=== PATIENT | male | born 1960 | race Caucasian/White ===

== ENCOUNTER 2025-02-25 11:10 | Observation (INO) | payer OTHER, SELFPAY ==
[2025-02-16 15:21] LABS: Hematocrit 42.1 % (40-54); Hemoglobin 13.8 g/dL (13.0-16.5); Immature Granulocytes Count 0.020 X10^3/uL (0.0-0.0); Mean Corp Hgb Conc 32.8 g/dL (32-36); Mean Corpuscular Volume 94.4 fL (80-94); Mean Platelet Vol. 11.4 fl (6.2-12.0); NRBC Flagged by Analyzer 0 % (0-5); Platelet Count 209 K/mm3 (150-450); RBC Distribution Width CV 13.5 % (11.6-14.6); RBC Distribution Width SD 47.3 fl (35.1-43.9); Red Blood Count 4.46 M/mm3 (4.6-6.2); White Blood Count 4.6 K/mm3 (4.4-11.0)
[2025-02-16 16:24] LABS: Anion Gap 11 (5-15); BUN 22 mg/dL (4-19); BUN/Creat Ratio 16.1 RATIO (10-20); Calcium,Total 9.4 mg/dL (7.6-11.0); Carbon Dioxide 25.3 mmol/L (21.0-32.0); Chloride 102 mmol/L (98-108); Glucose 136 mg/dL (70-99); Potassium 4.6 mmol/L (3.3-5.1)
[2025-02-24 10:53] VITALS: BMI 41.1
[2025-02-25] VITALS (13 sets, daily range): BP systolic 106–129; BP diastolic 64–80; PULSE 59–68; RESP 15–18; TEMP 36.1–36.6; O2SAT 96–99
--- NOTE | 2025-02-25 11:00 | EKG12_ITS ---
Test Reason : POST PCI
--- NOTE | 2025-02-25 11:03 | DCINST_ITS ---
Discharge Instructions
--- NOTE | 2025-02-25 11:03 | PCM.DC ---
Discharge Instructions DC O2, CPAP, BIPAP needs Home O2 Discharge instructions: No Dressing / Incision May resume sexual activity in: 1-2 weeks Dressing / Incision Call your doctor if your incision/area has: Continuous Slow Oozing, Sudden Increased Bleeding, Increased Pain/ Swelling, Increased Redness and Foul Smelling Discharge Follow Up Care Please Follow Up With: Gaston Cantu MD When: 2-4 weeks Test Results: Test results from this visit will be discussed in further detail at your follow-up appointment, if applicable. Discharge Plan Admission Attending Provider: Gaston Cantu Primary Care Provider: Christopher Acosta Instructions Print Language: Nigerien Discharge Orders/Prescriptions Prescriptions: New clopidogrel 75 mg Tablet 75 mg PO DAILY Qty: 30 11RF nitroglycerin 0.4 mg Tablet, Sublingual 0.4 mg sublingual Q5M PRN (Reason: Cardiac/Chest Pain) Qty: 15 3RF metoprolol tartrate 25 mg Tablet 12.5 mg PO BID Qty: 60 6RF Continued pioglitazone 45 mg tablet 45 mg PO QDAY levothyroxine [Synthroid] 125 mcg tablet 125 mcg PO QDAY rosuvastatin 10 mg tablet 10 mg PO QDAY bupropion HCl [Wellbutrin XL] 150 mg tablet extended release 24 hr 150 mg PO QAM dapagliflozin propanediol [Farxiga] 10 mg tablet 10 mg PO QDAY prasterone (DHEA) 50 mg capsule 50 mg PO QDAY coenzyme Q10 [Co Q-10] 50 mg capsule 50 mg PO QDAY cholecalciferol (vitamin D3) 125 mcg (5,000 unit) capsule 125 mcg PO QDAY fenofibrate 160 mg tablet 160 mg PO QDAY mecobalamin (vitamin B12) 1,000 mcg tablet,chewable 1,000 mcg PO QDAY ferrous sulfate [Feosol] 325 mg (65 mg iron) tablet 325 mg PO BID aspirin [Adult Aspirin Regimen] 81 mg tablet,delayed release (DR/EC) 81 mg PO DAILY Qty: 90 3RF Held metformin 1,000 mg tablet 1,000 mg PO BID Hold Instructions: Resume on 03/01/25. Referrals / Follow Up: Christopher Acosta PA [Primary Care Provider, Family Practice] Disposition Disposition (needs filled in before D/C Order can be placed): Home, Self Care
[2025-02-25 11:09] LABS: ACT Activated Clotting Time 225 sec (74-137)
[2025-02-25 11:09] LABS: ACT Activated Clotting Time 230 sec (74-137)
--- NOTE | 2025-02-25 11:37 | CRPHASE1_ITS ---
Patient Communication
--- NOTE | 2025-02-25 11:37 | CRPHASE1 ---
Patient Communication Patient Information PHII Cardiac Rehab Discussed with Patient:: Yes Guide to Cardiac Rehab Given to Patient:: Yes Cardiac Rehab Facility Choice List Given to Patient:: Yes Communication to Cardiac Rehab Choice Program [facility] CR PHII:: Communication Given to CR Property Management Bookkeeper:: Migel Miguel Phase II Cardiac Rehab:: Yes Sessions:: 36 sessions - 3 days/wk, 12 weeks Cardiac Rehabilitation Info Program Information Cardiac Rehabilitation Program Information: Cardiac Rehab The cardiac rehab team at [facility] consists of highly skilled exercise physiologists, nurses, respiratory therapists and physicians working together with you. Our purpose is to help you have a full recovery and achieve the goals you set for yourself. Over the years many of our patients have returned to activities they assumed they would never do again! We can help restore your confidence and motivation to make lifestyle changes that can have a significant impact on your health and quality of life! We can help answer questions and concerns you may have about exercise, lifestyle, medications, diet, stress and anxiety which are common following a hospitalization. WE monitor ECG and vital signs during exercise and discuss your progress with you and report to your physician(s). Cardiac Rehab is proven to help reduce readmissions, improve functional capacity and lower recurrence of problems with your heart. Our Cardiac Rehab program is Certified by the [place] [employer]monary [employer] (AACVPR) and Accredited by the [place] [employer] through our [facility]. You can contact us at . We invite you to call us with your questions or to get started in our program. If you have other questions or concerns be sure to ask your physician/provider during your follow-up visit. WE look forward to seeing you!
--- NOTE | 2025-02-25 11:38 | CRPH1.INSTRU ---
General Education Discussed with Patient CAD and cardiac anatomy and function:: Patient communicates acknowledgment Explanation of diagnoses and procedures:: Patient communicates acknowledgment Sign/Symptoms of KS:: Patient communicates acknowledgment Antiplatelet therapy: Patient communicates acknowledgment Proper use of NTG-SL: Patient communicates acknowledgment Emergency procedures and activation of EMS: Patient communicates acknowledgment Compliance of all prescribed medications: Patient communicates acknowledgment Smoking Risk Factors Patient Nicotine/Smoking Risk Factors Are:: Never smoked Dyslipidemia Risk Factors Patient Dyslipidemia Risk Factors Are:: Total Cholesterol, Triglycerides, HDL and LDL Recommendations Recommendations Include:: Lipid profile not available, Reviewed NCEP/ATP guidelines and Therapeutic Lifestyle Change dietary guidelines Response Code Dyslipidemia Response Code:: Patient communicates acknowledgment Overweight/Obesity Risk Factors Patient Overweight/Obesity Risk Factors Are:: Overweight = 26-29 Recommendations Recommendations Include:: Weight loss of 5-10%, Reduced calorie diet and Exercise 5-7 times/week Response Code Overweight/Obesity:: Patient communicates acknowledgment Hypertension Risk Factors Patient Hypertension Risk Factors Are:: No documented hx of HTN Heart Disease Risk Factors Patient Heart Disease Risk Factors Are:: Family history of heart disease < 65 years old Response Code Heart Disease Response Code:: Not instructed Diabetes Risk Factors Patient Diabetes Risk Factors Are:: Elevated blood sugars and Post-op hyperglycemia Recommendations Recommendations Include:: Maintain fasting blood sugars 70-110 md/dL, Maintain HgbA1c of 6% or less, Monitor blood sugar as prescribed, Diabetic dietary guidelines and Decrease/maintain body weight Response Code Diabetes:: Patient communicates acknowledgment Metabolic Syndrome Risk Factors Patient Metabolic Syndrome Risk Factors Are [3 of 5]:: Fasting blood sugar > 100 mg/dL, Waist circumference > 35 [female] or 40 [male], High triglyceride >150 and Low HDL <40 [male] or < 50 [female] Recommendations Recommendations Include:: Patient is diabetic and Encouraged follow-up with Primary Care Physician Response Code Metabolic Syndrome Response Code:: Patient communicates acknowledgment Sedentary Risk Factors Patient Sedentary Risk Factors Are:: Lack of regular exercise Recommendations Recommendations Include:: Aerobic exercise 5-7 times/week for 20-30 minutes continuously, Benefits of regular exercise, Discussed home walking program and Monitored Outpatient Cardiac Rehab Response Code Sedentary Response Code:: Patient communicates acknowledgment Stress Recommendations Recommendations Include:: Identification of stressors, and assessment of coping skills and Stress management techniques Response Code Stress Response Code:: Patient communicates acknowledgment
[2025-02-25] MEDS: 0.9% Normal Saline (1000mL) 1,000 ML 150 ML IV (12:48)
[2025-02-25] MEDS: Pioglitazone Hydrochloride 45 MG Tablet PO (13:00)
--- NOTE | 2025-02-25 14:46 | PHA.DC_ITS ---
Pharmacy DC Med Rec Counseling
--- NOTE | 2025-02-25 14:46 | PHA.DC.MC.R ---
Pharmacy [facility] Counseling Pharmacy Service has performed discharge medication reconciliation and counseling for this patient. The patient's discharge medication list was reviewed for discrepancies and discrepancies were resolved. The patient was counseled on the following discharge medications and changes in medications for homegoing were reviewed. The Reason for Use, instructions for use, and potential side effects were reviewed for all new medications. The patient's questions regarding all of their medications were answered. 1. Clopidogrel 75 mg PO daily 2. Metoprolol tartrate 12.5 mg PO BID 3. Nitroglycerin 0.4 mg SL Q5M PRN chest pain The patient was able to verbally demonstrate an understanding of their discharge medications. Medications at Discharge Home Medications bupropion HCl 150 mg 24 hr tablet, extended release (Wellbutrin XL) 150 mg PO QAM 01/31/25 cholecalciferol (vitamin D3) 125 mcg (5,000 unit) capsule 125 mcg PO QDAY 01/31/25 coenzyme Q10 50 mg capsule (Co Q-10) 50 mg PO QDAY 01/31/25 dapagliflozin propanediol 10 mg tablet (Farxiga) 10 mg PO QDAY 01/31/25 fenofibrate 160 mg tablet 160 mg PO QDAY 01/31/25 levothyroxine 125 mcg tablet (Synthroid) 125 mcg PO QDAY 01/31/25 mecobalamin (vitamin B12) 1,000 mcg chewable tablet 1,000 mcg PO QDAY 01/31/25 metformin 1,000 mg tablet 1,000 mg PO BID 01/31/25 Held on 02/25/25. Instructions: Resume on 03/01/25. pioglitazone 45 mg tablet 45 mg PO QDAY 01/31/25 prasterone (DHEA) 50 mg capsule 50 mg PO QDAY 01/31/25 rosuvastatin 10 mg tablet 10 mg PO QDAY 01/31/25 aspirin 81 mg tablet,delayed release (Adult Aspirin Regimen) 81 mg PO DAILY #90 tabs 02/16/25 ferrous sulfate 325 mg (65 mg iron) tablet (Feosol) 325 mg PO BID 02/16/25 clopidogrel 75 mg tablet 75 mg PO DAILY #30 tabs 02/25/25 metoprolol tartrate 25 mg tablet 12.5 mg (1/2 x 25 mg) PO BID #60 tabs 02/25/25 nitroglycerin 0.4 mg sublingual tablet 0.4 mg sublingual Q5M PRN Cardiac/Chest Pain #15 tabs 02/25/25
[2025-02-25] MEDS: Cholecalciferol (Vit D3) 125 MCG CAPSULE (5,000 UNITS) PO (16:29)
[2025-02-26 00:42] VITALS: BP 107/68; PULSE 56; RESP 16; TEMP 36.1; O2SAT 96
[2025-02-26 04:42] VITALS: BP 97/55; PULSE 55; RESP 16; TEMP 36; O2SAT 96
[2025-02-26 06:42] VITALS: O2SAT 94
[2025-02-26 07:21] LABS: Hematocrit 38.3 % (40-54); Hemoglobin 12.7 g/dL (13.0-16.5); Mean Corp Hgb Conc 33.2 g/dL (32-36); Mean Corpuscular Volume 93.0 fL (80-94); Mean Platelet Vol. 10.7 fl (6.2-12.0); Platelet Count 193 K/mm3 (150-450); RBC Distribution Width CV 13.6 % (11.6-14.6); RBC Distribution Width SD 46.5 fl (35.1-43.9); Red Blood Count 4.12 M/mm3 (4.6-6.2); White Blood Count 4.3 K/mm3 (4.4-11.0)
[2025-02-26 07:51] LABS: AST(SGOT) 17 U/L (<=37); Alanine Aminotransfer ALT/SGPT 7 U/L (<=46); Albumin, Serum 3.6 g/dL (3.4-4.8); Alkaline Phosphatase 44 U/L (40-129); Anion Gap 9 (5-15); BUN 18 mg/dL (4-19); BUN/Creat Ratio 14.7 RATIO (10-20); Calcium,Total 8.5 mg/dL (7.6-11.0); Carbon Dioxide 20.9 mmol/L (21.0-32.0); Chloride 107 mmol/L (98-108); Estimated Creatinine Clearance 73.75 ml/min (50-250); Globulin 2.7 g/dL (2.2-4.2); Glucose 178 mg/dL (70-99); Potassium 3.9 mmol/L (3.3-5.1)
--- NOTE | 2025-02-26 08:10 | PCM.PN.CARD ---
Subjective Subjective Patient seen and evaluated. Objective Data Vital Signs: Vital Signs Temp Pulse Resp BP Pulse Ox O2 Del Method 96.8 F L 55 L 16 97/55 L 96 Room Air 02/26/25 04:42 02/26/25 04:42 02/26/25 04:42 02/26/25 04:42 02/26/25 04:42 02/26/25 04:42 Oxygen Delivery Method Room Air Weight: 255 lb Body Mass Index (BMI) 41.1 Intake & Output: Intake and Output for Last 24 Hours 02/24/25 02/25/25 02/26/25 23:59 23:59 23:59 Intake Total 1560 / 2060 800 / 800 Output Total 425 / 1075 1250 / 1250 Balance 1135 / 985 -450 / -450 Lab / Micro Data 02/26/25 06:24 02/26/25 06:24 Labs: Laboratory Results - last 24 hr 02/25/25 09:01: Activated Clotting Time 225 H 02/25/25 09:52: Activated Clotting Time 230 H 02/26/25 06:24: WBC 4.3 L, RBC 4.12 L, Hgb 12.7 L, Hct 38.3 L, MCV 93.0, MCH 30.8, MCHC 33.2, RDW Std Deviation 46.5 H, RDW Coeff of Mindy 13.6, Plt Count 193, MPV 10.7, Sodium 137, Potassium 3.9, Chloride 107, Carbon Dioxide 20.9 L, Anion Gap 9, BUN 18, Creatinine 1.21 H, Estim Creat Clear Calc 73.75, Est GFR (MDRD) Non-Af 67, BUN/Creatinine Ratio 14.7, Glucose 178 H, Calcium 8.5, Total Bilirubin 0.34, AST 17, ALT 7, Alkaline Phosphatase 44, Total Protein 6.3, Albumin 3.6, Globulin 2.7, Albumin/Globulin Ratio 1.3 Cardiology Labs/Tests 02/26/25 06:24: WBC 4.3 L, RBC 4.12 L, Hgb 12.7 L, Hct 38.3 L, MCV 93.0, MCH 30.8, MCHC 33.2, Plt Count 193, MPV 10.7, Sodium 137, Potassium 3.9, Chloride 107, Carbon Dioxide 20.9 L, Anion Gap 9, BUN 18, Creatinine 1.21 H, Est GFR (MDRD) Non-Af 67, BUN/Creatinine Ratio 14.7, Glucose 178 H, Calcium 8.5, Total Bilirubin 0.34 Rhythm: EKG: ECHO: Stress Test: Cardiac Cath: PCI: CT Surgery: Holter monitor: EPS: PPM: CXR: Chest CT Scan: Physical Exam Const alert and oriented x3 Orientation / Consciousness: awake HEENT normocephalic Neck full ROM Carotids: normal carotid upstroke Chest inspection of chest normal Cardio regular rate and regular rhythm Rhythm: regular rhythm and abnormal rhythm Extremity normal to inspection Assessment & Plan Assessment/Plan (1) Agatston coronary artery calcium score greater than 400: PLAN: Patient was noted to have elevated calcium score with cardiac catheterization demonstrating an LAD stenosis diagonal stenosis and right coronary artery stenosis. (2) CAD (coronary artery disease): PLAN: Patient underwent PCI of the LAD and diagonal vessel. Interval staged PCI of the right coronary artery will be undertaken (3) Hyperlipidemia: PLAN: Continue aggressive risk factor modification
--- NOTE | 2025-02-26 08:19 | DCINST_ITS ---
Discharge Instructions
--- NOTE | 2025-02-26 08:19 | PCM.DC ---
Discharge Instructions DC O2, CPAP, BIPAP needs Home O2 Discharge instructions: No Dressing / Incision Discharge Activity: Return to Normal Activity May resume sexual activity in: 1-2 weeks Lifting Restrictions: 10 pounds and also avoid any pushing or pulling for 3 days after your test. Additional Activity Instructions:: You must have someone drive you home. Do not drive until instructed by your doctor. You must have someone stay with you all night after your test. Rest in bed or on the couch until the next morning. Limit the number of times you go up and down stairs the day of your test. Apply pressure to the puncture site if you sneeze or cough. Dressing / Incision Call your doctor if your incision/area has: Continuous Slow Oozing, Sudden Increased Bleeding, Increased Pain/ Swelling, Increased Redness and Foul Smelling Discharge Call your doctor if you observe: Fever of 101 or Higher Additional Dressing/Incision Instructions:: Keep the dressing (bandage) on until the next morning. You may then shower, but do not take a tub bath for 5 days after your test. It is normal to have some tenderness and discomfort at the puncture site. Sometimes bruising also occurs. However, if pain, numbness, or coldness occurs below the puncture site (in your leg, toes, arms or fingers) call your doctor at once. You may have a small, marble sized knot at the puncture site. This is normal. Do not rub it. It will go away in 4-6 weeks. Bleeding can occur from the area where the puncture was done. Blood may spurt or drip from the site. If blood spurts, apply pressure right away to stop bleeding and call 911. Although rare, bleeding into the tissue (hematoma) can also occur. If this happens, a large, firm area goose egg under the skin will appear. If any of these occur, lie down as flat as you can and have someone apply firm pressure to the cath site with a gauze pad or a clean washcloth for 10-15 minutes. Call 911 or go to the Emergency Department. Follow Up Care Please Follow Up With: Gaston Cantu MD When: My office will call you for follow-up appointment and set up to fix the other blood vessel Test Results: Test results from this visit will be discussed in further detail at your follow-up appointment, if applicable. Discharge Plan Admission Admit Date/Time: 02/25/25 11:10 Attending Provider: Gaston Cantu Primary Care Provider: Christopher Acosta Discharge Orders/Prescriptions Prescriptions: New clopidogrel 75 mg Tablet 75 mg PO DAILY Qty: 30 11RF nitroglycerin 0.4 mg Tablet, Sublingual 0.4 mg sublingual Q5M PRN (Reason: Cardiac/Chest Pain) Qty: 15 3RF metoprolol tartrate 25 mg Tablet 12.5 mg PO BID Qty: 60 6RF Continued pioglitazone 45 mg tablet 45 mg PO QDAY levothyroxine [Synthroid] 125 mcg tablet 125 mcg PO QDAY rosuvastatin 10 mg tablet 10 mg PO QDAY bupropion HCl [Wellbutrin XL] 150 mg tablet extended release 24 hr 150 mg PO QAM dapagliflozin propanediol [Farxiga] 10 mg tablet 10 mg PO QDAY prasterone (DHEA) 50 mg capsule 50 mg PO QDAY coenzyme Q10 [Co Q-10] 50 mg capsule 50 mg PO QDAY cholecalciferol (vitamin D3) 125 mcg (5,000 unit) capsule 125 mcg PO QDAY fenofibrate 160 mg tablet 160 mg PO QDAY mecobalamin (vitamin B12) 1,000 mcg tablet,chewable 1,000 mcg PO QDAY ferrous sulfate [Feosol] 325 mg (65 mg iron) tablet 325 mg PO BID aspirin [Adult Aspirin Regimen] 81 mg tablet,delayed release (DR/EC) 81 mg PO DAILY Qty: 90 3RF Held metformin 1,000 mg tablet 1,000 mg PO BID Hold Instructions: Resume on 03/01/25. Referrals / Follow Up: Christopher Acosta PA [Primary Care Provider, Family Practice] Disposition Discharge Orders: Discharge Patient (Routine); Ordered 02/26/25 Ordered By: Dr. Migel Miguel
[2025-02-26 08:44] VITALS: BP 121/69; PULSE 57; RESP 18; TEMP 36.5; O2SAT 98
[2025-02-26] MEDS: Aspirin E.C. 81 MG Tablet PO (08:52)
[2025-02-26] MEDS: Pioglitazone Hydrochloride 45 MG Tablet PO (08:52)
[2025-02-26] MEDS: Cholecalciferol (Vit D3) 125 MCG CAPSULE (5,000 UNITS) PO (08:52)
[2025-02-26 08:53] VITALS: PULSE 57
[2025-02-26] MEDS: buPROPion (XL) 150 MG TABLET.XL PO (10:34)
--- NOTE | 2025-02-26 11:00 | EKG12_ITS ---
Test Reason : AM EKG
== END 2025-02-26 12:17 | disposition home or self-care (01) ==
LOC: PCU 11:30
PROVIDERS: Internal Medicine Cardiovascular Disease; Admitting Provider Internal Medicine Cardiovascular Disease; PCP Physician Assistant; Referring Provider Internal Medicine Cardiovascular Disease; Visit Provider Internal Medicine Cardiovascular Disease
DX: R93.1 Abnormal findings on diagnostic imaging of heart and coronary circulation (principal); E11.9 Type 2 diabetes mellitus without complications; E78.00 Pure hypercholesterolemia, unspecified; Z82.49 Family history of ischemic heart disease and other diseases of the circulatory system; Z79.899 Other long term (current) drug therapy; Z79.890 Hormone replacement therapy; Z79.82 Long term (current) use of aspirin; E03.9 Hypothyroidism, unspecified; Z79.84 Long term (current) use of oral hypoglycemic drugs; F32.A Depression, unspecified; I25.10 Atherosclerotic heart disease of native coronary artery without angina pectoris
CPT/HCPCS: 36415; 80048; 80053; 85025; 85027; 85347; 92928; 92929; 92972; 93005; 93458; 96360; 96361; 99152; 99153; 99221; C1725; C1760; C1761; C1894; Q9967; C1769; C1874; C1887; C9600; C9601; G0378

== ENCOUNTER 2025-03-29 10:18 | Observation (INO) | payer OTHER, SELFPAY ==
[2025-03-18 10:21] LABS: Hematocrit 42.8 % (40-54); Hemoglobin 13.7 g/dL (13.0-16.5); Immature Granulocytes Count 0.010 X10^3/uL (0.0-0.0); Mean Corp Hgb Conc 32.0 g/dL (32-36); Mean Corpuscular Volume 93.7 fL (80-94); Mean Platelet Vol. 11.5 fl (6.2-12.0); NRBC Flagged by Analyzer 0 % (0-5); Platelet Count 195 K/mm3 (150-450); RBC Distribution Width CV 14.0 % (11.6-14.6); RBC Distribution Width SD 47.5 fl (35.1-43.9); Red Blood Count 4.57 M/mm3 (4.6-6.2); White Blood Count 3.9 K/mm3 (4.4-11.0)
[2025-03-18 11:05] LABS: Anion Gap 10 (5-15); BUN 22 mg/dL (4-19); BUN/Creat Ratio 14.6 RATIO (10-20); Calcium,Total 9.4 mg/dL (7.6-11.0); Carbon Dioxide 25.3 mmol/L (21.0-32.0); Chloride 103 mmol/L (98-108); Glucose 154 mg/dL (70-99); Potassium 5.0 mmol/L (3.3-5.1)
--- NOTE | 2025-03-25 21:07 | HP.PCM_ITS ---
History and Physical The patient is a 64-year-old male with a history of diabetes mellitus and hypercholesterolemia, presenting for evaluation of elevated coronary artery calcium (CAC) score. The patient reports no current symptoms, including chest pain, dyspnea, or dizziness. He underwent a CT scan, which revealed a total CAC score of 1,411, indicating more calcium than 90% of individuals his age. He has also lost 5 of his friends recently from heart disease. He proceed with [facility] on 02/25/2025 that showed Severe two-vessel disease involving the LAD, diagonal, and proximal right coronary artery. He proceeded with Successful IVL/PTCA/CHRISTIE Mid LAD using Charlie Sampson 3.0x22 mm. Ostial D2 silated with 2.0 mm balloon and Successful CHRISTIE Prox D1 using Butler Sampson 2.5x8 mm. It was recommended to Consider staged PCI to the LAD and then later on to the RCA. He has a significant family history of cardiovascular disease. Among his siblings, one of heart failure, another has undergone double bypass surgery and heart valve replacement, a third has had stents placed, and a fourth recently experienced a mild stroke. He denies chest pain he has had occasional palpitations he does not have any shortness of breath and no pedal edema. He works actively in the [employer]. His physical exam is unremarkable his electrocardiogram demonstrates sinus rhythm with a rate of 64 bpm. He is currently on treatment for diabetes and hypercholesterolemia. Intake Vital Signs: See EMR Intake Visit Reasons: Staged intervention Director Of Design Required: No Accompanied by: Significant Other Is patient in pain?: No Allergies No Known Allergies Allergy (Verified 02/16/25 13:02) Medications: See EMR [facility] Medical History Depression GERD (gastroesophageal reflux disease) Hypothyroidism Hyperlipidemia Type 2 diabetes mellitus with other specified complication SOB (shortness of breath) Family history of heart disease Chest pain Surgical History No history of previous surgery Family History Brother CHF (congestive heart failure) Brother Myocardial infarction HI x2 and many stents Brother S/P CABG x 2 Sister CVA (cerebral vascular accident) Social History Smoking Status: Never smoker alcohol intake: never substance use type: does not use ROS Const Const: Positive for fatigue; Negative for weakness, daytime sleepiness or difficulty sleeping ENT ENT: Negative for dizziness or Nosebleed/epistaxis Cardio Chest Pain: No Palpitations: Yes (fluttering ) Edema: None Resp Respiratory: Negative for SOB with activity, SOB at rest, SOB orthopnea\SOB lying down or Cough GI GI: Positive for heartburn; Negative nausea or vomiting Neuro Neuro: Negative for dizziness, lightheadedness, near syncope or weakness Endo Endo: Positive for fatigue Cardiology Exam Const Appearance: cooperative, healthy appearing, no acute distress, well developed and well groomed Nutritional Appearance: average body habitus and well nourished Orientation: alert, awake and oriented x3 Head Head: normal to inspection, normocephalic and atraumatic Ears: hearing grossly normal bilaterally and external ears normal Nose: external nose normal, nares normal, nasal mucous membranes and turbinates normal, septum normal and no nasal discharge Face and Sinus: face symmetric Mouth: oral mucosae normal, tongue normal, oropharynx normal and moist mucous membranes Teeth and gingiva: dentition normal Throat: posterior oropharynx normal, tonsils normal and uvula midline Eyes General: appearance normal, both eyes and all related structures Eyelids: eyelids normal Conjunctivae: conjunctivae normal Pupils: PERRL, normal by confrontation and accommodation normal EOM: EOM intact bilaterally Neck Neck: normal visual inspection, trachea midline and no JVD JVD: +5 Carotids: normal carotid upstroke and bounding pulses Chest Chest inspection: normal inspection of the chest, symmetric chest movement and normal respiratory effort Auscultation: Bilateral: Clear to Auscultation Cardio Palpation: normal PMI Rate: regular rate Rhythm: regular rhythm Heart sounds: S1 normal, S2 normal and normal, physiologic split S2; Negative rub, gallop or murmur GI GI: normal to inspection, soft, no hepatosplenomegaly and bowel sounds present Neuro General: patient alert, patient awake, patient oriented x3, gait normal, moves all extremities and no focal sensory deficit Skin Skin: no rashes or lesions noted Extremities Pulses: Normal: Right Femoral Pulse, Left Femoral Pulse, Right Dorsalis Pedis Pulse, Left Dorsalis Pedis Pulse, Right Posterior Tibial Pulse, Left Posterior Tibial Pulse, Right Radial Pulse and Left Radial Pulse Lower Extremity Edema: None: Bilateral Musculoskel Musculoskeletal: No joint tenderness Psych Psychological: normal affect Supplemental Info Supplemental Information Coronary Calcium Scoring 01/23/25 Findings Coronary Artery Left Main (LM): 263 Left Anterior Descending (LAD): 550 Left Circumflex (LCX): 0 Right Coronary Artery (RCA): 598 Total Agatston Score: 1,411 Conclusion: Extensive two-vessel atherosclerotic plaquing including the distal left main. Assessment and Plan Assessment and Plan (1) Agatston coronary artery calcium score greater than 400: Status: Acute Plan: He proceeded with [facility] on 02/25/2025 that resulted in stenting and he will now return for staged intervention. (2) Hyperlipidemia: Status: Acute Plan: He does have a history of hyperlipidemia with his lipid profile being excellent at this time with a total cholesterol 131 HDL of 43 LDL of 63 triglycerides 171. In July lipoprotein B level is 80 normal being less than 90. (3) Family history of heart disease: Status: Acute Plan: He does have a significant family history of cardiac disease as noted above and with him being a diabetic he is concerned that with his very high calcium score this needs to be tackled. He will continue with risk factor modification. Thank you for allowing me to participate in the care of your patient. Please don't hesitate to call if any issues arise.
[2025-03-28 10:41] VITALS: BMI 41.1
[2025-03-29] VITALS (11 sets, daily range): BP systolic 97–107; BP diastolic 62–70; PULSE 51–62; RESP 14–18; TEMP 35.9–36.7; O2SAT 93–98
--- NOTE | 2025-03-29 10:22 | PCM.DC ---
Discharge Instructions DC O2, CPAP, BIPAP needs Home O2 Discharge instructions: No Dressing / Incision Discharge Activity: Return to Normal Activity May resume sexual activity in: No Restrictions Dressing / Incision Call your doctor if your incision/area has: Continuous Slow Oozing, Sudden Increased Bleeding, Increased Pain/ Swelling, Increased Redness, Foul Smelling Discharge and Swelling at the incision site Call your doctor if you observe: Fever of 101 or Higher, Coldness, Increased Pain, Numbness or Tingling and Change in Color Follow Up Care Please Follow Up With: Gaston Cantu MD When: 2-4 weeks Test Results: Test results from this visit will be discussed in further detail at your follow-up appointment, if applicable. Discharge Plan Admission Attending Provider: Migel Miguel Primary Care Provider: Christopher Acosta Instructions Print Language: Romanian Discharge Orders/Prescriptions Prescriptions: Continued pioglitazone 45 mg tablet 45 mg PO QDAY levothyroxine [Synthroid] 125 mcg tablet 125 mcg PO QDAY rosuvastatin 10 mg tablet 10 mg PO QDAY bupropion HCl [Wellbutrin XL] 150 mg tablet extended release 24 hr 150 mg PO QAM dapagliflozin propanediol [Farxiga] 10 mg tablet 10 mg PO QDAY prasterone (DHEA) 50 mg capsule 50 mg PO QDAY coenzyme Q10 [Co Q-10] 50 mg capsule 50 mg PO QDAY cholecalciferol (vitamin D3) 125 mcg (5,000 unit) capsule 125 mcg PO QDAY fenofibrate 160 mg tablet 160 mg PO QDAY mecobalamin (vitamin B12) 1,000 mcg tablet,chewable 1,000 mcg PO QDAY ferrous sulfate [Feosol] 325 mg (65 mg iron) tablet 325 mg PO BID aspirin [Adult Aspirin Regimen] 81 mg tablet,delayed release (DR/EC) 81 mg PO DAILY Qty: 90 3RF clopidogrel 75 mg Tablet 75 mg PO DAILY Qty: 30 11RF nitroglycerin 0.4 mg Tablet, Sublingual 0.4 mg sublingual Q5M PRN (Reason: Cardiac/Chest Pain) Qty: 15 3RF metoprolol tartrate 25 mg Tablet 12.5 mg PO BID Qty: 60 6RF Held metformin 1,000 mg tablet 1,000 mg PO BID Hold Instructions: Resume on 04/01/25. Referrals / Follow Up: Christopher Acosta PA [Primary Care Provider, [facility]] Disposition Disposition (needs filled in before D/C Order can be placed): Home, Self Care
--- NOTE | 2025-03-29 10:33 | CL.I_ITS ---
Patient Name: ALEKSANDRA AL Study Date: 03/29/2025 Performing: Migel Miguel MD Ht: 66 inches 167.64 cm : 1960 Wt: 255.3 lbs 115.67 kg Age: 64 Gender: male BSA: 2.22 PROCEDURE(S) PERFORMED IC12-(50034/C9600)CHRISTIE W/WO PTCA, SINGLE CORONARY ARTERY CLINICAL PROFILE AND CO-MORBIDITIES Indications: Other - Staged PCI Heart Failure: None CONCLUSIONS proximally using 3.75 mm balloon RECOMMENDATIONS ASA Indefinitley P2Y12 inhibitors for atleast 6 months DESCRIPTION OF PROCEDURE The patient arrived to the procedure lab. The risks and benefits of the procedure as well as a full description of our services here and current unavailability of surgical backup were fully explained to the patient and/or their significant other prior to the catheterization. The Timeout was completed, verifying the correct patient and procedure. The patient's procedural site was prepped and draped in the usual fashion. Local anesthetic was given subcutaneously to right radial region with Lidocaine 2%. Using a modified Seldinger technique, arterial access was obtained via the right radial artery, a 6Fr sheath was inserted.. Right Coronary Artery selective angiography was then performed in multiple views using a 6 Fr. AL 0.75 catheter AL 0.75 Guide catheter was inserted and engaged into the RCA. Runthrough Guide wire was advanced to the RCA. 3.0 x 34 Edison Drug Eluting stent was inserted. Drug Eluting stent was advanced across the lesion in the right coronary, proximal. 3 x 15 NC Emerge Balloon catheter was inserted post stent. 3.5 x 8 NC Euphora Balloon catheter was inserted post stent. Angiogram performed post balloon dilatation. 3.75 x 8 NC emerge Balloon catheter was inserted post stent. Angiogram performed post balloon dilatation. The arterial sheath was pulled and a TR Band was applied for hemostasis INTERVENTION INFORMATION LESION SITE: RCA (Proximal) Lesion Complexity: High/C, lesion length: 32 mm Pre Stenosis: 90 % Pre intervention KERRIE flow: 3 PROCEDURE: Drug Eluting Stent with post dilatation Post Stenosis: 0 % Post intervention KERRIE flow: 3 Lesion Devices: Terumo .014 180cm Runthrough Extra Floppy straight Cordis 6 Fr AL.75 100cm Guide Catheter Avison Youngtronic 3.0 x 34 MYKEL FRONTIER CHRISTIE [employer] NC EMERGE MR 3.00x15 BALLOON Medtronic NC EUPHORA RX 3.5x08 BALLOON [employer] NC EMERGE MR 3.75x08 BALLOON COMPLICATIONS No Complications PROCEDURE MEDICATIONS Fentanyl 50 mcg IV Versed 1 mg IV Oxygen: 2 L/min via nasal cannula Heparin given IA 03/29/2025 09:45:51 Heparin 6000 unit(s) IV 03/29/2025 09:48:54 Heparin 3000 unit(s) IV 03/29/2025 10:21:49 Nitro 100 mcg IC 03/29/2025 10:12:19 Plavix 300 mg PO 03/29/2025 10:17:47 Verapamil 2.5mg, Ntg 200mcgs, 2000 units of Heparin given IA 03/29/2025 09:45:51 IV Bolus: .9 NaCl 400 ml total 03/29/2025 10:14:46 SUMMARY OF HEMODYNAMIC DATA Time AIR REST ECG 08:32:27 AO 73/43 (53) SA 09:51:25 AO 90/62 (74) 10:00:43 AO 102/70 (84) 10:05:29 Signed By Migel Miguel MD On 03/29/2025 10:32:38 Migel Miguel MD
[2025-03-29] MEDS: 0.9% Normal Saline (1000mL) 1,000 ML 150 ML IV (11:35)
--- OUTSIDE RECORDS SUMMARY | 2025-03-29 12:08 | XMS RPT_ITS | CCD ---
Author Organization [facility] Care Team Providers Care Dramatic Agent Name Role Phone Gaston Cantu Attending Unavailable Pepe, Gaston Consulting Unavailable [place] PAMatthew Primary Care Unavailable Pepe, Gaston Admitting Unavailable Pepe, Gaston Referring Unavailable Lamont, Migel Referring Unavailable Lamont, Migel Attending Unavailable [place] PA, Matthew Primary Care Unavailable [place] PA, Matthew Referring Unavailable [place] PA, Matthew Attending Unavailable [place] PA, Matthew Primary Care Unavailable [place] PA, Matthew Referring Unavailable [place] PA, Matthew Primary Care Unavailable Pepe, Gaston Attending Unavailable Pepe, [place] Attending Unavailable [place] PA, Matthew Primary Care Unavailable Pepe, [place] Attending Unavailable [place] PA, Matthew Primary Care Unavailable Pepe, [place] Admitting Unavailable Pepe, Gaston Referring Unavailable [place] PAMatthew Primary Care Physician Matthew Lou [facility] Referring Provider Dr. Gaston Cantu MD Attending Physician Dr. Gaston Cantu MD Admitting Physician [phone] Dr. Gaston Cantu MD Referring Provider [phone] Dr. Gaston Cantu MD Nurse Practitioner [phone] Medications Current Medications Medication Drug Class(es) Dates Sig (Normalized) Sig (Original) aspirin 81 mg delayed release oral tablet (1 source) Platelet Aggregation Inhibitor, Nonsteroidal Anti-inflammatory Drug Start: 02-16-2025 take 1 tablet by mouth once daily 24 hr buPROPion hydrochloride 150 mg extended release oral tablet (1 source) Aminoketone Start: 01-31-2025 take 1 tablet by mouth once daily in the morning cholecalciferol 0.125 mg oral capsule (2 sources) Vitamin D Start: 01-31-2025 take 1 capsule by mouth once daily Start: 01-31-2025 End: 02-16-2025 take 1 capsule by mouth every week Cholecalciferol (Vitamin D3) 1,250 mcg (50,000 unit) capsule Discontinued 1250 ug PO EVERY WEEK January 30, 2025 11:00pm February 16, 2025 12:02pm clopidogrel 75 mg oral tablet (1 source) P2Y12 Platelet Inhibitor Start: 02-25-2025 take 1 tablet by mouth once daily Start: 02-25-2025 take 1 tablet by mouth once [place] dapagliflozin 10 mg oral tablet (1 source) Sodium-Glucose Cotransporter 2 Inhibitor Start: 01-31-2025 take 1 tablet by mouth once daily fenofibrate 160 mg oral tablet (1 source) Peroxisome Proliferator Receptor alpha Agonist Start: 01-31-2025 take 1 tablet by mouth once daily ferrous sulfate 325 mg oral tablet (2 sources) Start: 02-16-2025 take 1 tablet by mouth twice daily Start: 01-31-2025 End: 02-16-2025 take 1 tablet by mouth once daily Ferrous Sulfate (Feosol) 325 mg (65 mg iron) tablet Discontinued 325 mg PO daily January 30, 2025 11:00pm February 16, 2025 12:03pm levothyroxine sodium 0.125 mg oral tablet (1 source) l-Thyroxine Start: 01-31-2025 take 1 tablet by mouth once daily mecobalamin 1 mg chewable tablet (1 source) Start: 01-31-2025 take 1 tablet by mouth once daily metFORMIN hydrochloride 1000 mg oral tablet (1 source) Biguanide Start: 01-31-2025 take 1 tablet by mouth twice daily metoprolol tartrate 25 mg oral tablet (1 source) beta-Adrenergic Simeon Start: 02-25-2025 Start: 02-25-2025 nitroglycerin 0.4 mg subling ual tablet (1 source) Nitrate Vasodilator Start: 02-25-2025 Start: 02-25-2025 pioglitazone 45 mg oral tablet (1 source) Peroxisome Proliferator Receptor alpha Agonist, Peroxisome Proliferator Receptor gamma Agonist, Thiazolidinedione Start: 01-31-2025 take 1 tablet by mouth once daily prasterone 50 mg oral capsule (1 source) Start: 01-31-2025 take 1 capsule by mouth once daily rosuvastatin calcium 10 mg oral tablet (1 source) HMG-CoA Reductase Inhibitor Start: 01-31-2025 take 1 tablet by mouth once daily ubidecarenone 50 mg oral capsule (1 source) Start: 01-31-2025 Problems Problem Classification Problem Date Documented Date Episodic/Chronic Coronary atherosclerosis and other heart disease (4 sources) Atherosclerotic heart disease of [place] coronary artery without angina pectoris; Translations: [Coronary arteriosclerosis] Onset: 02-25-2025 03-01-2025 Chronic Comment on above: IVL/PTCA/CHRISTIE to mid LAD using [place] 3.0 X22 mm; CHRISTIE to proximal D1 using [place] 2.5 X8mm. Consider staged PCI of prox RCA 02/25/25 Coronary atherosclerosis and other heart disease (1 source) Stented coronary artery; Translations: [Presence of coronary angioplasty implant and graft] Onset: 02-25-2025 03-01-2025 Episodic Comment on above: IVL/PTCA/CHRISTIE to mid LAD using [place] 3.0 X22 mm; CHRISTIE to proximal D1 using [place] 2.5 X8mm. Consider staged PCI of prox RCA 02/25/25 Diabetes mellitus with complications (2 sources) Type 2 diabetes mellitus with other specified complication; Translations: [Type 2 diabetes mellitus] Onset: 01-24-2025 01-31-2025 Chronic Disorders of lipid metabolism (5 sources) Hyperlipidemia, unspecified; Translations: [Hyperlipidemia] Onset: 02-28-2025 01-31-2025 Chronic Esophageal disorders (1 source) Gastroesophageal reflux disease; Translations: [Gastro-esophageal reflux disease without esophagitis] 01-31-2025 Chronic Mood disorders (1 source) Depressive disorder; Translations: [Depression] 01-31-2025 Chronic Nonspecific chest pain (2 sources) Chest pain, unspecified; Translations: [Chest pain] Onset: 02-16-2025 01-31-2025 Episodic Other lower respiratory disease (1 source) Shortness of breath; Translations: [Shortness of breath] Onset: 02-16-2025 Episodic Other lower respiratory disease (1 source) Dyspnea; Translations: [Shortness of breath] 01-31-2025 Episodic Other screening for suspected conditions (not mental disorders or infectious disease) (5 sources) Abnormal findings on diagnostic imaging of heart and coronary circulation; Translations: [Calcification of coronary artery] Onset: 02-28-2025 02-16-2025 Episodic Residual codes; unclassified (2 sources) Family history of cardiac disorder; Translations: [Family history of ischemic heart disease and other diseases of the circulatory system] 01-31-2025 Episodic Thyroid disorders (2 sources) Hypothyroidism, unspecified; Translations: [Hypothyroidism] Onset: 01-24-2025 01-31-2025 Chronic Results Test Name Value Interpretation Reference Range Facility 12 Lead EKGon 02-26-2025 12 Lead EKG [facility] Cardiovascular Services [address] [place] [address] 12 Lead EKG 02/26/25 0512 MR#: [id number] Acct: [id number] Name: ALEKSANDRA FINNEY Rep #: [id number] : 1960 64 From: Gaston Cantu MD Attending Dr: Dr. Gaston Cantu MD Status: DIS I NO Ordering Dr: Migel Miguel MD Date: 02/26/25 Location: [facility] Sex: M C Admitted: 02/25/25 Test Reason : AM EKG Blood Pressure : */* mmHG Vent. Rate : 57 BPM Atrial Rate : 57 BPM P-R Int : 162 ms QRS Dur : 80 ms QT Int : 426 ms P-R-T Axes : 38 30 25 degrees QTcB Int : 414 ms Sinus bradycardia Otherwise normal ECG When compared with ECG of 25-Feb-2025 11:49, MANUAL COMPARISON REQUIRED DATA IS UNCONFIRMED Confirmed by GASTON CANTU MD ([id number]), publishing editor NATE HEARD ([id number]) on 02/28/2025 6:32:38 AM Referred By: Gaston Cantu Confirmed By: GASTON CANTU MD 02/28/25 0632 Date Gaston Cantu MD CC: EUGENIO Lorenzana; Dr. Migel Miguel MD; Dr. Gaston Cantu MD Signed Normal [facility] Anion gap in Serum or Plasma Ordered By: Migel Miguel on 02-26-2025 Anion gap [Moles/Vol] 9 mmol/L 5-15 [facility] BUN/creatinine ratioOrdered By: Migel Miguel on 02-26-2025 Urea nitrogen/Creatinine [Mass ratio] 14.7 mg/mg 10-20 [facility] Bilirubin, totalOrdered By: Migel Miguel on 02-26-2025 Bilirubin [Mass/Vol] 0.34 mg/dL 0.00-1.30 [facility] CBC-Complete Blood Cnt No Di ffon 02-26-2025 Erythrocyte distribution width (RBC) [Ratio] 13.6 % Normal 11.6-14.6 [facility] Comment on above: Performed By: #### L 100.0500, L500.4050 #### [facility] Laboratory [address] [place], [address] Hematocrit (Bld) [Volume fraction] 38.3 % Low 40-54 [facility] Comment on above: Performed By: #### L 100.0500, L500.4050 #### [facility] [address] [place], [address] Hemoglobin (Bld) [Mass/Vol] 12.7 g/dL Low 13.0-16.5 [facility] Comment on above: Performed By: #### L 100.0500, L500.4050 #### [facility] [address] [place], [address] MCH (RBC) [Entitic mass] 30.8 pg Normal 27.0-32.0 [facility] Comment on above: Performed By: #### L 100.0500, L500.4050 #### [facility] [address] [place], [address] MCHC (RBC) [Mass/Vol] 33.2 g/dL Normal 32-36 [facility] Comment on above: Performed By: #### L 100.0500, L500.4050 #### [facility] [address] [place], [address] MCV (RBC) [Entitic vol] 93.0 fL Normal 80-94 [facility] Comment on above: Performed By: #### L 100.0500, L500.4050 #### [facility] [address] [place], [address] Platelet mean volume (Bld) [Entitic vol] 10.7 fL Normal 6.2-12.0 [facility] Comment on above: Performed By: #### L 100.0500, L500.4050 #### [facility] [address] [place], [address] Platelets (Bld) [#/Vol] 193 10*3/uL Normal 150-450 [facility] Comment on above: Performed By: #### L 100.0500, L500.4050 #### [facility] [address] [place], [address] RBC (Bld) [#/Vol] 4.12 10*6/uL Low 4.6-6.2 [facility] Comment on above: Performed By: #### L 100.0500, L500.4050 #### [facility] [address] [place], [address] RDW SD 46.5 fl High 35.1-43.9 [facility] Comment on above: Performed By: #### L 100.0500, L500.4050 #### [facility] [address] [place], [address] WBC (Bld) [#/Vol] 4.3 10*3/uL Low 4.4-11.0 [facility] Comment on above: Performed By: #### L 100.0500, L500.4050 #### [facility] [address] [place], [address] Carbon dioxide, total [Moles /volume] in Central venous bloodOrdered By: Migel Miguel on 02-26-2025 CO2 [Moles/Vol] 20.9 mmol/L Low 21.0-32.0 [facility] Chloride assayOrdered By: Eduard Miguel on 02-26-2025 Chloride [Moles/Vol] 107 mmol/L 98-108 [facility] Comprehensive Metabolic Prof ilon 02-26-2025 Albumin [Mass/Vol] 3.6 g/dL Normal 3.4-4.8 [facility] Comment on above: Performed By: #### L 100.0500, L500.4050 ####[facility] [address], [address] Albumin/Globulin [Mass ratio] 1.3 {ratio} Normal 0.9-2.4 [facility] Comment on above: Performed By: #### L 100.0500, L500.4050 ####[facility] [address] [place], [address] ALK PHOS 44 U/L Normal 40-129 [facility] Comment on above: Performed By: #### L 100.0500, L500.4050 ####[facility] [address] [place], [address] ALT [Catalytic activity/Vol] 7 U/L Normal <=46 [facility] Comment on above: Performed By: #### L 100.0500, L500.4050 ####[facility] [address] [place], [address] AST [Catalytic activity/Vol] 17 U/L Normal <=37 [facility] Comment on above: Performed By: #### L 100.0500, L500.4050 ####[facility] [address] [place], [address] Bilirubin [Mass/Vol] 0.34 mg/dL Normal 0.00-1.30 [facility] Comment on above: Performed By: #### L 100.0500, L500.4050 ####[facility] [address] [place], [address] BUN/CRE 14.7 RATIO Normal 10-20 [facility] Comment on above: Performed By: #### L 100.0500, L500.4050 ####[facility] [address] [place], [address] Calcium [Mass/Vol] 8.5 mg/dL Normal 7.6-11.0 [facility] Comment on above: Performed By: #### L 100.0500, L500.4050 ####[facility] [address] [place], [address] Chloride [Moles/Vol] 107 mmol/L Normal 98-108 [facility] Comment on above: Performed By: #### L 100.0500, L500.4050 ####[facility] [address] [place], [address] CO2 [Moles/Vol] 20.9 mmol/L Low 21.0-32.0 [facility] Comment on above: Performed By: #### L 100.0500, L500.4050 ####[facility] [address] [place], [address] Creatinine [Mass/Vol] 1.21 mg/dL High 0.70-1.20 [facility] Comment on above: Performed By: #### L 100.0500, L500.4050 ####[facility] [address] [place], [address] ECRCL 73.75 ml/min Normal 50-250 [facility] Comment on above: Performed By: #### L 100.0500, L500.4050 ####[facility] [address] [place], [address] GAP 9 Normal 5-15 [facility] Comment on above: Performed By: #### L 100.0500, L500.4050 ####[facility] [address], [address] GFR/1.73 sq M.predicted among non-blacks MDRD (S/P/Bld) [Vol rate/Area] 67 mL/min/{1.73_m2} Normal >60 [facility] Comment on above: Result Comment: mL/m in/1.73m2 CKD-EPI Creatinine Equation (2020) Performed By: #### L 100.0500, L500.4050 ####[facility] [address] [place], [address] Globulin (S) [Mass/Vol] 2.7 g/dL Normal 2.2-4.2 [facility] Comment on above: Performed By: #### L 100.0500, L500.4050 ####[facility] [address], [address] Glucose [Mass/Vol] 178 mg/dL High 70-99 [facility] Comment on above: Performed By: #### L 100.0500, L500.4050 ####[facility] [address], [address] Potassium [Moles/Vol] 3.9 mmol/L Normal 3.3-5.1 [facility] Comment on above: Performed By: #### L 100.0500, L500.4050 ####[facility] [address] [place], [address] Sodium [Moles/Vol] 137 mmol/L Normal 133-145 [facility] Comment on above: Performed By: #### L 100.0500, L500.4050 ####[facility] [address] [place], [address] T PROT 6.3 g/dL Normal 5.9-8.4 [facility] Comment on above: Performed By: #### L 100.0500, L500.4050 ####[facility] [address] [place], [address] Urea nitrogen [Mass/Vol] 18 mg/dL Normal 4-19 [facility] Comment on above: Performed By: #### L 100.0500, L500.4050 ####[facility] [address] [place], [address] Discharge Instructionon Discharge Instruction [facility] Medical Records Department [address] [place] [address] Instructions for Home/Discharge Instructions 02/26/25 0819 MR#: [id number] Acct: [id number] Name: ALEKSANDRA FINNEY Rep #: [id number] : 1960 64 From: Gaston Cantu MD PCP: EUGENIO Lorenzana Status:ADM SHANNAN Discharge Instructions DC O2, CPAP, BIPAP needs Home O2 Discharge instructions: No Dressing / Incision Discharge Activity: Return to Normal Activity May resume sexual activity in: 1-2 weeks Lifting Restrictions: 10 pounds and also avoid any pushing or pulling for 3 days after your test. Additional Activity Instructions:: You must have someone drive you home. Do not drive until instructed by your doctor. You must have someone stay with you all night after your test. Rest in bed or on the couch until the next morning. Limit the number of times you go up and down stairs the day of your test. Apply pressure to the puncture site if you sneeze or cough. Dressing / Incision Call your doctor if your incision/area has: Continuous Slow Oozing, Sudden Increased Bleeding, Increased Pain/ Swelling, Increased Redness and Foul Smelling Discharge Call your doctor if you observe: Fever of 101 or Higher Additional Dressing/Incision Instructions:: Keep the dressing (bandage) on until the next morning. You may then shower, but do not take a tub bath for 5 days after your test. It is normal to have some tenderness and discomfort at the puncture site. Sometimes bruising also occurs. However, if pain, numbness, or coldness occurs below the puncture site (in your leg, toes, arms or fingers) call your doctor at once. You may have a small, marble sized knot at the puncture site. This is normal. Do not rub it. It will go away in 4-6 weeks. Bleeding can occur from the area where the puncture was done. Blood may spurt or drip from the site. If blood spurts, apply pressure right away to stop bleeding and call 911. Although rare, bleeding into the tissue (hematoma) can also occur. If this happens, a large, firm area goose egg under the skin will appear. If any of these occur, lie down as flat as you can and have someone apply firm pressure to the cath site with a gauze pad or a clean washcloth for 10-15 minutes. Call 911 or go to the Emergency Department. Follow Up Care Please Follow Up With: Gaston Cantu MD When: My office will call you for follow-up appointment and set up to fix the other blood vessel Test Results: Test results from this visit will be discussed in further detail at your follow-up appointment, if applicable. Discharge Plan Admission Admit Date/Time: 02/25/25 11:10 Attending Provider: Gaston Cantu Primary Care Provider: Matthew Acosta Discharge Orders/Prescriptions Prescriptions: New clopidogrel 75 mg Tablet 75 mg PO DAILY Qty: 30 11RF nitroglycerin 0.4 mg Tablet, Sublingual 0.4 mg sublingual Q5M PRN (Reason: Cardiac/Chest Pain) Qty: 15 3RF metoprolol tartrate 25 mg Tablet 12.5 mg PO BID Qty: 60 6RF Continued pioglitazone 45 mg tablet 45 mg PO QDAY levothyroxine [Synthroid] 125 mcg tablet 125 mcg PO QDAY rosuvastatin 10 mg tablet 10 mg PO QDAY bupropion HCl [Wellbutrin XL] 150 mg tablet extended release 24 hr 150 mg PO QAM dapagliflozin propanediol [Farxiga] 10 mg tablet 10 mg PO QDAY prasterone (DHEA) 50 mg capsule 50 mg PO QDAY coenzyme Q10 [Co Q-10] 50 mg capsule 50 mg PO QDAY cholecalciferol (vitamin D3) 125 mcg (5,000 unit) capsule 125 mcg PO QDAY fenofibrate 160 mg tablet 160 mg PO QDAY mecobalamin (vitamin B12) 1,000 mcg tablet,chewable 1,000 mcg PO QDAY ferrous sulfate [Feosol] 325 mg (65 mg iron) tablet 325 mg PO BID aspirin [Adult Aspirin Regimen] 81 mg tablet,delayed release (DR/EC) 81 mg PO DAILY Qty: 90 3RF Held metformin 1,000 mg tablet 1,000 mg PO BID Hold Instructions: Resume on 03/01/25. Referrals / Follow Up: Matthew Acosta PA [Primary Care Provider, [facility]] Disposition Discharge Orders: Discharge Patient (Routine); Ordered 02/26/25 Ordered By: Dr. Migel Miguel 02/26/25 0820 Gaston Cantu MD CC: EUGENIO Lorenzana Signed Normal [facility] Erythrocyte distribution wid th ratioOrdered By: Migel Miguel on 02-26-2025 Erythrocyte distribution width (RBC) [Ratio] 13.6 % 11.6-14.6 [facility] Erythrocyte distribution wid th standard deviationOrdered By: Migel Miguel on 02-26-2025 Erythrocyte distribution width (RBC) [Ratio] 46.5 fl High 35.1-43.9 [facility] Glomerular filtration rate ( GFR) estimation/1.73 sq m using serum, plasma, or whole bOrdered By: Migel Miguel on 02-26-2025 GFR/1.73 sq M.predicted among non-blacks MDRD (S/P/Bld) [Vol rate/Area] 67 mL/min/{1.73_m2} >60 [facility] Comment on above: mL/min/1.73m2 CKD-EP I Creatinine Equation (2020) Hematocrit Auto (Bld) [Volum e fraction]Ordered By: Migel Miguel on 02-26-2025 Hematocrit (Bld) [Volume fraction] 38.3 % Low 40-54 [facility] Hemoglobin measurementOrdere d By: Migel Miguel on 02-26-2025 Hemoglobin (Bld) [Mass/Vol] 12.7 g/dL Low 13.0-16.5 [facility] Laboratory - Chemistry and C hemistry - challengeOrdered By: Migel Miguel on 02-26-2025 AST [Catalytic activity/Vol] 17 U/L <38 [facility] MCV (mean corpuscular volume ) determinationOrdered By: Migel Miguel on 02-26-2025 MCV (RBC) [Entitic vol] 93.0 fL 80-94 [facility] Mean corpuscular hemoglobin (MCH) determinationOrdered By: Migel Miguel on 02-26-2025 MCH (RBC) [Entitic mass] 30.8 pg 27.0-32.0 [facility] Mean corpuscular hemoglobin concentration (MCHC) determinationOrdered By: Migel Miguel on 02-26-2025 MCHC (RBC) [Mass/Vol] 33.2 g/dL 32-36 [facility] Mean platelet volume determi nationOrdered By: Migel Miguel on 02-26-2025 Platelet mean volume (Bld) [Entitic vol] 10.7 fL 6.2-12.0 [facility] Platelet countOrdered By: Eduard Miguel on 02-26-2025 Platelets (Bld) [#/Vol] 193 10*3/uL 150-450 [facility] Potassium measurement (mass/ volume)Ordered By: Migel Miguel on 02-26-2025 Potassium (Unsp spec) [Mass/Vol] 3.9 mmol/L 3.3-5.1 [facility] RBC Auto (Bld) [#/Vol]Ordere d By: Migel Miguel on 02-26-2025 RBC (Bld) [#/Vol] 4.12 10*6/uL Low 4.6-6.2 [facility] Serum creatinine measurement (mass/volume)Ordered By: Migel Miguel on 02-26-2025 Creatinine [Mass/Vol] 1.21 mg/dL High 0.70-1.20 [facility] Serum globulin measurementOr dered By: Migel Miguel on 02-26-2025 Globulin (S) [Mass/Vol] 2.7 g/dL 2.2-4.2 [facility] Serum glucose measurement (m ass/volume)Ordered By: Migel Miguel on 02-26-2025 Glucose [Mass/Vol] 178 mg/dL High 70-99 [facility] Serum or plasma alanine dennis otransferase (ALT) measurementOrdered By: Migel Miguel on 02-26-2025 ALT [Catalytic activity/Vol] 7 U/L <47 [facility] Serum or plasma albumin kena urement (mass/volume)Ordered By: Migel Miguel on 02-26-2025 Albumin [Mass/Vol] 3.6 g/dL 3.4-4.8 [facility] Serum or plasma albumin/glob ulin mass ratioOrdered By: Migel Miguel on 02-26-2025 Albumin/Globulin [Mass ratio] 1.3 {ratio} 0.9-2.4 [facility] Serum or plasma alkaline dariel sphatase measurementOrdered By: Migel Miguel on 02-26-2025 ALP [Catalytic activity/Vol] 44 U/L 40-129 [facility] Serum or plasma calcium kena urement (mass/volume)Ordered By: Migel Miguel on 02-26-2025 Calcium [Mass/Vol] 8.5 mg/dL 7.6-11.0 [facility] Serum or plasma urea nitroge n measurement (mass/volume)Ordered By: Migel Miguel on 02-26-2025 Urea nitrogen [Mass/Vol] 18 mg/dL 4-19 [facility] Sodium levelOrdered By: Chalo Miguel on 02-26-2025 Sodium [Moles/Vol] 137 mmol/L 133-145 [facility] Total proteinOrdered By: Melvin Miguel on 02-26-2025 Protein [Mass/Vol] 6.3 g/dL 5.9-8.4 [facility] White blood cell (WBC) count Ordered By: Migel Miguel on 02-26-2025 WBC (Bld) [#/Vol] 4.3 10*3/uL Low 4.4-11.0 [facility] 12 Lead EKGon 02-25-2025 12 Lead EKG [facility] Cardiovascular Services [address] [place] [address] 12 Lead EKG 02/25/25 1149 MR#: [id number] Acct: [id number] Name: ALEKSANDRA FINNEY #: [id number] : 1960 64 From: Gaston Cantu MD Attending Dr: Dr. Gaston Cantu MD Status: DIS I NO Ordering Dr: Migel Miguel MD Date: 02/25/25 Location: U Sex: M C Admitted: 02/25/25 Test Reason : POST PCI Blood Pressure : */* mmHG Vent. Rate : 59 BPM Atrial Rate : 59 BPM P-R Int : 154 ms QRS Dur : 80 ms QT Int : 422 ms P-R-T Axes : 53 23 18 degrees QTcB Int : 417 ms Sinus bradycardia Otherwise normal ECG When compared with ECG of 16-Feb-2025 13:11, No significant change was found Confirmed by PEPE BARRETO, GASTON ([id number]), publishing editor NATE HEARD ([id number]) on 02/28/2025 6:33:03 AM Referred By: Gaston Cantu Confirmed By: GASTON CANTU MD 02/28/25 0633 Date Gaston Cantu MD CC: EUGENIO Lorenzana; Dr. Migel Miguel MD; Dr. Gaston Cantu MD Signed Normal [facility] ACT Activated Clotting Timeo n 02-25-2025 ACTk CLOT TIME 225 sec High 74-137 [facility] Comment on above: Performed By: #### L 9100.0100 #### [facility] Laboratory [address] [place], [place], [id number] ACTk CLOT TIME 230 sec High 74-137 [facility] Comment on above: Performed By: #### L 9100.0100 #### [facility] Laboratory [address] [place], [address] Cardiac Cath Diagnosticon Cardiac Cath Diagnostic [facility] Imaging Services [address] [address] Cardiac Cath Diagnostic MR#: [id number] Acct: [id number] Name: ALEKSANDRA FINNEY Rep #: [id number] : 1960 64 From: Gaston Cantu MD PCP: EUGENIO Lorenzana Status:ADM SHANNAN Patient Name: ALEKSANDRA FINNEY Study Date: 02/25/2025 Performing: Gaston Cantu MD Ht: 66 inches 167.64 cm : 1960 Wt: 255.3 lbs 115.67 kg Age: 64 Gender: male BSA: 2.22 PROCEDURE(S) PERFORMED DC01-(77783)LHC/COR/LV IC11A-(63853)CORONARY INTRAVASCULAR LITHOTRIPSY IC12-(51866/C9600)CHRISTIE W/WO PTCA, SINGLE CORONARY ARTERY IC13-(92392/C9600)CHRISTIE W/WO PTCA, EACH ADD'L ART, SAME MAJOR CLINICAL PROFILE AND INDICATIONS Indications: Suspected CAD, Suspected CAD Heart Failure: None Stress/Imaging Coronary Calcium Score: Yes Calcium Score: 1411Calcium Score: 1411 CAD Presentations: No Sxs, no angina. No Sxs, no angina. CONCLUSIONS Severe two-vessel disease involving the LAD, diagonal, and proximal right coronary artery. RECOMMENDATIONS Consider staged PCI to the LAD and then later on to the RCA. DESCRIPTION OF PROCEDURE The patient arrived to the procedure lab. The risks and benefits of the procedure as well as a full description of our services here and current unavailability of surgical backup were fully explained to the patient and/or their significant other prior to the catheterization. The Timeout was completed, verifying the correct patient and procedure. The patient's procedural site was prepped and draped in the usual fashion. Local anesthetic was given subcutaneously to right radial region with Lidocaine 2%. Local anesthetic was given subcutaneously to right groin region with Lidocaine 2%. Using a modified Seldinger technique, arterial access was obtained via the right radial artery, a 6Fr sheath was inserted., arterial access was obtained via the right femoral artery, a 5Fr sheath was inserted. Left Coronary Artery selective angiography was performed in multiple views using a 5 Fr. 4.0 [place] catheter. Right Coronary Artery selective angiography was then performed in multiple views using a 6 Fr. JR 4 catheter. Left Coronary Artery selective angiography was performed in multiple views using a 5 Fr. JL 5 catheter. Left Ventriculography was performed in OCONNOR projection using a 5 Fr. Pigtail catheter. LV to AO pullback pressures were then recorded.The radial arterial sheath was pulled and a TR Band was applied for hemostasis. The arterial sheath was pulled and a Perclose closure device was deployed for hemostasis CORONARY ANGIOGRAPHY DOMINANCE: Right Dominant LEFT HEART ASSESSMENT Left Ventricular Ejection Fraction: by LV Gram 70 % Normal LV wall motion Normal Left Ventricular systolic function LEFT MAIN: Mild calcification, No significant disease noted LEFT ANTERIOR DESCENDING ARTERY: Medium size vessel with mild proximal calcification and significant stenosis approximate 80% approximately with a first diagonal vessel with 80% proximal stenosis and a second diagonal vessel with ostial 60% stenosis. CIRCUMFLEX ARTERY: Mild luminal irregularities RIGHT CORONARY ARTERY: Dominant vessel with mild calcification and proximal eccentric 70% stenosis. Mild diffuse distal disease present. AORTIC ROOT: Dilated COMPLICATIONS No Complications PROCEDURE MEDICATIONS Versed 1 mg IV Fentanyl 50 mcg IV Versed 1 mg IV Fentanyl 50 mcg IV Versed 1 mg IV Oxygen: 2 L/min via nasal cannula Brilinta 180 mg PO @ 02/25/2025 09:37:33 Heparin given IA 02/25/2025 08:38:10 Heparin 8000 unit(s) IV 02/25/2025 09:51:59 Heparin 3000 unit(s) IV 02/25/2025 10:04:55 Heparin 2000 unit(s) IV 02/25/2025 10:55:17 Nitro 200 mcg IC 02/25/2025 10:20:41 Verapamil 2.5mg, Ntg 200mcgs, 2000 units of Heparin given IA 02/25/2025 08:38:10 IV Bolus: .9 NaCl 500 ml total 02/25/2025 10:55:00 SUMMARY OF HEMODYNAMIC DATA Time AIR REST ECG 08:02:17 AO 87/56 (73) SA 08:41:28 AO 105/69 (86) 08:46:22 AO 112/67 (86) 09:12:52 LV 115/13, 25 09:21:18 LV 120/15, 28 09:21:25 LV 122/15, 25 09:21:54 LV 124/22, 32 09:22:40 LVp 131/20, 40 09:22:50 AOp 120/69 (90) 09:22:55 Signed By Gaston Cantu MD On 02/25/2025 17:49:41 Gaston Cantu MD 02/25/25 1750 Date Gaston Cantu MD Cosigner Signature: Date (if indicated) CC: EUGENIO Lorenzana; Dr. Gaston Cantu MD Date Dictated: 02/25/25836 Date Transcribed: 02/25/251748 Salary And Wage Administrator: [place] Signed Normal [facility] Cardiac Cath Interventionon 02-25-2025 Cardiac Cath Intervention [facility] Imaging Services [address] [place] [address] Cardiac Cath Intervention MR#: [id number] Acct: [id number] Name: ALEKSANDRA FINNEY Rep #: [id number] : 1960 64 From: Gaston Cantu MD PCP: EUGENIO Lorenzana Status:REG [facility] Patient Name: ALEKSANDRA FINNEY Study Date: 02/25/2025 Performing: Migel Miguel MD Ht: 66 inches 167.64 cm : 1960 Wt: 255.3 lbs 115.67 kg Age: 64 Gender: male BSA: 2.22 PROCEDURE(S) PERFORMED IC11A-(95109)CORONARY INTRAVASCULAR LITHOTRIPSY IC12-(26001/C9600)CHRISTIE W/WO PTCA, SINGLE CORONARY ARTERY IC13-(35510/C9600)CHRISTIE W/WO PTCA, EACH ADD'L ART, SAME MAJOR CLINICAL PROFILE AND CO-MORBIDITIES Indications: Suspected CAD Heart Failure: None Stress/Imaging Coronary Calcium Score: Yes Calcium Score: 1411 Calcium Score: 1411 CAD Presentations: No Sxs, no angina. CONCLUSIONS Successful IVL/PTCA/CHRISTIE Mid LAD using [place] 3.0x22 mm. Ostial D2 silated with 2.0 mm balloon Successful CHRISTIE Prox D1 using [place] 2.5x8 mm RECOMMENDATIONS ASA Indefinitley P2Y12 inhibitors for atleast 6 months Staged PCI to Prox RCA DESCRIPTION OF PROCEDURE The patient arrived to the procedure lab. The risks and benefits of the procedure as well as a full description of our services here and current unavailability of surgical backup were fully explained to the patient and/or their significant other prior to the catheterization. The Timeout was completed, verifying the correct patient and procedure. The patient's procedural site was prepped and draped in the usual fashion. Local anesthetic was given subcutaneously to right radial region with Lidocaine 2%. Local anesthetic was given subcutaneously to right groin region with Lidocaine 2% Using a modified Seldinger technique,arterial access was obtained via the right radial artery, a 6Fr sheath was inserted., arterial access was obtained via the right femoral artery, a 5Fr sheath was inserted. Left Coronary Artery selective angiography was performed in multiple views using a 5 Fr. 4.0 [place] catheter. Right Coronary Artery selective angiography was then performed in multiple views using a 6 Fr. JR 4 catheter. Left Coronary Artery selective angiography was performed in multiple views using a 5 Fr. JL 5 catheter. Left Ventriculography was performed in OCONNOR projection using a 5 Fr. Pigtail catheter. LV to AO pullback pressures were then recorded.The images were reviewed and options discussed. A decision was then made to proceed with an Intervention, IVUS or other adjunct procedure. XB 4 Guide catheter was inserted and engaged into the LCA. Runthrough Guide wire was advanced to the LAD. Runthrough (2) Guide wire was inserted as a roxana wire into the Diag 2 Emerge 2.50 x 12 Balloon catheter was inserted. Balloon catheter was advanced across lesion in the LAD, mid. PTCA balloon inflated at 8 atms for 12 secs. PTCA balloon inflated at 10 atms for 26 secs. Angiogram performed post balloon dilatation. Angiogram performed post balloon dilatation. [place] 3.0 x 22 Drug Eluting stent was inserted. Drug Eluting stent was advanced across the lesion in the LAD, mid. Angiogram performed pre stent deployment. NC Emerge 3.0 x 15 Balloon catheter was inserted. Balloon catheter was advanced across lesion in the LAD, mid. Angiogram performed post balloon dilatation. Guide wire was repositioned to the 1st Diagonal [place] 2.5 x 8 Drug Eluting stent was inserted. Drug Eluting stent was advanced across the lesion in the first diagonal, proximal. NC Emerge 2.5 x 8 Balloon catheter was inserted. Runthrough (2) Guide wire was reinserted as a roxana wire in the LAD NE Emerge 2.0 x 8 Balloon catheter was inserted. Balloon catheter was advanced across lesion in the LAD, mid. NC Emerge 3.0 x 15 Balloon catheter was inserted. Balloon catheter was advanced across lesion in the LAD, mid. NC Emerge 2.5 x 8 Balloon catheter was inserted. Balloon catheter was advanced across lesion in the first diagonal, proximal. The radial arterial sheath was pulled and a TR Band was applied for hemostasis. The arterial sheath was pulled and a Perclose closure device was deployed for hemostasis INTERVENTION INFORMATION LESION SITE: LAD (Mid) lesion length: 21 mm, Lesion Complexity: High/C Pre Stenosis: 95 % Pre intervention KERRIE flow: 3 PROCEDURE: Drug Eluting Stent with pre and post dilatation, Coronary Intravascular Lithotripsy - IVL Post Stenosis: 0 % Post intervention KERRIE flow: 3 Lesion Devices: Cordis 6 Fr XB4.0 100cm Guide Catheter Terumo .014 180cm Runthrough Extra Floppy straight Terumo .014 180cm Runthrough Extra Floppy straight [place] EMERGE MR 2.50x12 BALLOON Medtronic 3.0 x 22 CHARLIE FRONTIER CHRISTIE [employer] NC EMERGE MR 3.00x15 BALLOON Calos Sci NC EMERGE MR 2.00x08 BALLOON LESION SIT (more content not included)... Normal [facility] Discharge Instructionon 01-28 Discharge Instruction [facility] Medical Records Department [address] [place] [address] Instructions for Home/Discharge Instructions 02/25/25 1103 MR#: [id number] Acct: [id number] Name: ALEKSANDRA FINNEY Rep #: [id number] : 1960 64 From: Migel Miguel MD PCP: EUGENIO Lorenzana Status:REG SDC Discharge Instructions DC O2, CPAP, BIPAP needs Home O2 Discharge instructions: No Dressing / Incision May resume sexual activity in: 1-2 weeks Dressing / Incision Call your doctor if your incision/area has: Continuous Slow Oozing, Sudden Increased Bleeding, Increased Pain/ Swelling, Increased Redness and Foul Smelling Discharge Follow Up Care Please Follow Up With: Gaston Cantu MD When: 2-4 weeks Test Results: Test results from this visit will be discussed in further detail at your follow-up appointment, if applicable. Discharge Plan Admission Attending Provider: Gaston Cantu Primary Care Provider: Matthew Acosta Instructions Print Language: Romansh Discharge Orders/Prescriptions Prescriptions: New clopidogrel 75 mg Tablet 75 mg PO DAILY Qty: 30 11RF nitroglycerin 0.4 mg Tablet, Sublingual 0.4 mg sublingual Q5M PRN (Reason: Cardiac/Chest Pain) Qty: 15 3RF metoprolol tartrate 25 mg Tablet 12.5 mg PO BID Qty: 60 6RF Continued pioglitazone 45 mg tablet 45 mg PO QDAY levothyroxine [Synthroid] 125 mcg tablet 125 mcg PO QDAY rosuvastatin 10 mg tablet 10 mg PO QDAY bupropion HCl [Wellbutrin XL] 150 mg tablet extended release 24 hr 150 mg PO QAM dapagliflozin propanediol [Farxiga] 10 mg tablet 10 mg PO QDAY prasterone (DHEA) 50 mg capsule 50 mg PO QDAY coenzyme Q10 [Co Q-10] 50 mg capsule 50 mg PO QDAY cholecalciferol (vitamin D3) 125 mcg (5,000 unit) capsule 125 mcg PO QDAY fenofibrate 160 mg tablet 160 mg PO QDAY mecobalamin (vitamin B12) 1,000 mcg tablet,chewable 1,000 mcg PO QDAY ferrous sulfate [Feosol] 325 mg (65 mg iron) tablet 325 mg PO BID aspirin [Adult Aspirin Regimen] 81 mg tablet,delayed release (DR/EC) 81 mg PO DAILY Qty: 90 3RF Held metformin 1,000 mg tablet 1,000 mg PO BID Hold Instructions: Resume on 03/01/25. Referrals / Follow Up: Matthew Acosta PA [Primary Care Provider, Family Practice] Disposition Disposition (needs filled in before D/C Order can be placed): Home, Self Care 02/25/25 1107 Migel Miguel MD CC: EUGENIO Lorenzana Signed Normal [facility] ALBUMIN, RANDOM URINE W/CREA TININEon 02-22-2025 ALBUMIN, URINE 2.3 mg/dL Normal See Note: [facility] Comment on above: Result Comment: Refe rentaylor Range: Reference Range Not established Performed By: #### 4 96, 87743, 6399, 6517, 7600 #### [facility] [address], [address] [place] [address] Cosmetician Apprentice: Aamir Huerta MD ALBUMIN/CREATININE RATIO, RANDOM URINE 32 mg/g creat High <30 [facility] Comment on above: Result Comment: The ADA defines abnormalities in albumin excretion as follows: Albuminuria Category Result (mg/g creatinine) Normal to Mildly increased <30 Moderately increased 30-299 Severely increased > OR = 300 The ADA recommends that at least two of three specimens collected within a 3-6 month period be abnormal before considering a patient to be within a diagnostic category. Performed By: #### 4 96, 15339, 6399, 6517, 7600 #### [facility] [place] [address] Cosmetician Apprentice: Aamir Huerta MD Creatinine (U) [Mass/Vol] 72 mg/dL Normal 20-320 [facility] Comment on above: Performed By: #### 4 96, 66842, 63, 6517, 7600 #### [facility] [place] [address] Cosmetician Apprentice: Aamir Huerta MD CBC (INCLUDES DIFF/PLT)on Basophils (Bld) [#/Vol] 0.019 10*3/uL Normal 0-200 [facility] Comment on above: Performed By: #### 4 96, 54539, 6399, 6517, 7600 #### [facility] [place] [address] Cosmetician Apprentice: Aamir Huerta MD Basophils/100 WBC (Bld) 0.4 % Normal [facility] Comment on above: Performed By: #### 4 96, 44142, 6399, 6517, 7600 #### [facility] [address] Cosmetician Apprentice: Aamir Huerta MD Eosinophils (Bld) [#/Vol] 0.052 10*3/uL Normal 15-500 [facility] Comment on above: Performed By: #### 4 96, 58913, 6399, 6517, 7600 #### [facility] of [place] [address] Cosmetician Apprentice: Aamir Huerta MD Eosinophils/100 WBC (Bld) 1.1 % Normal [facility] Comment on above: Performed By: #### 4 96, 40497, 6399, 6517, 7600 #### [facility] [place] [address] Cosmetician Apprentice: Aamir Huerta MD Erythrocyte distribution width (RBC) [Ratio] 13.2 % Normal 11.0-15.0 [facility] Comment on above: Performed By: #### 4 96, 89252, 63, 6517, 7600 #### [facility] of [place] [address] Cosmetician Apprentice: Aamir Huerta MD Hematocrit (Bld) [Volume fraction] 44.6 % Normal 38.5-50.0 [facility] Comment on above: Performed By: #### 4 96, 41351, 6399, 6517, 7600 #### [facility] of [place] [address] Cosmetician Apprentice: Aamir Huerta MD Hemoglobin (Bld) [Mass/Vol] 14.7 g/dL Normal 13.2-17.1 [facility] Comment on above: Performed By: #### 4 96, 02785, 6399, 6517, 7600 #### [facility] [place] [address] Cosmetician Apprentice: Aamir Huerta MD Lymphocytes (Bld) [#/Vol] 0.912 10*3/uL Normal 850-3900 [facility] Comment on above: Performed By: #### 4 96, 15698, 6399, 6517, 7600 #### [facility] of [place] [address] Cosmetician Apprentice: Aamir Huerta MD Lymphocytes/100 WBC (Bld) 19.4 % Normal [facility] Comment on above: Performed By: #### 4 96, 97211, 6399, 6517, 7600 #### [facility] [place] [address] Cosmetician Apprentice: Aamir Huerta MD MCH (RBC) [Entitic mass] 31.2 pg Normal 27.0-33.0 [facility] Comment on above: Performed By: #### 4 96, 56166, 6399, 6517, 7600 #### [facility] [place] [address] Cosmetician Apprentice: Aamir Huerta MD MCHC (RBC) [Mass/Vol] 33.0 g/dL Normal 32.0-36.[address] [facility] Comment on above: Result Comment: For adults, a slight decrease in the calculated MCHC value (in the range of 30 to 32 g/dL) is most likely not clinically significant; however, it should be interpreted with caution in correlation with other red cell parameters and the patient's clinical condition. Performed By: #### 4 96, 81271, 63, 6517, 7600 #### [facility] [place] [address] Cosmetician Apprentice: Aamir Huerta MD MCV (RBC) [Entitic vol] 94.7 fL Normal 80.0-100.0 [facility] Comment on above: Performed By: #### 4 96, 97706, 6399, 6517, 7600 #### [facility] [place] [address] Cosmetician Apprentice: Aamir Huerta MD Monocytes (Bld) [#/Vol] 0.663 10*3/uL Normal 200-950 [facility] Comment on above: Performed By: #### 4 96, 87292, 6399, 6517, 7600 #### [facility] of [address] [address] Cosmetician Apprentice: Aamir Huerta MD Monocytes/100 WBC (Bld) 14.1 % Normal [facility] Comment on above: Performed By: #### 4 96, 32668, 6399, 6517, 7600 #### [facility] [place] [address] Cosmetician Apprentice: Aamir Huerta MD Neutrophils (Bld) [#/Vol] 3.055 10*3/uL Normal 0947-3164 [facility] Comment on above: Performed By: #### 4 96, 10265, 6399, 6517, 7600 #### [facility] [place] [address] Cosmetician Apprentice: Aamir Huerta MD Neutrophils/100 WBC (Bld) 65 % Normal [facility] Comment on above: Performed By: #### 4 96, 37107, 63, 6517, 7600 #### [facility] [place] [address] Cosmetician Apprentice: Aamir Huerta MD Platelet mean volume (Bld) [Entitic vol] 12.0 fL Normal 7.5-12.5 [facility] Comment on above: Performed By: #### 4 96, 37016, 6399, 6517, 7600 #### [facility] [place] [address] Cosmetician Apprentice: Aamir Huerta MD Platelets (Bld) [#/Vol] 187 10*3/uL Normal 140-400 [facility] Comment on above: Performed By: #### 4 96, 33306, 6399, 6517, 7600 #### [facility] [place] [address] Cosmetician Apprentice: Aamir Huerta MD RBC (Bld) [#/Vol] 4.71 10*6/uL Normal 4.20-5.80 [facility] Comment on above: Performed By: #### 4 96, 21903, 6399, 6517, 7600 #### [facility] [place] [address] Cosmetician Apprentice: Aamir Huerta MD WBC (Bld) [#/Vol] 4.7 10*3/uL Normal 3.8-10.8 [facility] Comment on above: Performed By: #### 4 96, 81860, 6399, 6517, 7600 #### [facility] [place] [address] Cosmetician Apprentice: Aamir Huetra MD [facility] 02-22-2025 Albumin [Mass/Vol] 4.4 g/dL Normal 3.6-5.1 [facility] Comment on above: Performed By: #### 4 96, 76382, 6399, 6517, 7600 #### [facility] [place] [address] Cosmetician Apprentice: Aamir Huerta MD Albumin/Globulin [Mass ratio] 1.6 {ratio} Normal 1.0-2.5 [facility] Comment on above: Performed By: #### 4 96, 65777, 6399, 6517, 7600 #### [facility] [place] [address] Cosmetician Apprentice: Aamir Huerta MD ALP [Catalytic activity/Vol] 53 U/L Normal 35-144 [facility] Comment on above: Performed By: #### 4 96, 84866, 6399, 6517, 7600 #### [facility] [place] [address] Cosmetician Apprentice: Aamir Huerta MD ALT [Catalytic activity/Vol] 10 U/L Normal 9-46 [facility] Comment on above: Performed By: #### 4 96, 64854, 6399, 6517, 7600 #### [facility] [place] [address] Cosmetician Apprentice: Aamir Huerta MD AST [Catalytic activity/Vol] 14 U/L Normal 10-35 [facility] Comment on above: Performed By: #### 4 96, 61130, 6399, 6517, 7600 #### [facility] of [address], [address] [place] [address] Cosmetician Apprentice: Aamir Huerta MD Bilirubin [Mass/Vol] 0.6 mg/dL Normal 0.2-1.2 [facility] Comment on above: Performed By: #### 4 96, 09981, 6399, 6517, 7600 #### [facility] of [address], [address] [place] [address] Cosmetician Apprentice: Aamir Huerta MD BUN/CREATININE RATIO SEE NOTE: Normal 6-22 [facility] Comment on above: Result Comment: Not Reported: BUN and Creatinine are within reference range. Performed By: #### 4 96, 58241, 6399, 6517, 7600 #### [facility] [place] [address] Cosmetician Apprentice: Aamir Huerta MD Calcium [Mass/Vol] 9.5 mg/dL Normal 8.6-10.3 [facility] Comment on above: Performed By: #### 4 96, 59225, 6399, 6517, 7600 #### [facility] [place] [address] Cosmetician Apprentice: Aamir Huerta MD Chloride [Moles/Vol] 102 mmol/L Normal 98-110 [facility] Comment on above: Performed By: #### 4 96, 46814, 6399, 6517, 7600 #### [facility] [place] [address] Cosmetician Apprentice: Aamir Huerta MD CO2 [Moles/Vol] 25 mmol/L Normal 20-32 [facility] Comment on above: Performed By: #### 4 96, 39798, 6399, 6517, 7600 #### [facility] of [place] [address] Cosmetician Apprentice: Aamir Huerta MD Creatinine [Mass/Vol] 1.29 mg/dL Normal 0.70-1.[address] [facility] Comment on above: Performed By: #### 4 96, 46212, 63, 6517, 7600 #### [facility] [place] [address] Cosmetician Apprentice: Aamir Huerta MD GFR/1.73 sq M.predicted among non-blacks MDRD (S/P/Bld) [Vol rate/Area] 62 mL/min/{1.73_m2} Normal > OR = 60 [facility] Comment on above: Performed By: #### 4 96, 37093, 63, 6517, 7600 #### [facility] [place] [address] Cosmetician Apprentice: Aamir Huerta MD Globulin (S) [Mass/Vol] 2.8 g/dL Normal 1.9-3.7 [facility] Comment on above: Performed By: #### 4 96, 12373, 63, 6517, 7600 #### [facility] [place] [address] Cosmetician Apprentice: Aamir Huerta MD Glucose [Mass/Vol] 154 mg/dL High 65-99 [facility] Comment on above: Result Comment: Fasting reference interval For someone without known diabetes, a glucose value >125 mg/dL indicates that they may have diabetes and this should be confirmed with a follow-up test. Performed By: #### 4 96, 67831, 63, 6517, 7600 #### [facility] [place] [address] Cosmetician Apprentice: Aamir Huerta MD Potassium [Moles/Vol] 4.2 mmol/L Normal 3.5-5.[address] [facility] Comment on above: Performed By: #### 4 96, 33957, 6399, 6517, 7600 #### [facility] [place] [address] Cosmetician Apprentice: Aamir Huerta MD Protein [Mass/Vol] 7.2 g/dL Normal 6.1-8.1 [facility] Comment on above: Performed By: #### 4 96, 41768, 6399, 6517, 7600 #### [facility] [address], [address] [place] [address] Cosmetician Apprentice: Aamir Huerta MD Sodium [Moles/Vol] 135 mmol/L Normal 135-146 [facility] Comment on above: Performed By: #### 4 96, 61050, 6399, 6517, 7600 #### [facility] [place] [address] Cosmetician Apprentice: Aamir Huerta MD Urea nitrogen [Mass/Vol] 17 mg/dL Normal 7-25 [facility] Comment on above: Performed By: #### 4 96, 81013, 6399, 6517, 7600 #### [facility] [place] [address] Cosmetician Apprentice: Aamir Huerta MD LIPID PANEL, [place] [address] Cholesterol [Mass/Vol] 136 mg/dL Normal <200 [facility] Comment on above: Order Comment: FASTI NG:YESFASTING: YES Performed By: #### 4 96, 05195, 6399, 6517, 7600 #### [facility] [place] [address] Cosmetician Apprentice: Aamir Huerta MD Cholesterol in HDL [Mass/Vol] 47 mg/dL Normal > OR = 40 [facility] Comment on above: Order Comment: FASTI NG:YESFASTING: YES Performed By: #### 4 96, 65808, 6399, 6517, 7600 #### [facility] [place] [address] Cosmetician Apprentice: Aamir Huerta MD Cholesterol in LDL [Mass/Vol] 65 mg/dL Normal [facility] Comment on above: Order Comment: FASTI NG:YESFASTING: YES Result Comment: Refe rence range: <100 Desirable range <100 mg/dL for primary prevention; <70 mg/dL for patients with CHD or diabetic patients with > or = 2 CHD risk factors. LDL-C is now calculated using the Anton-Barroso calculation, which is a validated novel method providing better accuracy than the Friedewald equation in the estimation of LDL-C. Anton NORWOOD et al. JORGE A. 2013;310(19): 5616-8569 (http://education.Needl/faq/HJP061) Performed By: #### 4 96, 23529, 6399, 6517, 7600 #### [facility] [address], [address] [place] [address] Cosmetician Apprentice: Aamir Huerta MD Cholesterol.total/Ashley sterol in HDL [Mass ratio] 2.9 {ratio} Normal <5.0 [facility] Comment on above: Order Comment: FASTI NG:YESFASTING: YES Performed By: #### 4 96, 94833, 6399, 6517, 7600 #### [facility] [address], [address] [place] [address] Cosmetician Apprentice: Aamir Huerta MD NON HDL CHOLESTEROL 89 mg/dL (calc) Normal <130 [facility] Comment on above: Order Comment: FASTI NG:YESFASTING: YES Result Comment: For patients with diabetes plus 1 major ASCVD risk factor, treating to a non-HDL-C goal of <100 mg/dL (LDL-C of <70 mg/dL) is considered a therapeutic option. Performed By: #### 4 96, 17994, 6399, 6517, 7600 #### [facility] [place] [address] Cosmetician Apprentice: Aamir Huerta MD Triglyceride [Mass/Vol] 160 mg/dL High <150 [facility] Comment on above: Order Comment: FASTI NG:YESFASTING: YES Performed By: #### 4 96, 32152, 6399, 6517, 7600 #### [facility] [place] [address] Cosmetician Apprentice: Aamir Huerta MD PSA, TOTALon 02-22-2025 PSA, TOTAL 0.45 ng/mL Normal < OR = 4.00 [facility] Comment on above: Result Comment: The total PSA value from this assay system is standardized against the WHO standard. The test result will be approximately 20% lower when compared to the equimolar-standardized total PSA (Isabel Gayatri). Comparison of serial PSA results should be interpreted with this fact in mind. This test was performed using the Siemens chemiluminescent method. Values obtained from different assay methods cannot be used interchangeably. PSA levels, regardless of value, should not be interpreted as absolute evidence of the presence or absence of disease. Performed By: #### 4 96, 86357, 6399, 6517, 7600 #### [facility] [address], [address] [place] [address] Cosmetician Apprentice: Aamir Huerta MD TEST AUTHORIZATIONon 02-22-2 025 CLIENT CONTACT: Normal [facility] Comment on above: Performed By: #### 4 96, 07544, 6399, 6517, 7600 #### [facility] [address], [address] [place] [address] Cosmetician Apprentice: Aamir Huerta MD COMMENT Normal [facility] Comment on above: Result Comment: Plea se have the ordering physician or his or her authorized customer engagement representative sign a copy of this report and promptly return it by faxing it to: [phone] or by returning the form to your membership assistant. Performed By: #### 4 96, 06391, 6399, 6517, 7600 #### [facility] [address], [address] [place] [address] Cosmetician Apprentice: Aamir Huerta MD REPORT ALWAYS MESSAGE SIGNATURE Normal [facility] Comment on above: Result Comment: The laboratory testing on this patient was verbally requested or confirmed by the ordering physician or his or her authorized customer engagement representative after contact with an employee of [facility]. Federal regulations require that we maintain on file written authorization for all laboratory testing. Accordingly we are asking that the ordering physician or his or her authorized customer engagement representative sign a copy of this report and promptly return it to the chief client officer. Signature: Performed By: #### 4 96, 93601, 6399, 6517, 7600 #### [facility] [address], [address] [place] [address] Cosmetician Apprentice: Aamir Huerta MD TEST CODE: 6399 Normal [facility] Comment on above: Performed By: #### 4 96, 19268, 6399, 6517, 7600 #### [facility] [address], [address] [place], [place] [address] Cosmetician Apprentice: Aamir Huerta MD TEST NAME: CBC Normal [facility] Comment on above: Performed By: #### 4 96, 70257, 6399, 6517, 7600 #### [facility] [address], [address] [place] [address] Cosmetician Apprentice: Aamir Huerta MD Absolute lymphocyte countOrd ered By: Gaston Cantu on 02-16-2025 Lymphocytes Auto (Unsp spec) [#/Vol] 1.25 10*3/uL 0.83-4.51 [facility] Absolute neutrophil countOrd ered By: Gaston Cantu on 02-16-2025 Neutrophils (Bld) [#/Vol] 2.8 10*3/uL 2.0-7.7 [facility] Automated lymphocyte count a s percentage of total leukocytesOrdered By: Gaston Cantu on 02-16-2025 Lymphocytes/100 WBC Auto (Unsp spec) 27.1 % 19-41 [facility] Basic Metabolic Profile (BMP )on 02-16-2025 BUN/CRE 16.1 RATIO Normal 10-20 [facility] Comment on above: Performed By: #### L 500.2500, L100.0100 #### [facility] [address] [place], [address] Calcium [Mass/Vol] 9.4 mg/dL Normal 7.6-11.0 [facility] Comment on above: Performed By: #### L 500.2500, L100.0100 #### [facility] [address] [place], [address] Chloride [Moles/Vol] 102 mmol/L Normal 98-108 [facility] Comment on above: Performed By: #### L 500.2500, L100.0100 #### [facility] [address] [place], [address] CO2 [Moles/Vol] 25.3 mmol/L Normal 21.0-32.0 [facility] Comment on above: Performed By: #### L 500.2500, L100.0100 #### [facility] [address] [place], [address] Creatinine [Mass/Vol] 1.39 mg/dL High 0.70-1.20 [facility] Comment on above: Performed By: #### L 500.2500, L100.0100 #### [facility] [address] [place], [address] GAP 11 Normal 5-15 [facility] Comment on above: Performed By: #### L 500.2500, L100.0100 #### [facility] [address] [place], [address] GFR/1.73 sq M.predicted among non-blacks MDRD (S/P/Bld) [Vol rate/Area] 57 mL/min/{1.73_m2} Low >60 [facility] Comment on above: Result Comment: mL/m in/1.73m2 CKD-EPI Creatinine Equation (2020) Performed By: #### L 500.2500, L100.0100 #### [facility] [address] [place], [address] Glucose [Mass/Vol] 136 mg/dL High 70-99 [facility] Comment on above: Performed By: #### L 500.2500, L100.0100 #### [facility] [address] [place], [address] Potassium [Moles/Vol] 4.6 mmol/L Normal 3.3-5.1 [facility] Comment on above: Performed By: #### L 500.2500, L100.0100 #### [facility] [address] [place], [address] Sodium [Moles/Vol] 138 mmol/L Normal 133-145 [facility] Comment on above: Performed By: #### L 500.2500, L100.0100 #### [facility] [address] [place], [address] Urea nitrogen [Mass/Vol] 22 mg/dL High 4-19 [facility] Comment on above: Performed By: #### L 500.2500, L100.0100 #### [facility] [address] [place], [address] Basophil percentageOrdered B y: Gaston Pepe on 02-16-2025 Basophils/100 WBC (Bld) 0.4 % 0-1 [facility] CBC W/Diff, Automatedon 01-27 Absolute Lymph 1.25 X10 3/uL Normal 0.83-4.51 [facility] Comment on above: Performed By: #### L 500.2500, L100.0100 #### [facility] [address] [place], [address] Absolute Neut 2.8 X10 3/uL Normal 2.0-7.7 [facility] Comment on above: Performed By: #### L 500.2500, L100.0100 #### [facility] [address] [place], [address] Basophils/100 WBC (Bld) 0.4 % Normal 0-1 [facility] Comment on above: Performed By: #### L 500.2500, L100.0100 #### [facility] [address] [place], [address] Eosinophils/100 WBC (Bld) 2.4 % Normal 0-5 [facility] Comment on above: Performed By: #### L 500.2500, L100.0100 #### [facility] [address] [place], [address] Erythrocyte distribution width (RBC) [Ratio] 13.5 % Normal 11.6-14.6 [facility] Comment on above: Performed By: #### L 500.2500, L100.0100 #### [facility] [address] [place], [address] Hematocrit (Bld) [Volume fraction] 42.1 % Normal 40-54 [facility] Comment on above: Performed By: #### L 500.2500, L100.0100 #### [facility] [address] [place], [address] Hemoglobin (Bld) [Mass/Vol] 13.8 g/dL Normal 13.0-16.5 [facility] Comment on above: Performed By: #### L 500.2500, L100.0100 #### [facility] [address] [place], [address] IG% 0.400 Normal 0.0-0.9 [facility] Comment on above: Result Comment: IG% - Immature Granulocytes (promyelocytes, myelocytes and metamyelocytes) > 1% indicates that a LEFT SHIFT is Present. Performed By: #### L 500.2500, L100.0100 #### [facility] [address] [place], [address] Lymphocytes/100 WBC (Bld) 27.1 % Normal 19-41 [facility] Comment on above: Performed By: #### L 500.2500, L100.0100 #### [facility] [address] [place], [address] MCH (RBC) [Entitic mass] 30.9 pg Normal 27.0-32.0 [facility] Comment on above: Performed By: #### L 500.2500, L100.0100 #### [facility] [address] [place], [address] MCHC (RBC) [Mass/Vol] 32.8 g/dL Normal 32-36 [facility] Comment on above: Performed By: #### L 500.2500, L100.0100 #### [facility] [address] [place], [address] MCV (RBC) [Entitic vol] 94.4 fL High 80-94 [facility] Comment on above: Performed By: #### L 500.2500, L100.0100 #### [facility] [address] [place], [address] Monocytes/100 WBC (Bld) 10.0 % Normal 0-10 [facility] Comment on above: Performed By: #### L 500.2500, L100.0100 #### [facility] [address] [place], [address] Neutrophils/100 WBC (Bld) 59.7 % Normal 47-70 [facility] Comment on above: Performed By: #### L 500.2500, L100.0100 #### [facility] [address] [place], [address] Nucleated RBC (Bld) [#/Vol] 0 10*3/uL Normal 0-5 [facility] Comment on above: Performed By: #### L 500.2500, L100.0100 #### [facility] [address] [place], [address] Platelet mean volume (Bld) [Entitic vol] 11.4 fL Normal 6.2-12.0 [facility] Comment on above: Performed By: #### L 500.2500, L100.0100 #### [facility] [address] [place], [address] Platelets (Bld) [#/Vol] 209 10*3/uL Normal 150-450 [facility] Comment on above: Performed By: #### L 500.2500, L100.0100 #### [facility] [address] [place], [address] RBC (Bld) [#/Vol] 4.46 10*6/uL Low 4.6-6.2 [facility] Comment on above: Performed By: #### L 500.2500, L100.0100 #### [facility] [address] [place], [address] RDW SD 47.3 fl High 35.1-43.9 [facility] Comment on above: Performed By: #### L 500.2500, L100.0100 #### [facility] [address] [place], [address] WBC (Bld) [#/Vol] 4.6 10*3/uL Normal 4.4-11.0 [facility] Comment on above: Performed By: #### L 500.2500, L100.0100 #### [facility] [address] [place], [address] Cardiology Visit Reporton Cardiology Visit Report [facility] [address] [place], [place] [address] OFFICE VISIT Date of Service: 02/16/25 MR#: [id number] Acct: [id number] Name: ALEKSANDRA FINNEY Rep #: [id number] : 1960 Provider: Dr. Gaston Cantu MD Age/Sex: 64/M [place] [facility] [place] Signed HPI HPI History of Present Illness Details: The patient is a 64-year-old male with a history of diabetes mellitus and hypercholesterolemia, presenting for evaluation of elevated coronary artery calcium (CAC) score. The patient reports no current symptoms, including chest pain, dyspnea, or dizziness. He underwent a CT scan, which revealed a total CAC score of 1,411, indicating more calcium than 90% of individuals his age. He has also lost 5 of his friends recently from heart disease. He has a significant family history of cardiovascular disease. Among his siblings, one of heart failure, another has undergone double bypass surgery and heart valve replacement, a third has had stents placed, and a fourth recently experienced a mild stroke. He denies chest pain he has had occasional palpitations he does not have any shortness of breath and no pedal edema. He works actively in the [employer]. His physical exam is unremarkable his electrocardiogram demonstrates sinus rhythm with a rate of 64 bpm. He is currently on treatment for diabetes and hypercholesterolemia. Intake Vital Signs 02/16/25 13:08 Height 5 ft 6 in Weight: 255 lb BMI 41.1 BP 119/76 Blood Pressure Location Lt brachial Position Sitting Respiration 16 Pulse 64 Pulse Source Monitor Intake Visit Reasons: ABN CCTA (SELF) Train Gate Attendant Required: No Accompanied by: Significant Other Is patient in pain?: No Allergies No Known Allergies Allergy (Verified 02/16/25 13:02) Medications ???Medication ???Instructions ???Recorded ???Confirmed ???Type bupropion HCl 150 mg 24 hr tablet, 150 mg PO QAM 01/31/25 02/16/25 History extended release (Wellbutrin XL) cholecalciferol (vitamin D3) 125 125 mcg PO QDAY 01/31/25 History mcg (5,000 unit) capsule coenzyme Q10 50 mg capsule (Co 50 mg PO QDAY 01/31/25 02/16/25 Hi story Q-10) dapagliflozin propanediol 10 mg 10 mg PO QDAY 01/31/25 02/16/25 Hi story tablet (Farxiga) fenofibrate 160 mg tablet 160 mg PO QDAY 01/31/25 02/16/25 H istory levothyroxine 125 mcg tablet 125 mcg PO QDAY 01/31/25 02/16/25 History (Synthroid) mecobalamin (vitamin B12) 1,000 1,000 mcg PO QDAY 01/31/25 5 History mcg chewable tablet metformin 1,000 mg tablet 1,000 mg PO BID 01/31/25 02/16/25 History pioglitazone 45 mg tablet 45 mg PO QDAY 01/31/25 02/16/25 Hi story prasterone (DHEA) 50 mg capsule 50 mg PO QDAY 01/31/25 02/16/25 Hi story rosuvastatin 10 mg tablet 10 mg PO QDAY 01/31/25 02/16/25 Hi story aspirin 81 mg tablet,delayed 81 mg PO DAILY #90 tabs 02/16/25 1 Rx release (Adult Aspirin Regimen) ferrous sulfate 325 mg (65 mg 325 mg PO BID 02/16/25 02/16/25 Hi story iron) tablet (Feosol) [facility] Medical History Depression GERD (gastroesophageal reflux disease) Hypothyroidism Hyperlipidemia Type 2 diabetes mellitus with other specified complication SOB (shortness of breath) Family history of heart disease Chest pain Surgical History No history of previous surgery Family History Brother CHF (congestive heart failure) Brother Myocardial infarction [place] x2 and many stents Brother S/P CABG x 2 Sister CVA (cerebral vascular accident) Social History Smoking Status: Never smoker alcohol intake: never substance use type: does not use ROS Const Const: Positive for fatigue; Negative for weakness, daytime sleepiness or difficulty sleeping ENT ENT: Negative for dizziness or Nosebleed/epistaxis Cardio Chest Pain: No Palpitations: Yes (fluttering ) Edema: None Resp Respiratory: Negative for SOB with activity, SOB at rest, SOB orthopnea SOB lying down or Cough GI GI: Positive for heartburn; Negative nausea or vomiting Neuro Neuro: Negative for dizziness, lightheadedness, near syncope or weakness Endo Endo: Positive for fatigue Cardiology Exam Const Appearance: cooperative, healthy appearing, no acute distress, well developed and well groomed Nutritional Appearance: average body habitus and well nourished Orientation: alert, awake and oriented x3 Head Head: normal to inspection, normocephalic and atraumatic Ears: hearing grossly normal bilaterally and external ears normal Nose: external nose normal, nare (more content not included)... Normal [facility] Eosinophil percentageOrdered By: Gaston Cantu on 02-16-2025 Eosinophils/100 WBC (Bld) 2.4 % 0-5 [facility] Immature granulocytes/100 WB C Auto (Bld)Ordered By: Gaston Cantu on 02-16-2025 Immature granulocytes/100 WBC (Bld) 0.400 % 0.0-0.9 [facility] Comment on above: IG% - Immature Granu locytes (promyelocytes, myelocytes and metamyelocytes) > 1% indicates that a LEFT SHIFT is Present. Monocyte percentageOrdered B y: Gaston Pepe on 02-16-2025 Monocytes/100 WBC (Bld) 10.0 % 0-10 [facility] Neutrophil percentageOrdered By: Gaston Pepe on 02-16-2025 Neutrophils/100 WBC (Bld) 59.7 % 47-70 [facility] Nucleated red blood cell per centageOrdered By: [place] Pepe on 02-16-2025 Nucleated RBC/100 WBC (Bld) [Ratio] 0 % 0-5 [facility] Coronary Angiography CTon Coronary Angiography CT [facility] [address] [place] [address] 01/24/25 1838 MR#: [id number] Acct: [id number] Name: ALEKSANDRA FINNEY Rep #: [id number] : 1960 64 From: Gaston Cantu MD PCP: EUGENIO Lorenzana Status:REG REF Y Location: CT Calcium Scoring Date of Study:: 01/24/25 Indications Indications: Coronary Calcium Scoring: High-resolution Computed Tomographic imaging of the chest was performed on [01/24/25 ], with particular attention paid to the coronary arteries. Images from the examination were analyzed for the presence and extent of coronary artery calcification , using coronary calcium quantification software. The patient tolerated the procedure well and there were no complications. The results of the coronary calcification analysis are provided below. Findings Coronary Artery Left Main (LM): 263 Left Anterior Descending (LAD): 550 Left Circumflex (LCX): 0 Right Coronary Artery (RCA): 598 Total Agatston Score: 1,411 Percentile Rankinth Calcium Scoring Interpretation: Different methods to categorize the overall amount of coronary plaque. Overall amount CAC SIS Visual of coronary plaque P1 Mild -100 <2 1-2 vessels with mild amount of plaque P2 Moderate 101-300 3-4 1-2 vessels with moderate amount, 3 vessels with mild amount of plaque P3 Severe 301-999 5-7 3 vessels with moderate amount, 1 vessel with severe amount of plaque P4 Extensive >1000 >8 2-3 vessels with severe amount of plaque Calcium Score: Extensive: 2-3 vessels w/severe amount of plaque Conclusion: Extensive two-vessel atherosclerotic plaquing including the distal left main. 01/24/25 1840 Date Gaston Cantu MD Cosigner Signature (if applicable): Date CC: EUGENIO Lorenzana; Dr. Gaston Cantu MD Signed Normal [facility] Limited Chest CT Cardiac Onl yon 01-24-[address] Cardiac Only [facility] [address] [place] [id number] Cardiac Only MR#: [id number] Acct: [id number] Name: ALEKSANDRA FINNEY Rep #: [id number] : 1960 M 64 From: [place] PCP: EUGENIO Lorenzana Status: REG REF Study: Limited Chest CT Cardiac Only Date of Exam: Exam# [id number] Ordering Dr: Matthew Acosta PROCEDURE: LIMITED CHEST CT CARDIAC ONLY 01/24/2025 REASON FOR EXAM: TYPE 2 DIABETES, HYPOTHYROIDISM TECHNIQUE: Procedure Code: CTCCTACHLIM Modality: CT Procedure: LIMITED CHEST CT CARDIAC ONLY One or more dose reduction techniques were used (e.g., Automated exposure control, adjustment of the mA and/or kV according to patient size, use of iterative reconstruction technique). RADIATION DOSE SUMMARY: CTDlvol: 12.19 mGy DLP: 195.04 mGycm COMPARISON: None. CT/Limited Chest CT Cardiac Only IMPRESSION: A small hiatal hernia is seen. Limited imaging of the lungs demonstrates no acute process. No pleural effusion or pneumothorax is seen in visualized areas. No adenopathy is noted. The visualized upper abdomen demonstrates no significant abnormality. 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: Signed Normal [facility] ALBUMIN, RANDOM URINE W/CREA SYLVIEon 01-05-2025 ALBUMIN, URINE 1.4 mg/dL Normal See Note: [facility] Comment on above: Order Comment: FASTI NG:YES FASTING: YES Result Comment: Refe rence Range: Reference Range Not established Performed By: #### 6 517, 6399, 1005, 496, 899, 14251 #### [facility] [address], [address] [place], [place] [address] Cosmetician Apprentice: Aamir Huerta MD #### 5224 #### [facility]/[place] [id number] [facility] [address] [place] Cosmetician Apprentice: Jasvir Lundberg M.D.,PhD ALBUMIN/CREATININE RATIO, RANDOM URINE 17 mg/g creat Normal <30 [facility] Comment on above: Order Comment: FASTI NG:YES FASTING: YES Result Comment: The ADA defines abnormalities in albumin excretion as follows: Albuminuria Category Result (mg/g creatinine) Normal to Mildly increased <30 Moderately increased 30-299 Severely increased > OR = 300 The ADA recommends that at least two of three specimens collected within a 3-6 month period be abnormal before considering a patient to be within a diagnostic category. Performed By: #### 6 517, 6399, 1005, 496, 899, 50710 #### [facility] [address], [address] [place], [place] [address] Cosmetician Apprentice: Aamir Huerta MD #### 5224 #### [facility]/[place] [id number] [facility] [address] [place] Cosmetician Apprentice: Jasvir Lundberg M.D.,PhD Creatinine (U) [Mass/Vol] 82 mg/dL Normal 20-320 [facility] Comment on above: Order Comment: FASTI NG:YES FASTING: YES Performed By: #### 6 517, 6399, 1005, 496, 899, 42770 #### [facility] [address], [address] [place] [address] Cosmetician Apprentice: Aamir Huerta MD #### 5224 #### [facility]/[place] [address] [facility] [address] [place] Cosmetician Apprentice: Jasvir Lundberg M.D.,PhD APOLIPOPROTEIN Bon Apolipoprotein B [Mass/Vol] 77 mg/dL Normal <90 [facility] Comment on above: Result Comment: Reference Range: <90 Risk Category: Optimal <90 Moderate 90-129 High > or = 130 A desirable treatment target may be <80 mg/dL or lower depending on the risk category of the patient including patients on lipid lowering therapies, patients with ASCVD, diabetes with >1 risk factors, Stage 3 or greater CKD with albuminuria, or heterozygous familial hypercholesterolemia. ApoB relative risk category cut points are based AACE/ASHIA and ACC/AHA recommendations. (Iris SM, et al. 2019.doi:10.1016/j.jacc.2018.11.002; Berenice Y, et al. 2020. doi:10.[facility]8/BT-[id number]). Performed By: #### 4 96, 95895, 6399, 6517, 7600 #### [facility] [address], [address] [place] [address] Cosmetician Apprentice: Aamir Huerta MD CBC (INCLUDES DIFF/PLT)on Basophils (Bld) [#/Vol] 0.01 10*3/uL Normal 0-200 [facility] Comment on above: Performed By: #### 6 517, 6399, 1005, 496, 899, 23896 #### [facility] [address], [address] [place] [address] Cosmetician Apprentice: Aamir Huerta MD #### 5224 #### [facility] [address] [facility] [address] [place] Cosmetician Apprentice: Jasvir Lundberg M.D.,PhD Basophils/100 WBC (Bld) 0.2 % Normal [facility] Comment on above: Performed By: #### 6 517, 6399, 1005, 496, 899, 61665 #### [facility] of [address], [address] [place], [place] [id number] Cosmetician Apprentice: Aamir Huerta MD #### 5224 #### [facility]/[address] [place], [place] Cosmetician Apprentice: Jasvir Lundberg M.D.,PhD Eosinophils (Bld) [#/Vol] 0.078 10*3/uL Normal 15-500 [facility] Comment on above: Performed By: #### 6 517, 6399, 1005, 496, 899, 70961 #### [facility] of [address], [address] [place] [address] Cosmetician Apprentice: Aamir Huerta MD #### 5224 #### [facility]/[address] [place], [place] Cosmetician Apprentice: Jasvir Lundberg M.D.,PhD Eosinophils/100 WBC (Bld) 1.5 % Normal [facility] Comment on above: Performed By: #### 6 517, 6399, 1005, 496, 899, 85998 #### [facility] of [address], [address] [place], [place] [address] Cosmetician Apprentice: Aamir Huerta MD #### 5224 #### [facility]/[address] [place], [place] Cosmetician Apprentice: Jasvir Lundberg M.D.,PhD Erythrocyte distribution width (RBC) [Ratio] 14.4 % Normal 11.0-15.0 [facility] Comment on above: Performed By: #### 6 517, 6399, 1005, 496, 899, 01590 #### [facility] of [address], [address] Cosmetician Apprentice: Aamir Huerta MD #### 5224 #### [facility]/[place] [id number] [facility] [place], [place] Cosmetician Apprentice: Jasvir Lundberg M.D.,PhD Hematocrit (Bld) [Volume fraction] 42.8 % Normal 38.5-50.0 [facility] Comment on above: Performed By: #### 6 517, 6399, 1005, 496, 899, 08815 #### [facility] of [address], [address] [place] [address] Cosmetician Apprentice: Aamir Huerta MD #### 5224 #### [facility] [place], [place] Cosmetician Apprentice: Jasvir Lundberg M.D.,PhD Hemoglobin (Bld) [Mass/Vol] 14.0 g/dL Normal 13.2-17.1 [facility] Comment on above: Performed By: #### 6 517, 6399, 1005, 496, 899, 79154 #### [facility] of [address], [address] [place], [place] [address] Cosmetician Apprentice: Aamir Huerta MD #### 5224 #### [facility] [place] Cosmetician Apprentice: Jasvir Lundberg M.D.,PhD Lymphocytes (Bld) [#/Vol] 1.196 10*3/uL Normal 850-3900 [facility] Comment on above: Performed By: #### 6 517, 6399, 1005, 496, 899, 67107 #### [facility] of [address], [address] [place] [address] Cosmetician Apprentice: Aamir Huerta MD #### 5224 #### [facility]/[place] [id number] [facility] [address] [place] Cosmetician Apprentice: Jasvir Lundberg M.D.,PhD Lymphocytes/100 WBC (Bld) 23.0 % Normal [facility] Comment on above: Performed By: #### 6 517, 6399, 1005, 496, 899, 58198 #### [facility] [place] [id number] Cosmetician Apprentice: Aamir Huerta MD #### 5224 #### [facility]/[place] [address] [facility] [place] Cosmetician Apprentice: Jasvir Lundberg M.D.,PhD MCH (RBC) [Entitic mass] 31.1 pg Normal 27.0-33.0 [facility] Comment on above: Performed By: #### 6 517, 6399, 1005, 496, 899, 73233 #### [facility] [place] [id number] Cosmetician Apprentice: Aamir Huerta MD #### 5224 #### [facility]/[place] [address] [facility] [place] Cosmetician Apprentice: Jasvir Lundberg M.D.,PhD MCHC (RBC) [Mass/Vol] 32.7 g/dL Normal 32.0-36.[address] [facility] Comment on above: Result Comment: For adults, a slight decrease in the calculated MCHC value (in the range of 30 to 32 g/dL) is most likely not clinically significant; however, it should be interpreted with caution in correlation with other red cell parameters and the patient's clinical condition. Performed By: #### 6 517, 6399, 1005, 496, 899, 85510 #### [facility] [address], [address] [place], [place] [address] Cosmetician Apprentice: Aamir Huerta MD #### 5224 #### [facility] [place] Cosmetician Apprentice: Jasvir Lundberg M.D.,PhD MCV (RBC) [Entitic vol] 95.1 fL Normal 80.0-100.0 [facility] Comment on above: Performed By: #### 6 517, 6399, 1005, 496, 899, 62032 #### [facility] of [address] Cosmetician Apprentice: Aamir Huerta MD #### 5224 #### [facility]/[address] [place], [place] Cosmetician Apprentice: Jasvir Lundberg M.D.,PhD Monocytes (Bld) [#/Vol] 0.354 10*3/uL Normal 200-950 [facility] Comment on above: Performed By: #### 6 517, 6399, 1005, 496, 899, 77814 #### [facility] of [place] [id number] Cosmetician Apprentice: Aamir Huerta MD #### 5224 #### [facility]/[address] [place], [place] Cosmetician Apprentice: Jasvir Lundberg M.D.,PhD Monocytes/100 WBC (Bld) 6.8 % Normal [facility] Comment on above: Performed By: #### 6 517, 6399, 1005, 496, 899, 23432 #### [facility] of [address] Cosmetician Apprentice: Aamir Huerta MD #### 5224 #### [facility]/[address] [place], [place] Cosmetician Apprentice: Jasvir Lundberg M.D.,PhD Neutrophils (Bld) [#/Vol] 3.562 10*3/uL Normal 7110-2911 [facility] Comment on above: Performed By: #### 6 517, 6399, 1005, 496, 899, 02084 #### [facility] of [place] [id number] Cosmetician Apprentice: Aamir Huerta MD #### 5224 #### [facility]/[place] [address] [facility] [place] Cosmetician Apprentice: Jasvir Lundberg M.D.,PhD Neutrophils/100 WBC (Bld) 68.5 % Normal [facility] Comment on above: Performed By: #### 6 517, 6399, 1005, 496, 899, 53255 #### [facility] of [address], [address] [place], [place] [address] Cosmetician Apprentice: Aamir Huerta MD #### 5224 #### [facility]/[place] [id number] [facility] [place] Cosmetician Apprentice: Jasvir Lundberg M.D.,PhD Platelet mean volume (Bld) [Entitic vol] 11.7 fL Normal 7.5-12.5 [facility] Comment on above: Performed By: #### 6 517, 6399, 1005, 496, 899, 49896 #### [facility] of [address], [address] [place], [place] [id number] Cosmetician Apprentice: Aamir Huerta MD #### 5224 #### [facility]/[place] [address] [facility] [place] Cosmetician Apprentice: Jasvir Lundberg M.D.,PhD Platelets (Bld) [#/Vol] 222 10*3/uL Normal 140-400 [facility] Comment on above: Performed By: #### 6 517, 6399, 1005, 496, 899, 61167 #### [facility] of [address], [address] [place], [place] [id number] Cosmetician Apprentice: Aamir Huerta MD #### 5224 #### [facility] [place] Cosmetician Apprentice: Jasvir Lundberg M.D.,PhD RBC (Bld) [#/Vol] 4.50 10*6/uL Normal 4.20-5.80 [facility] Comment on above: Performed By: #### 6 517, 6399, 1005, 496, 899, 48936 #### [facility] of [address], [address] [place] [address] Cosmetician Apprentice: Aamir Huerta MD #### 5224 #### [facility]/[address] [place], [place] Cosmetician Apprentice: Jasvir Lundberg M.D.,PhD WBC (Bld) [#/Vol] 5.2 10*3/uL Normal 3.8-10.8 [facility] Comment on above: Performed By: #### 6 517, 6399, 1005, 496, 899, 36147 #### [facility] of [address], [address] [place] [address] Cosmetician Apprentice: Aamir Huerta MD #### 5224 #### [facility]/[address] [place], [place] Cosmetician Apprentice: Jasvir Lundberg M.D.,PhD [facility] 01-05-2025 Albumin [Mass/Vol] 4.4 g/dL Normal 3.6-5.1 [facility] Comment on above: Performed By: #### 6 517, 6399, 1005, 496, 899, 31127 #### [facility] of [address], [address] [place] [address] Cosmetician Apprentice: Aamir Huerta MD #### 5224 #### [facility]/[address] [place] Cosmetician Apprentice: Jasvir Lundberg M.D.,PhD Albumin/Globulin [Mass ratio] 1.5 {ratio} Normal 1.0-2.5 [facility] Comment on above: Performed By: #### 6 517, 6399, 1005, 496, 899, 42134 #### [facility] of [address], [address] [place] [address] Cosmetician Apprentice: Aamir Huerta MD #### 5224 #### [facility] [place] Cosmetician Apprentice: Jasvir Lundberg M.D.,PhD ALP [Catalytic activity/Vol] 41 U/L Normal 35-144 [facility] Comment on above: Performed By: #### 6 517, 6399, 1005, 496, 899, 06662 #### [facility] of [place] [id number] Cosmetician Apprentice: Aamir Huerta MD #### 5224 #### [facility] [place] Cosmetician Apprentice: Jasvir Lundberg M.D.,PhD ALT [Catalytic activity/Vol] 11 U/L Normal 9-46 [facility] Comment on above: Performed By: #### 6 517, 6399, 1005, 496, 899, 43467 #### [facility] of [place] [id number] Cosmetician Apprentice: Aamir Huerta MD #### 5224 #### [facility] [place] Cosmetician Apprentice: Jasvir Lundberg M.D.,PhD AST [Catalytic activity/Vol] 13 U/L Normal 10-35 [facility] Comment on above: Performed By: #### 6 517, 6399, 1005, 496, 899, 19411 #### [facility] of [place] [id number] Cosmetician Apprentice: Aamir Huerta MD #### 5224 #### [facility] [place] Cosmetician Apprentice: Jasvir Lundberg M.D.,PhD Bilirubin [Mass/Vol] 0.7 mg/dL Normal 0.2-1.2 [facility] Comment on above: Performed By: #### 6 517, 6399, 1005, 496, 899, 67463 #### [facility] of [address], [address] [place] [address] Cosmetician Apprentice: Aamir Huerta MD #### 5224 #### [facility] [address] [facility] [place] Cosmetician Apprentice: Jasvir Lundberg M.D.,PhD BUN/CREATININE RATIO SEE NOTE: Normal 6-22 [facility] Comment on above: Result Comment: Not Reported: BUN and Creatinine are within reference range. Performed By: #### 6 517, 6399, 1005, 496, 899, 79407 #### [facility] of [address], [address] [place] [address] Cosmetician Apprentice: Aamir Huerta MD #### 5224 #### [facility]/[place] [address] [facility] [place] Cosmetician Apprentice: Jasvir Lundberg M.D.,PhD Calcium [Mass/Vol] 9.5 mg/dL Normal 8.6-10.3 [facility] Comment on above: Performed By: #### 6 517, 6399, 1005, 496, 899, 58836 #### [facility] of [place] [address], [address] [place], [place] [address] Cosmetician Apprentice: Aamir Huerta MD #### 5224 #### [facility]/[place] [address] [facility] [place] Cosmetician Apprentice: Jasvir Lundberg M.D.,PhD Chloride [Moles/Vol] 103 mmol/L Normal 98-110 [facility] Comment on above: Performed By: #### 6 517, 6399, 1005, 496, 899, 06862 #### [facility] of [place] [address], [address] [place], [place] [id number] Cosmetician Apprentice: Aamir Huerta MD #### 5224 #### [facility]/[place] [address] [facility] [address] [place] Cosmetician Apprentice: Jasvir Lundberg M.D.,PhD CO2 [Moles/Vol] 22 mmol/L Normal 20-32 [facility] Comment on above: Performed By: #### 6 517, 6399, 1005, 496, 899, 33313 #### [facility] [address], [address] [place], [place] [address] Cosmetician Apprentice: Aamir Huerta MD #### 5224 #### [facility]/[address] [place], [place] Cosmetician Apprentice: Jasvir Lundberg M.D.,PhD Creatinine [Mass/Vol] 1.28 mg/dL Normal 0.70-1.[address] [facility] Comment on above: Performed By: #### 6 517, 6399, 1005, 496, 899, 00543 #### [facility] [address], [address] [place], [place] [address] Cosmetician Apprentice: Aamir Huerta MD #### 5224 #### [facility]/[address] [place], [place] Cosmetician Apprentice: Jasvir Lundberg M.D.,PhD GFR/1.73 sq M.predicted among non-blacks MDRD (S/P/Bld) [Vol rate/Area] 62 mL/min/{1.73_m2} Normal > OR = 60 [facility] Comment on above: Performed By: #### 6 517, 6399, 1005, 496, 899, 32767 #### [facility] [address], [address] [place], [place] [address] Cosmetician Apprentice: Aamir Huerta MD #### 5224 #### [facility]/[place] [id number] [facility] [address] [place] Cosmetician Apprentice: Jasvir Lundberg M.D.,PhD Globulin (S) [Mass/Vol] 2.9 g/dL Normal 1.9-3.7 [facility] Comment on above: Performed By: #### 6 517, 6399, 1005, 496, 899, 62426 #### [facility] [place] [address] Cosmetician Apprentice: Aamir Huerta MD #### 5224 #### [facility]/[place] [address] [facility] [place] Cosmetician Apprentice: Jasvir Lundberg M.D.,PhD Glucose [Mass/Vol] 133 mg/dL High 65-99 [facility] Comment on above: Result Comment: Fasting reference interval For someone without known diabetes, a glucose value >125 mg/dL indicates that they may have diabetes and this should be confirmed with a follow-up test. Performed By: #### 6 517, 6399, 1005, 496, 899, 05530 #### [place] [address] Cosmetician Apprentice: Aamir Huerta MD #### 5224 #### [facility]/[place] [address] [facility] [place] Cosmetician Apprentice: Jasvir Lundberg M.D.,PhD Potassium [Moles/Vol] 4.2 mmol/L Normal 3.5-5.[address] [facility] Comment on above: Performed By: #### 6 517, 6399, 1005, 496, 899, 25825 #### [facility] [place] [id number] Cosmetician Apprentice: Aamir Huerta MD #### 5224 #### [facility]/[place] [address] [facility] [place] Cosmetician Apprentice: Jasvir Lundberg M.D.,PhD Protein [Mass/Vol] 7.3 g/dL Normal 6.1-8.1 [facility] Comment on above: Performed By: #### 6 517, 6399, 1005, 496, 899, 51593 #### [facility] [address] [place] [address] Cosmetician Apprentice: Aamir Huerta MD #### 5224 #### [facility]/[place] [address] [facility] [place] Cosmetician Apprentice: Jasvir Lundberg M.D.,PhD Sodium [Moles/Vol] 137 mmol/L Normal 135-146 [facility] Comment on above: Performed By: #### 6 517, 6399, 1005, 496, 899, 98667 #### [facility] of [address], [address] [place] [address] Cosmetician Apprentice: Aamir Huerta MD #### 5224 #### [facility] [place] Cosmetician Apprentice: Jasvir Lundberg M.D.,PhD Urea nitrogen [Mass/Vol] 24 mg/dL Normal 7-25 [facility] Comment on above: Performed By: #### 6 517, 6399, 1005, 496, 899, 27084 #### [facility] [place] [address] Cosmetician Apprentice: Aamir Huerta MD #### 5224 #### [facility] [place] Cosmetician Apprentice: Jasvir Lundberg M.D.,PhD HEMOGLOBIN A1con 01-05-2025 HbA1c (Bld) [Mass fraction] 7.8 % High <5.7 [facility] Comment on above: Result Comment: For someone without known diabetes, a hemoglobin A1c value of 6.5% or greater indicates that they may have diabetes and this should be confirmed with a follow-up test. For someone with known diabetes, a value <7% indicates that their diabetes is well controlled and a value greater than or equal to 7% indicates suboptimal control. A1c targets should be individualized based on duration of diabetes, age, comorbid conditions, and other considerations. Currently, no consensus exists regarding use of hemoglobin A1c for diagnosis of diabetes for children. Performed By: #### 4 96, 64965, 6399, 6517, 7600 #### [facility] [address], [address] [place] [address] Cosmetician Apprentice: Aamir Huerta MD TEST AUTHORIZATIONon 025 CLIENT CONTACT: Normal [facility] Comment on above: Performed By: #### 6 517, 6399, 1005, 496, 899, 43970 #### [facility] [address], [address] [place] [address] Cosmetician Apprentice: Aamir Huerta MD #### 5224 #### [facility]/[place] [address] [facility] [place] Cosmetician Apprentice: Jasvir Lundberg M.D.,PhD COMMENT Normal [facility] Comment on above: Result Comment: Plea se have the ordering physician or his or her authorized customer engagement representative sign a copy of this report and promptly return it by faxing it to: [phone] or by returning the form to your membership assistant. Performed By: #### 6 517, 6399, 1005, 496, 899, 95091 #### [facility] [address], [address] [place] [address] Cosmetician Apprentice: Aamir Huerta MD #### 5224 #### [facility] [address] [facility] [place] Cosmetician Apprentice: Jasvir Lundberg M.D.,PhD REPORT ALWAYS MESSAGE SIGNATURE Normal [facility] Comment on above: Result Comment: The laboratory testing on this patient was verbally requested or confirmed by the ordering physician or his or her authorized customer engagement representative after contact with an employee of [employer]. Federal regulations require that we maintain on file written authorization for all laboratory testing. Accordingly we are asking that the ordering physician or his or her authorized customer engagement representative sign a copy of this report and promptly return it to the chief client officer. Signature: Performed By: #### 6 517, 6399, 1005, 496, 899, 69025 #### [facility] [address], [address] [place] [address] Cosmetician Apprentice: Aamir Huerta MD #### 5224 #### [facility]/[place] [address] [facility] [place] Cosmetician Apprentice: Jasvir Lundberg M.D.,PhD TEST CODE: 5224 Normal [facility] Comment on above: Performed By: #### 6 517, 6399, 1005, 496, 899, 55049 #### [facility] [place] [address] Cosmetician Apprentice: Aamir Huerta MD #### 5224 #### [facility]/[address] [place], [place] Cosmetician Apprentice: Jasvir Lundberg M.D.,PhD TEST NAME: APOLIPORTEIN B Normal [facility] Comment on above: Performed By: #### 6 517, 6399, 1005, 496, 899, 79993 #### [facility] [place] [address] Cosmetician Apprentice: Aamir Huerta MD #### 5224 #### [facility]/[address] [place], [place] Cosmetician Apprentice: Jasvir Lundberg M.D.,PhD TSHon 01-05-2025 TSH Qn 2.57 m[IU]/L Normal 0.40-4.50 [facility] Comment on above: Performed By: #### 4 96, 83031, 6399, 6517, 7600 #### [facility] of [place] [address] Cosmetician Apprentice: Aamir Huerta MD ALBUMIN, RANDOM URINE W/CREA Ramu 08-17-2024 ALBUMIN, URINE 1.0 mg/dL Normal See Note: [facility] Comment on above: Result Comment: Refe rentaylor Range: Reference Range Not established Performed By: #### 4 96, 33573, 63, 6517, 7600 #### [facility] [place] [address] Cosmetician Apprentice: Aamir Huerta MD ALBUMIN/CREATININE RATIO, RANDOM URINE 12 mg/g creat Normal <30 [facility] Comment on above: Result Comment: The ADA defines abnormalities in albumin excretion as follows: Albuminuria Category Result (mg/g creatinine) Normal to Mildly increased <30 Moderately increased 30-299 Severely increased > OR = 300 The ADA recommends that at least two of three specimens collected within a 3-6 month period be abnormal before considering a patient to be within a diagnostic category. Performed By: #### 4 96, 80671, 63, 6517, 7600 #### [facility] [place] [address] Cosmetician Apprentice: Aamir Huerta MD Creatinine (U) [Mass/Vol] 83 mg/dL Normal 20-320 [facility] Comment on above: Performed By: #### 4 96, 41759, 63, 6517, 7600 #### [facility] [place] [address] Cosmetician Apprentice: Aamir Huerta MD CBC (INCLUDES DIFF/PLT)on Basophils (Bld) [#/Vol] 0.019 10*3/uL Normal 0-200 [facility] Comment on above: Performed By: #### 4 96, 56548, 63, 6517, 7600 #### [facility] [place] [address] Cosmetician Apprentice: Aamir Huerta MD Basophils/100 WBC (Bld) 0.4 % Normal [facility] Comment on above: Performed By: #### 4 96, 28288, 6399, 6517, 7600 #### [facility] [place] [address] Cosmetician Apprentice: Aamir Huerta MD Eosinophils (Bld) [#/Vol] 0.082 10*3/uL Normal 15-500 [facility] Comment on above: Performed By: #### 4 96, 01346, 6399, 6517, 7600 #### [facility] of [place] [address] Cosmetician Apprentice: Aamir Huerta MD Eosinophils/100 WBC (Bld) 1.7 % Normal [facility] Comment on above: Performed By: #### 4 96, 14786, 63, 6517, 7600 #### [facility] of [place] [address] Cosmetician Apprentice: Aamir Huerta MD Erythrocyte distribution width (RBC) [Ratio] 13.2 % Normal 11.0-15.0 [facility] Comment on above: Performed By: #### 4 96, 67344, 63, 6517, 7600 #### [facility] of [place] [address] Cosmetician Apprentice: Aamir Huerta MD Hematocrit (Bld) [Volume fraction] 42.2 % Normal 38.5-50.0 [facility] Comment on above: Performed By: #### 4 96, 58350, 63, 6517, 7600 #### [facility] of [place] [address] Cosmetician Apprentice: Aamir Huerta MD Hemoglobin (Bld) [Mass/Vol] 14.0 g/dL Normal 13.2-17.1 [facility] Comment on above: Performed By: #### 4 96, 92611, 63, 6517, 7600 #### [facility] of [place] [address] Cosmetician Apprentice: Aamir Huerta MD Lymphocytes (Bld) [#/Vol] 1.138 10*3/uL Normal 850-3900 [facility] Comment on above: Performed By: #### 4 96, 69143, 6399, 6517, 7600 #### [facility] of [place] [address] Cosmetician Apprentice: Aamir Huerta MD Lymphocytes/100 WBC (Bld) 23.7 % Normal [facility] Comment on above: Performed By: #### 4 , , 6398, 65, 7600 #### [facility] of [place] [address] Cosmetician Apprentice: Aamir Huerta MD MCH (RBC) [Entitic mass] 30.9 pg Normal 27.0-33.0 [facility] Comment on above: Performed By: #### 4 , , 6398, 65, 7600 #### [facility] of [place] [address] Cosmetician Apprentice: Aamir Huerta MD MCHC (RBC) [Mass/Vol] 33.2 g/dL Normal 32.0-36.[address] [facility] Comment on above: Result Comment: For adults, a slight decrease in the calculated MCHC value (in the range of 30 to 32 g/dL) is most likely not clinically significant; however, it should be interpreted with caution in correlation with other red cell parameters and the patient's clinical condition. Performed By: #### 4 , , 6398, 65, 7600 #### [facility] [place] [address] Cosmetician Apprentice: Aamir Huerta MD MCV (RBC) [Entitic vol] 93.2 fL Normal 80.0-100.0 [facility] Comment on above: Performed By: #### 4 , , 6398, 65, 7600 #### [facility] of [place] [address] Cosmetician Apprentice: Aamir Huerta MD Monocytes (Bld) [#/Vol] 0.36 10*3/uL Normal 200-950 [facility] Comment on above: Performed By: #### 4 96, , 63, 65, 7600 #### [facility] of [place] [address] Cosmetician Apprentice: Aamir Huerta MD Monocytes/100 WBC (Bld) 7.5 % Normal [facility] Comment on above: Performed By: #### 4 96, 00443, 6399, 6517, 7600 #### [facility] of [place] [address] Cosmetician Apprentice: Aamir Huerta MD Neutrophils (Bld) [#/Vol] 3.202 10*3/uL Normal 9143-1009 [facility] Comment on above: Performed By: #### 4 96, 37630, 6399, 6517, 7600 #### [facility] of [address], [address] [place] [address] Cosmetician Apprentice: Aamir Huerta MD Neutrophils/100 WBC (Bld) 66.7 % Normal [facility] Comment on above: Performed By: #### 4 96, 10175, 6399, 6517, 7600 #### [facility] of [place] [address] Cosmetician Apprentice: Aamir Huerta MD Platelet mean volume (Bld) [Entitic vol] 11.4 fL Normal 7.5-12.5 [facility] Comment on above: Performed By: #### 4 96, 54771, 6399, 6517, 7600 #### [facility] of [place] [address] Cosmetician Apprentice: Aamir Huerta MD Platelets (Bld) [#/Vol] 244 10*3/uL Normal 140-400 [facility] Comment on above: Performed By: #### 4 96, 31183, 6399, 6517, 7600 #### [facility] [place] [address] Cosmetician Apprentice: Aamir Huerta MD RBC (Bld) [#/Vol] 4.53 10*6/uL Normal 4.20-5.80 [facility] Comment on above: Performed By: #### 4 96, 31959, 6399, 6517, 7600 #### [facility] [place] [address] Cosmetician Apprentice: Aamir Huerta MD WBC (Bld) [#/Vol] 4.8 10*3/uL Normal 3.8-10.8 [facility] Comment on above: Performed By: #### 4 96, 88618, 6399, 6517, 7600 #### [facility] of [address], [address] [place] [address] Cosmetician Apprentice: Aamir Huerta MD COMPREHENSIVE METABOLIC PANE [facility] 08-17-2024 Albumin [Mass/Vol] 4.3 g/dL Normal 3.6-5.1 [facility] Comment on above: Performed By: #### 4 96, 28603, 6399, 6517, 7600 #### [facility] [place] [address] Cosmetician Apprentice: Aamir Huerta MD Albumin/Globulin [Mass ratio] 1.7 {ratio} Normal 1.0-2.5 [facility] Comment on above: Performed By: #### 4 96, 47054, 6399, 6517, 7600 #### [facility] [address], [address] [place] [address] Cosmetician Apprentice: Aamir Huerta MD ALP [Catalytic activity/Vol] 46 U/L Normal 35-144 [facility] Comment on above: Performed By: #### 4 96, 46447, 6399, 6517, 7600 #### [facility] [place] [address] Cosmetician Apprentice: Aamir Huerta MD ALT [Catalytic activity/Vol] 10 U/L Normal 9-46 [facility] Comment on above: Performed By: #### 4 96, 00680, 6399, 6517, 7600 #### [facility] [place] [address] Cosmetician Apprentice: Aamir Huerta MD AST [Catalytic activity/Vol] 14 U/L Normal 10-35 [facility] Comment on above: Performed By: #### 4 96, 45670, 6399, 6517, 7600 #### [facility] [place] [address] Cosmetician Apprentice: Aamir Huerta MD Bilirubin [Mass/Vol] 0.6 mg/dL Normal 0.2-1.2 [facility] Comment on above: Performed By: #### 4 96, 58334, 63, 6517, 7600 #### [facility] [place] [address] Cosmetician Apprentice: Aamir Huerta MD Calcium [Mass/Vol] 9.6 mg/dL Normal 8.6-10.3 [facility] Comment on above: Performed By: #### 4 96, 23616, 6399, 6517, 7600 #### [facility] [place] [address] Cosmetician Apprentice: Aamir Huerta MD Chloride [Moles/Vol] 101 mmol/L Normal 98-110 [facility] Comment on above: Performed By: #### 4 96, 55438, 63, 6517, 7600 #### [facility] [place] [address] Cosmetician Apprentice: Aamir Huerta MD CO2 [Moles/Vol] 26 mmol/L Normal 20-32 [facility] Comment on above: Performed By: #### 4 96, 55651, 63, 6517, 7600 #### [facility] [place] [address] Cosmetician Apprentice: Aamir Huerta MD Creatinine [Mass/Vol] 1.36 mg/dL High 0.70-1.[address] [facility] Comment on above: Performed By: #### 4 96, 41297, 6399, 6517, 7600 #### [facility] [place] [address] Cosmetician Apprentice: Aamir Huerta MD GFR/1.73 sq M.predicted among non-blacks MDRD (S/P/Bld) [Vol rate/Area] 58 mL/min/{1.73_m2} Low > OR = 60 [facility] Comment on above: Performed By: #### 4 96, 10085, 6399, 6517, 7600 #### [facility] [address], [address] [place] [address] Cosmetician Apprentice: Aamir Huerta MD Globulin (S) [Mass/Vol] 2.6 g/dL Normal 1.9-3.7 [facility] Comment on above: Performed By: #### 4 96, 84305, 63, 6517, 7600 #### [facility] [place] [address] Cosmetician Apprentice: Aamir Huerta MD Glucose [Mass/Vol] 130 mg/dL High 65-99 [facility] Comment on above: Result Comment: Fasting reference interval For someone without known diabetes, a glucose value >125 mg/dL indicates that they may have diabetes and this should be confirmed with a follow-up test. Performed By: #### 4 96, 85375, 63, 6517, 7600 #### [facility] [place] [address] Cosmetician Apprentice: Aamir Huerta MD Potassium [Moles/Vol] 4.3 mmol/L Normal 3.5-5.[address] [facility] Comment on above: Performed By: #### 4 96, 89913, 63, 6517, 7600 #### [facility] [place] [address] Cosmetician Apprentice: Aamir Huerta MD Protein [Mass/Vol] 6.9 g/dL Normal 6.1-8.1 [facility] Comment on above: Performed By: #### 4 96, 49017, 63, 6517, 7600 #### [facility] [place] [address] Cosmetician Apprentice: Aamir Huerta MD Sodium [Moles/Vol] 135 mmol/L Normal 135-146 [facility] Comment on above: Performed By: #### 4 96, 59972, 63, 6517, 7600 #### [facility] [place] [address] Cosmetician Apprentice: Aamir Huerta MD Urea nitrogen [Mass/Vol] 19 mg/dL Normal 7-25 [facility] Comment on above: Performed By: #### 4 96, 51505, 6399, 6517, 7600 #### [facility] [place] [address] Cosmetician Apprentice: Aamir Huerta MD Urea nitrogen/Creatinine [Mass ratio] 14 mg/mg Normal 6-22 [facility] Comment on above: Performed By: #### 4 96, 08905, 63, 6517, 7600 #### [facility] [address], [address] [place] [address] Cosmetician Apprentice: Aamir Huerta MD HEMOGLOBIN A1con 08-17-2024 HbA1c (Bld) [Mass fraction] 7.2 % High <5.7 [facility] Comment on above: Result Comment: For someone without known diabetes, a hemoglobin A1c value of 6.5% or greater indicates that they may have diabetes and this should be confirmed with a follow-up test. For someone with known diabetes, a value <7% indicates that their diabetes is well controlled and a value greater than or equal to 7% indicates suboptimal control. A1c targets should be individualized based on duration of diabetes, age, comorbid conditions, and other considerations. Currently, no consensus exists regarding use of hemoglobin A1c for diagnosis of diabetes for children. Performed By: #### 4 96, 53877, 63, 6517, 7600 #### [facility] [address], [address] [place] [address] Cosmetician Apprentice: Aamir Huerta MD LIPID PANEL, STANDARDon 07-28 Cholesterol [Mass/Vol] 131 mg/dL Normal <200 [facility] Comment on above: Order Comment: FASTI NG:YES FASTING: YES Performed By: #### 4 96, 00333, 6399, 6517, 7600 #### [facility] [address], [address] [place] [address] Cosmetician Apprentice: Aamir Huerta MD Cholesterol in HDL [Mass/Vol] 43 mg/dL Normal > OR = 40 [facility] Comment on above: Order Comment: FASTI NG:YES FASTING: YES Performed By: #### 4 96, 12503, 6399, 6517, 7600 #### [facility] [address], [address] [place] [address] Cosmetician Apprentice: Aamir Huerta MD Cholesterol in LDL [Mass/Vol] 63 mg/dL Normal [facility] Comment on above: Order Comment: FASTI NG:YES FASTING: YES Result Comment: Refe rence range: <100 Desirable range <100 mg/dL for primary prevention; <70 mg/dL for patients with CHD or diabetic patients with > or = 2 CHD risk factors. LDL-C is now calculated using the Jimi calculation, which is a validated novel method providing better accuracy than the Friedewald equation in the estimation of LDL-C. Anton SS et al. JORGE A. 2013;310(19): 3837-4335 (http://education.Instant Opinion.BioIQ/faq/QRW158) Performed By: #### 4 96, 83384, 6399, 6517, 7600 #### [facility] [address], [address] [place] [address] Cosmetician Apprentice: Aamir Huerta MD Cholesterol.total/Ashley sterol in HDL [Mass ratio] 3.0 {ratio} Normal <5.0 [facility] Comment on above: Order Comment: FASTI NG:YES FASTING: YES Performed By: #### 4 96, 31612, 6399, 6517, 7600 #### [facility] [address], [address] [place] [address] Cosmetician Apprentice: Aamir Huerta MD NON HDL CHOLESTEROL 88 mg/dL (calc) Normal <130 [facility] Comment on above: Order Comment: FASTI NG:YES FASTING: YES Result Comment: For patients with diabetes plus 1 major ASCVD risk factor, treating to a non-HDL-C goal of <100 mg/dL (LDL-C of <70 mg/dL) is considered a therapeutic option. Performed By: #### 4 96, 63220, 6399, 6517, 7600 #### [facility] [address], [address] [place] [address] Cosmetician Apprentice: Aamir Huerta MD Triglyceride [Mass/Vol] 171 mg/dL High <150 [facility] Comment on above: Order Comment: FASTI NG:YES FASTING: YES Performed By: #### 4 96, 76638, 6399, 6517, 7600 #### [facility] [address], [address] [place] [address] Cosmetician Apprentice: Aamir Huerta MD TSHon 08-17-2024 TSH Qn 1.06 m[IU]/L Normal 0.40-4.50 [facility] Comment on above: Performed By: #### 4 96, 67064, 6399, 6517, 7600 #### [facility] [address] [facility], [address] [place] [address] Cosmetician Apprentice: Aamir Huerta MD ED Discharge Educationon ED Discharge Education Normal So [facility] ED Patient Summaryon 021 ED Patient Summary [facility] Emergency Department Discharge Instructions [address] [place] [address] \.br\(Patient Copy)\.br\ \.br\Name: ALEKSANDRA FINNEY : 1960 \.br\Allergies: No Known Allergies\.br\Diagnosis : Diagnoses This Visit\.br\ COVID-19 virus infection (U07.1)\.br\ Medical problem - minor ([id number])\.br\ Medical screening exam ([id number])\.br\\.b r\\.br\ \.br\ Visit Date: 03/19/2021 08:23:28 \.br\ Current Date Time: 03/19/2021 08:42:54 \.br\Address: [address] [place] [address] \.br\ \.br\ \.br\Primary Care Provider: \.br\ Name: MATTHEW ACOSTA\.br\ Phone: [phone] \.br\ \.br\Emergency Department Care Providers: \.br\ Primary Physician: ALEJANDRA GREEN DO \.br\ \.br\ \.br\\.br\Thank you for choosing [facility] for your emergency care. You are very important to us. Our goal is to demonstrate our high quality medical care, and provide you with a very good patient experience.\.br\\.br\Yo u may receive a survey about our service. Please take the time to complete the survey and return it so we can continue to enhance our service.\.br\\.br\Thank you again for allowing the [facility] Emergency Department to care for your medical needs. If you have questions about your care or follow up information please contact us at [phone].\.br\\.br\ Follow-Up Instructions\.br\ \.br\ALEKSANDRA MILLER has been given these follow-up instructions:\.br\\.br\ Patient Education Materials\.br\ \.br\ALEKSANDRA REYES has been given the following patient education materials:\.br\\.br\ \.br\BEFORE YOU LEAVE\.br\\.br\Set up your [facility] [employer] account!\.br\ \.br\[employer] is a secure, online health management tool that connects you to portions of your hospital-based electronic medical record, allowing you to see test results, manage appointments, access discharge care instructions and much more.\.br\ \.br\You can access [employer] from a computer, tablet or smartphone. Enrollment/registration is required. If you do not have a [employer] account, please provide us with an email address before you leave so that we may set up an account for you.\.br\ \.br\New to [employer]!\.br\You may now securely connect some of the health management apps you use (e.g., fitness trackers, dietary trackers, etc.) to your health record in [facility] [employer]. This new feature provides expanded access to your health and wellness data, which will help you and your care team make informed decisions about your health care. \.br\If you are interested in using a health management bertha not currently connected to [employer], contact a Claim Adjuster at [phone] or [email or web address]. We will determine if the bertha meets the technical requirements to connect to [facility] [employer] and assure the security of your private health information.\.br\\.br\ \.br\ Medication Information\.br\ \.br\ALEKSANDRA AGUILERA has been given the following medication information:\.br\No Discharge Medications. \.br\\.br\Understanding your home medicine is important to keeping you healthy. If you are taking medications that are not on the preceding list, please call your doctor to see if you are to continue that medication. It is important that you do not skip or make up doses. If you are ordered an antibiotic, finish taking all the medicine, unless your doctor tells you otherwise. Call your doctor if you have questions or problems. Take the medicine list with you to all follow up appointments. \.br\ \.br\If you or a loved one is struggling with a mental health or substance abuse issue, please call [facility] at [phone] or the National Suicide Prevention Lifeline at .\.br\ \.br\ \.br\\.br\MIKAELA Steinberg IVAN, have received the follow-up provider(s) list, medication information and patient education materials/instructions and have verbalized understanding.\.br\ \.br\ \.br\Patient Signature \.br\Date \.br\Time \.br\ \.br\ \.br\Pr ovider Signature \.br\Date \.br\Time Normal [facility] ED Physician Reporton 2020 ED Physician Report Patient: Idris FINNEY Age: 60 years Sex: Male : 1960 Associated Diagnoses: COVID-19 virus infection Author: ALEJANDRA GREEN DO Basic Information Time seen: Date & time 03/19/2021 08:30:00. History source: Patient. Arrival mode: Private vehicle. History limitation: None. History of Present Illness The patient presents with Came in to get checked out, recent diagnosis of COVID-19. The onset was 1 weeks ago. The course/duration of symptoms is constant. The degree at onset was minimal. The degree at present is moderate. Risk factors consist of obesity. Associated symptoms: shortness of breath and denies chest pain. This patient is scheduled for a monoclonal antibody infusion this morning here in this facility. He presents to the ED because he was not sure if he still needed it or not. He is feeling somewhat better, but not fully recovered. Complaining of some mild shortness of breath, increased work of breathing, cough, chest congestion.. Review of Systems Constitutional symptoms: No fever, no chills, no sweats, no weakness. Skin symptoms: No abrasions, Eye symptoms: Vision unchanged. ENMT symptoms: No ear pain, no sore throat. Respiratory symptoms: Shortness of breath, cough. Cardiovascular symptoms: No chest pain, no palpitations. Gastrointestinal symptoms: No abdominal pain, no nausea, no vomiting. Genitourinary symptoms: No dysuria, Musculoskeletal symptoms: Negative except as documented in HPI, No back pain, Hematologic/Lymphatic symptoms: Bleeding tendency negative, Neurologic symptoms No headache, no dizziness, no altered level of consciousness. Additional review of systems information: All other systems reviewed and otherwise negative. Health Status Allergies: Allergic Reactions (Selected) No Known Allergies. Medications: (Selected) Inpatient Medications Ordered Sodium Chloride 0.9%(NS): 50 mL, 200 mL/hr, IV Piggyback, ONCE casirivimab-imdevimab: 1,200 mg = 10 mL, 260 mL/hr, IV Piggyback, ONCE. Past Medical/ Family/ Social History Medical history: No active or resolved past medical history items have been selected or recorded.. Surgical history: No active procedure history items have been selected or recorded.. Family history: No family history items have been selected or recorded.. Social history: Alcohol use: Denies, Tobacco use: Denies, Drug use: Denies. Physical Examination General: Alert, no acute distress, Well developed, well nourished. Vital Signs Skin: Warm, dry, no rash. Head: Normocephalic, atraumatic. Neck: Supple, trachea midline. Eye: Pupils are equal, round and reactive to light, extraocular movements are intact. Ears, nose, mouth and throat: Oral mucosa moist. Cardiovascular: Regular rate and rhythm, No murmur, Normal peripheral perfusion, No edema. Respiratory: Respirations are non-labored, breath sounds are equal, Bilateral faint to mild rales. Gastrointestinal: Soft, Nontender, Non distended, Normal bowel sounds. Back: Normal range of motion. Musculoskeletal: Normal ROM, normal strength, no swelling. Psychiatric: Cooperative. Neurological Alert and oriented to person, place, time, and situation, No focal neurological deficit observed, normal sensory observed, normal motor observed, normal speech observed. Medical Decision Making Differential Diagnosis: Documents reviewed: Emergency department nurses' notes, emergency department records, prior records. Impression and Plan Diagnosis COVID-19 virus infection (TGE81-XR U07.1, Working, Medical) Plan Condition: Stable. Disposition: ED Discharge to Home was placed.(03/19/2021 07:41:00 EST, Constant Order), Discharged: Time 03/19/2021 08:41:00, to home. Patient was given the following educational materials: Coronavirus Disease (COVID-19): General Info, Coronavirus Disease (COVID-19): General Info. Follow up with: DR WILD LORENZANA ON STAFF Within 3 to 5 days, In: Referred for previously scheduled monoclonal antibody infusion immediately after this ED visit.. Counseled: Patient, Regarding diagnosis, Regarding treatment plan, Patient indicated understanding of instructions. Normal [facility] ED Progress Noteon ED Progress Note Patient to [facility] [place] for infusion. IV established, infusion started without incident. No reaction noted. Patient discharged from [facility] [place]. IV removed, no reaction noted. Normal [facility] SARS-CoV-2 (COVID-19) Ab IA Ql 0830 Patient arrives ambulatory and able to speak full sentences. States he was diagnosed with Covid 10 days ago and was scheduled for the monoclonal antibody infusion today. Pt complains of feeling short of breath with exertion. No chest pain. Does not appear to have any respiratory distress upon arrival. Dr Green examined. 0835 Pt decided to have the infusion,. D/c'd from the ED. Normal [facility] Basic metabolic 2000 panelon 10-23-2020 Anion gap [Moles/Vol] 9.0 mmol/L Normal 6.0-18.0 [facility] Comment on above: Performed By: #### 2 4321-2 #### [facility] [address] [place] [address] Calcium [Mass/Vol] 9.6 mg/dL Normal 8.9-10.[address] [facility] Comment on above: Performed By: #### 2 4321-2 #### [facility] [address] [place] [address] Chloride [Moles/Vol] 105 mmol/L Normal 98-107 [facility] Comment on above: Performed By: #### 2 4321-2 #### [facility] [address] [facility] [place] [address] CO2 [Moles/Vol] 24 mmol/L Normal 22-32 [facility] Comment on above: Performed By: #### 2 4321-2 #### [facility] [address] [facility] [place] [address] Creatinine [Mass/Vol] 1.57 mg/dL High 0.60-1.30 [facility] Comment on above: Performed By: #### 2 4321-2 #### [facility] [address] [facility] [place] [address] Glucose [Mass/Vol] 307 mg/dL High 70-[address] [facility] Comment on above: Result Comment: U pdated ADA Reference Range A normal fasting glucose concentration is less than 100 mg/dL. An impaired fasting glucose concentration is 100-125 mg/dL. A provisional diagnosis of diabetes mellitus can be made when a fasting glucose concentration is greater than 125 mg/dL. Performed By: #### 2 4321-2 #### [facility] [address] [place] [address] Potassium [Moles/Vol] 4.2 mmol/L Normal 3.6-5.1 [facility] Comment on above: Performed By: #### 2 4321-2 #### [facility] [address] [facility] [place] [address] Sodium [Moles/Vol] 138 mmol/L Normal 136-[address] [facility] Comment on above: Performed By: #### 2 4321-2 #### [facility] [address] [facility] [place] [address] Urea nitrogen (BldV) [Mass/Vol] 22 mg/dL High 8-[address] [facility] Comment on above: Performed By: #### 2 4321-2 #### [facility] [address] [facility] [place] [address] CBC W Auto Differential pane l (Bld)on 10-23-2020 Basophils (Bld) [#/Vol] 0.02 thou/mcL Normal 0.00-0.[address] [facility] Comment on above: Performed By: #### 5 7021-8 #### [facility] [address] [place] [address] Basophils/100 WBC (Bld) 0.3 % Normal 0.0-2.0 [facility] Comment on above: Performed By: #### 5 7021-8 #### [facility] [address] [place] [address] Eosinophils (Bld) [#/Vol] 0.02 thou/mcL Normal 0.00-0.[address] [facility] Comment on above: Performed By: #### 5 7021-8 #### [facility] [address] [place] [address] Eosinophils/100 WBC (Bld) 0.3 % Normal 0.0-7.[address] [facility] Comment on above: Performed By: #### 5 7021-8 #### [facility] [address] [place] [address] Erythrocyte distribution width (RBC) [Entitic vol] 12.9 % Normal 11.0-14.[address] [facility] Comment on above: Performed By: #### 5 7021-8 #### [facility] [address] [place] [address] Hematocrit (Bld) [Volume fraction] 43.3 % Normal 39.0-49.[address] [facility] Comment on above: Performed By: #### 5 7021-8 #### [facility] [address] [place] [address] Hemoglobin (Bld) [Mass/Vol] 14.3 g/dL Normal 13.5-17.[address] [facility] Comment on above: Performed By: #### 5 7021-8 #### [facility] [address] [place] [address] Lymphocytes (Bld) [#/Vol] 0.69 thou/mcL Low 1.00-4.[address] [facility] Comment on above: Performed By: #### 5 7021-8 #### [facility] [address] [place] [address] Lymphocytes/100 WBC (Bld) 9.8 % Low 22.0-44.[address] [facility] Comment on above: Performed By: #### 5 7021-8 #### [facility] [address] [place] [address] MCH (RBC) [Entitic mass] 31.2 Picograms Normal 27.0-34.[address] [facility] Comment on above: Performed By: #### 5 7021-8 #### [place] [address] [place] [address] MCHC (RBC) [Mass/Vol] 33.0 g/dL Normal 32.0-36.0 [facility] Comment on above: Performed By: #### 5 7021-8 #### [address] [address] MCV (RBC) [Entitic vol] 94.3 fL Normal 80.0-97.0 [facility] Comment on above: Performed By: #### 5 7021-8 #### [place] [address] [place] [address] Monocytes (Bld) [#/Vol] 0.31 thou/mcL Normal 0.00-0.[address] [facility] Comment on above: Performed By: #### 5 7021-8 #### [place] [address] [place] [address] Monocytes/100 WBC (Bld) 4.4 % Normal 0.0-12.0 [facility] Comment on above: Performed By: #### 5 7021-8 #### [place] [address] [place] [address] Neutrophils (Bld) [#/Vol] 5.98 thou/mcL Normal 1.80-7.[address] [facility] Comment on above: Performed By: #### 5 7021-8 #### [place] [address] [place] [address] Neutrophils/100 WBC (Bld) 85.2 % High 40.0-70.[address] [facility] Comment on above: Performed By: #### 5 7021-8 #### [facility] [address] [place] [address] Platelet mean volume (Bld) [Entitic vol] 11.7 fL Normal 6.2-12.[address] [facility] Comment on above: Performed By: #### 5 7021-8 #### [facility] [address] [place] [address] Platelets (Bld) [#/Vol] 221 thou/mcL Normal 142-[address] [facility] Comment on above: Performed By: #### 5 7021-8 #### [place] [address] [place] [address] RBC (Bld) [#/Vol] 4.59 million/mcL Normal 4.30-5.70 [facility] Comment on above: Performed By: #### 5 7021-8 #### [place] [address] [place] [address] WBC (Bld) [#/Vol] 7.0 thou/mcL Normal 4.6-10.[address] [facility] Comment on above: Performed By: #### 5 7021-8 #### [address] [address] [address] Abd and Pelvis w Contrast on 10-23-2020 CT Abd and Pelvis w Contrast EXAMINATION TYPE: CT Abd and Pelvis w Contrast DATE OF EXAM : 10/23/2020 1:09 PM HISTORY: Right lower quadrant pain. Testicular pain. COMPARISON: Scrotal ultrasound from earlier today TECHNIQUE: The scan was performed through the entire abdomen and pelvis. Axial, sagittal and coronal images are available for review. CONTRAST: Intravenous contrast was administered. FINDINGS: Lower thorax: The lung bases are clear. No pleural effusion. Liver: Mild hepatic steatosis. Gallbladder and biliary tree: Normal appearance of the gallbladder. No biliary dilatation. Spleen: Normal in size. Adrenal glands: Normal. Pancreas: Normal. Kidneys and ureters: Mild right hydroureteronephrosis secondary to a 2 mm stone in the distal right ureter (image 85). There is delayed enhancement of the right kidney related to obstruction. No left hydronephrosis. Bowel: Colonic diverticulosis. No diverticulitis. No bowel obstruction. No bowel inflammation. Small hiatal hernia. Appendix: Normal caliber. No periappendiceal inflammation. Lymph nodes: No abdominal or pelvic lymphadenopathy. Peritoneum: No ascites or free air. Vessels: There are mild atherosclerotic calcifications of the aorta. Bladder: Normal. Prostate and seminal vesicles: There are coarse calcifications in the prostate. The seminal vesicles appear normal. Abdominal/pelvic wall: Umbilical hernia repair. Small fat-containing inguinal hernias. Bones: Degenerative changes are present in the visualized thoracolumbar spine. No osseous lesion. IMPRESSION: 1. Mild right hydroureteronephrosis due to a 2 mm obstructing stone in the distal right ureter. 2. Colonic diverticulosis. 3. Mild hepatic steatosis. 4. Small hiatal hernia. [place] thanks you for the opportunity to care for your patient. Workstation ID: [id number] - [id number] FINAL REPORT Dictated By: Ike Velez MD 10/23/2020 13:17 Assigned Physician: Ike Velez MD Reviewed and Electronically Signed By: Ike Velez MD 10/23/2020 13:21 Transcribed by: NATALIA 10/23/2020 13:17 Technologist: PRINCESS Johnson [facility] ED [facility] Silas 10-23-2020 [place] [address] Emergency Department Discharge Instructions ALEKSANDRA FINNEY, Please provide this information to your Primary Care/Specialist Name: ALEKSANDRA FINNEY Current Date : 10/23/2020 16:42:41 : 1960 Primary Care Physician: Diagnosis : Kidney stone Follow-Up Instructions: ALEKSANDRA FINNEYas been given these follow-up instructions: FOLLOW-UP APPOINTMENTS: Provider: Specialty: Address: Date: Follow up with primary care provider Call for an Appointment Comment: and UROLOGY referal Laboratory Orders: Name: Status: Urinalysis with Microscopic Automatic Completed Basic Metabolic Panel Completed CBC with Differential Completed Hepatic Function Panel Completed Lipase Completed Lactate Level Completed GFRaa Completed GFRbb Completed Urinalysis Microscopic Completed Radiology Orders: Name: Status: CT Abd and Pelvis w Contrast Completed NV Duplex Abd/Pelvis Retroper Complete Completed US Scrotum and Contents Completed Diagnostic Tests: None Ordered Procedure(s) and Patient Education(s) : Kidney Stones EMERGENCY SERVICES MEDICATION LIST Lista de Medicaciones de los Servicios de Emergencia Name ALEKSANDRA FINNEY MRN [facility]-[id number] PLEASE READ THE FOLLOWING REGARDING YOUR MEDICATIONS Based on the information available during your visit we have given you the medication instructions below. Continue taking medications you took prior to your visit unless you have been told to change. Please share this information with your own doctor. Carry a list of your medications with you in case of an emergency. Update it when medications are stopped, doses are changed, or new medications (including nylo-aug-[id number] products) are added. If you have any questions, check with your doctor. Por la informaci??n disponible mainor sharp visita, las instrucciones de medicaci??n aparecen debajo. Favor de continuar tomando las medicaciones Ud. kimber?? antes de sharp visita por lo menos que hay cambios. Favor de compartir esta informaci??n con sharp medico. Lleva kyle lista de medicaciones consigo por dilip de emergenc??a. Actualiza la lista cuando Ud. sintia de jacki las medicaciones, si cambian las dosis, o si hay nuevas medicaciones a??adidas (incluyendo medicaciones vendidas sin prescripci??n). Favor de preguntar a sharp medico por cualquier bill. THESE ARE THE MEDICATIONS YOU SHOULD BE TAKING acetaminophen-HYDROcodo ne (Henderson 325 mg-5 mg oral tablet) 1-2 By Mouth every 6 hours as needed for pain for 2 Days. Refills: 0. Diagnosis: Kidney stone [N20.0] ibuprofen (Motrin 600 mg oral tablet) 1 Tab(s) By Mouth 4 Times/Day for 5 Days. with food or milk. Refills: 0. ondansetron (Zofran ODT 4 mg oral tablet, disintegrating) 1 Tab(s) Under the Tongue every 6 hours as needed Nausea and Vomitting for 3 Days. Refills: 0. MEDICATIONS GIVEN DURING MEDICAL VISIT morphine 4 mg last dose given on 10/23/2020 at 12:05 Route: IV Push Administer over 3 - 5 minutes (for IVP). ondansetron 4 mg last dose given on 10/23/2020 at 12:05 Route: IV Push Administer over 2 minutes (for IV Push) hydromorphone 1 mg last dose given on 10/23/2020 at 13:13 Route: IV Push Administer over 2-5 minutes (for IVP) ketorolac 15 mg last dose given on 10/23/2020 at 13:54 Route: IV Push Do NOT give with other NSAID Medications Sodium Chloride 0.9% 1,000 mL last dose given on 10/23/2020 at 13:54 Route: Intravenous Bolus, Wide Open. NON-MEDICATION PRESCRIPTION SCHEDULING PHONE NUMBER: MEDICATION CHANGE DETAILS (Not your Final Home Medication List) During the course of your visit, your home medication list was updated with the most current information. The details of those changes are shown below: NEW MEDICATIONS Printed Prescriptions acetaminophen-HYDROcodo ne (Henderson 325 mg-5 mg oral tablet) 1-2 By Mouth every 6 hours as needed for pain for 2 Days. Refills: 0. Comment __ ibuprofen (Motrin 600 mg oral tablet) 1 Tab(s) By Mouth 4 Times/Day for 5 Days. with food or milk. Refills: 0. Comment __ ondansetron (Zofran ODT 4 mg oral tablet, disintegrating) 1 Tab(s) Under the Tongue every 6 hours as needed Nausea and Vomitting for 3 Days. Refills: 0. Comment __ UPDATED MEDICATIONS None UNCHANGED MEDICATIONS None STOP TAKING THESE MEDICATIONS None DO NOT TAKE UNTIL YOU TALK TO YOUR DOCTOR None [facility] [address] [place] [address] Emergency Department Discharge Instructions Name: ALEKSANDRA FINNEY Current Date: 10/23/2020 16:42:41 :1960 nbsp; Primary Physician: We would like to thank you for choosing [facility] for your emergency medical needs. We examined and treated you today on an emergency basis only (more content not included)... Normal [facility] GFR/1.73 sq M.predicted (S/P /Bld) [Vol rate/Area]on 10-23-2020 GFR/1.73 sq M.predicted among blacks MDRD (S/P/Bld) [Vol rate/Area] 55 mL/min/{1.73_m2} Normal [facility] Comment on above: Result Comment: The MDRD equation has not been validated for those over 70 years, women, patients with serious co-morbid conditions, or with extremes of body size, muscle mass of nutritional status. Performed By: #### 6 9405-9 #### [address] [address] GFRbbon 10-23-2020 GFR/1.73 sq M.predicted among non-blacks MDRD (S/P/Bld) [Vol rate/Area] 45 mL/min/{1.73_m2} Normal [facility] Comment on above: Performed By: #### 4 8642-3x1 #### [address] [address] Hepatic function 2000 panelo n 10-23-2020 Albumin [Mass/Vol] 4.6 g/dL Normal 3.5-4.[address] [facility] Comment on above: Performed By: #### 2 4325-3 #### [address] [address] ALP [Catalytic activity/Vol] 42 Units/L Normal 32-[address] [facility] Comment on above: Performed By: #### 2 4325-3 #### [address] [address] ALT [Catalytic activity/Vol] 15 Units/L Normal 7-[address] [facility] Comment on above: Result Comment: Emeterio renee note: Change in reference range for ALT occurred on 03/09/20 at [facility], [facility], [facility], and [facility]. Performed By: #### 2 4325-3 #### [facility] [address] [facility] [place] [place] [address] AST [Catalytic activity/Vol] 19 Units/L Normal 15-[address] [facility] Comment on above: Performed By: #### 2 4325-3 #### [facility] [address] [place] [address] Bilirubin [Mass/Vol] 0.6 mg/dL Normal 0.3-1.2 [facility] Comment on above: Performed By: #### 2 4325-3 #### [facility] [address] [facility] [place] [place] [address] Bilirubin.direct [Mass/Vol] 0.1 mg/dL Normal 0.1-0.[address] [facility] Comment on above: Performed By: #### 2 4325-3 #### [facility] [address] [facility] [place] [place] [address] Bilirubin.indirect [Mass/Vol] 0.5 mg/dL Normal 0.0-1.[address] [facility] Comment on above: Performed By: #### 2 4325-3 #### [facility] [address] [place] [address] Protein [Mass/Vol] 7.6 g/dL Normal 6.1-7.[address] [facility] Comment on above: Performed By: #### 2 4325-3 #### [facility] [address] [facility] [place] [place] [address] Lactate (Bld) [Mass/Vol]on 0 10-23-2020 Lactate [Moles/Vol] 1.3 mmol/L Normal 0.5-2.[address] [facility] Comment on above: Performed By: #### 5 9032-3 #### [facility] [address] [facility] [place] [place] [address] Lipaseon 10-23-2020 Lipase [Catalytic activity/Vol] 39 Units/L Normal 11-[address] [facility] Comment on above: Result Comment: Emeterio renee note: Change in reference range for LIP occurred on 03/09/20 at [facility], [facility], [facility], and [facility]. Performed By: #### 3 040-3 #### [address] [place] [address] Microscopic method Nom (U)on 10-23-2020 Epithelial cells.squamous LM.HPF (Urine sed) [#/Area] RARE Normal FEW/LPF [facility] Comment on above: Performed By: #### 6 9405-9 #### [address] [place] [address] Mucus Ql (Urine sed) RARE Abnormal NONE/LPF [facility] Comment on above: Performed By: #### 6 9405-9 #### [address] [place] [address] RBC LM.HPF (Urine sed) [#/Area] 22 /[HPF] High 0-[address] [facility] Comment on above: Performed By: #### 6 9405-9 #### [facility] [address] [place] [address] WBC LM.HPF (Urine sed) [#/Area] 2 /[HPF] Normal 0-[address] [facility] Comment on above: Performed By: #### 6 9405-9 #### [address] [address] NV Duplex Abd/Pelvis Retrope r Completeon 10-23-2020 US.doppler Abdominal vessels EXAMINATION TYPE: US Scrotum and Contents, NV Duplex Abd/Pelvis Retroper Complete DATE OF EXAM : 10/23/2020 12:54 PM HISTORY: Torsion, Testis. Scrotal pain. COMPARISON: CT from 10/23/2020 FINDINGS: The right testicle measures 4.8 x 2.6 x 2.3 cm and appears grossly normal. The left testicle measures 4.5 x 3.1 x 1.9 cm and appears mildly heterogeneous. No discrete testicular mass. The right epididymis appears normal. There is a small left epididymal head cyst measuring 0.4 cm. Both testicles demonstrate normal blood flow on color Doppler imaging. There are arterial and venous waveforms in both testicles on spectral Doppler evaluation. There is a left-sided varicocele. No significant hydrocele. IMPRESSION: 1. No testicular torsion. 2. Mildly heterogeneous left testicle, nonspecific. No discrete testicular mass. 3. Left-sided varicocele. Ciara Rom[facility] thanks you for the opportunity to care for your patient. Workstation ID: [id number] - [id number] FINAL REPORT Dictated By: Ike Velez MD 10/23/2020 13:11 Assigned Physician: Ike Velez MD Reviewed and Electronically Signed By: Ike Velez MD 10/23/2020 13:17 Transcribed by: NATALIA 10/23/2020 13:11 Technologist: CATRACHO Normal [facility] US Scrotum and Contentson US Scrotum and testicle EXAMINATION TYPE : US Scrotum and Contents, NV Duplex Abd/Pelvis Retroper Complete DATE OF EXAM : 10/23/2020 12:54 PM HISTORY: Torsion, Testis. Scrotal pain. COMPARISON: CT from 10/23/2020 FINDINGS: The right testicle measures 4.8 x 2.6 x 2.3 cm and appears grossly normal. The left testicle measures 4.5 x 3.1 x 1.9 cm and appears mildly heterogeneous. No discrete testicular mass. The right epididymis appears normal. There is a small left epididymal head cyst measuring 0.4 cm. Both testicles demonstrate normal blood flow on color Doppler imaging. There are arterial and venous waveforms in both testicles on spectral Doppler evaluation. There is a left-sided varicocele. No significant hydrocele. IMPRESSION: 1. No testicular torsion. 2. Mildly heterogeneous left testicle, nonspecific. No discrete testicular mass. 3. Left-sided varicocele. Ciara Romano thanks you for the opportunity to care for your patient. Workstation ID: [id number] - [id number] FINAL REPORT Dictated By: Ike Velez MD 10/23/2020 13:11 Assigned Physician: Ike Velez MD Reviewed and Electronically Signed By: Ike Velez MD 10/23/2020 13:17 Transcribed by: NATALIA 10/23/2020 13:11 Technologist: TCP Normal [facility] Urinalysis dipstick W Reflex Microscopic panel (U)on 10-23-2020 Appearance (U) CLEAR Normal CLEAR [facility] Comment on above: Performed By: #### 6 9405-9 #### [facility] [address] [place] [address] Bilirubin (U) [Mass/Vol] Negative Normal NEGATIVE-NE [facility] Comment on above: Performed By: #### 6 9405-9 #### [facility] [address] [facility] [place] [place] [address] Color (U) STRAW Abnormal YELLOW [facility] Comment on above: Performed By: #### 6 9405-9 #### [facility] [address] [place] [address] Glucose Test strip (U) [Mass/Vol] 500MG/DL Abnormal NORMAL [facility] Comment on above: Performed By: #### 6 9405-9 #### [facility] [address] [place] [address] Hemoglobin Ql (U) 300/UL Abnormal NEGATIVE-N E [facility] Comment on above: Performed By: #### 6 9405-9 #### [facility] [address] [place] [address] Ketones (U) [Mass/Vol] Negative Normal NEGAT BRIANNE-NE [facility] Comment on above: Performed By: #### 6 9405-9 #### [facility] [address] [place] [address] Leukocyte esterase Test strip Ql (U) Negative Normal NEGATIVE-NE [facility] Comment on above: Performed By: #### 6 9405-9 #### [facility] [address] [facility] [place] [address] Nitrite Test strip (U) [Mass/Vol] Negative Normal NEGATIVE-NE [facility] Comment on above: Performed By: #### 6 9405-9 #### [facility] [address] [place] [address] pH (U) 5.5 [pH] Normal 4.5-8.[address] [facility] Comment on above: Performed By: #### 6 9405-9 #### [facility] [address] [place] [address] Protein (U) [Mass/Vol] 30 mg/dL Abnormal NEGAT BRIANNE-NE GATIVE [facility] Comment on above: Performed By: #### 6 9405-9 #### [facility] [address] [place] [address] Specific gravity (U) [Rel density] 1.036 High 1.002-1.[address] [facility] Comment on above: Performed By: #### 6 9405-9 #### [facility] [address] [facility] [place] [address] Urobilinogen (U) [Mass/Vol] NORMAL Normal NORMAL [facility] Comment on above: Performed By: #### 6 9405-9 #### [facility] [address] [facility] [place] [address] PROGRESSon 09-29-2019 PROGRESS HNO ID: [id number] Author: Rey Hoskins Service: ? 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 Rey Hoskins MD Normal [facility] Basic Panelon 01-03-2018 Anion gap 3 molar conc 9 mmol/L Normal 8-20 [facility] Comment on above: Performed By: #### L P8 ####[address] [address] Calcium mass conc 8.6 mg/dL Normal 8.5-10.1 [facility] Comment on above: Performed By: #### L P8 ####[address] [address] Chloride molar conc 101 mmol/L Normal 98-107 [facility] [place] [facility] Comment on above: Performed By: #### L P8 ####[address] [place], [place] [address] CO2 molar conc 26 mmol/L Normal 21-32 [facility] Comment on above: Performed By: #### L P8 ####[facility] [place], [place] [address] Creatinine mass conc 1.38 mg/dL High 0.67-1.17 [facility] Comment on above: Performed By: #### L P8 ####[facility] [place], [place] [address] Glucose mass conc 191 mg/dL High 70-99 [facility] Comment on above: Performed By: #### L P8 ####[facility] [place] [address] Potassium molar conc 3.9 mmol/L Normal 3.5-5.1 [facility] Comment on above: Performed By: #### L P8 ####[place] [address] Sodium molar conc 132 mmol/L Low 136-145 [facility] Comment on above: Performed By: #### L P8 ####[facility] [place], [place] [address] Urea nitrogen mass conc (Bld) 17 mg/dL Normal 7-25 [facility] [place] [facility] Comment on above: Performed By: #### L P8 ####[address] [place] [address] Urea nitrogen/Creatinine mass ratio 12 mg/mg Normal 10-20 [facility] [place] [facility] Comment on above: Performed By: #### L P8 ####[address] [place] [address] CHEST 2 VIEWSon 01-03-2018 Protein mass conc Performed at [facility] APPROVED BY: KANIKA GERMAN MD EXAMINATION: CHEST RADIOGRAPH (2 VIEW FRONTAL & LATERAL) CLINICAL HISTORY: Chest pain MQ: [id number]: 06/13/2009 RESULT: Lines, tubes, and devices: None. Lungs and pleura: No consolidation. No lung mass. No pleural effusion. Cardiomediastinal silhouette: Normal cardiomediastinal silhouette. Other: No bony abnormalities. IMPRESSION:There has been no significant change. No acute radiographic abnormality. Normal [facility] [place] [facility] CT HEAD W/O CONTRASTon 01-03 Protein mass conc Performed at [facility] APPROVED BY: Jai Bundy MD BRAIN CT WITHOUT CONTRAST ENHANCEMENT Serial transverse images of the brain were obtained without contrast material. The study was technically limited due to artifact arising from patient motion and was performed within 24 hours of arrival to evaluate extremely fatigued and ataxia. CT Dose-Length Product (DLP): 883 mGy*cmCT Dose Reduction Employed: No dose reduction techniques were required Serial images demonstrate no definite evidence of acute infarction, hemorrhage, mass lesion, or midline shift. The overall size of the ventricular system is within normal limits. IMPRESSION: Limited study demonstrating no definitive acute abnormality as described above. Normal [facility] [place] [facility] Hemogram/Diffon 01-03-2018 Abs. Baso 0.01 thou/cmm Normal 0.00-0.08 [facility] Comment on above: Performed By: #### L CBCD ####[address] [address] Abs. [place] 0.45 thou/cmm Normal 0.20-1.00 [facility] Comment on above: Performed By: #### L CBCD ####[address] [address] Abs. Neut (ANC) 4.03 thou/cmm Normal 3.00-5.67 [facility] [place] [facility] Comment on above: Performed By: #### L CBCD ####[address] [address] Basophils/100 WBC Auto (Bld) 0.2 % Normal [facility] [place] [facility] Comment on above: Performed By: #### L CBCD ####[address] [address] Eosinophils Auto #/vol (Bld) 0.00 thou/cmm Normal 0.00-0.41 [facility] [place] [facility] Comment on above: Performed By: #### L CBCD ####[address] [address] Eosinophils/100 WBC Auto (Bld) 0.0 % Normal [facility] [place] [facility] Comment on above: Performed By: #### L CBCD ####[address] [address] Erythrocyte distribution width Auto Ratio (RBC) 12.7 % Normal 11.5-15.9 [facility] [place] [facility] Comment on above: Performed By: #### L CBCD ####[address] [address] Hematocrit Auto Volume Fraction (Bld) 41.3 % Low 42.0-52.0 [facility] [place] [facility] Comment on above: Performed By: #### L CBCD ####[place] [address] Hemoglobin mass conc (Bld) 13.7 g/dL Low 14.0-18.0 [facility] [place] [facility] Comment on above: Performed By: #### L CBCD ####[place] [address] Lymphocytes Auto #/vol (Bld) 0.51 thou/cmm Low 1.50-3.65 [facility] [place] [facility] Comment on above: Performed By: #### L CBCD ####[address] [address] Lymphocytes/100 WBC Auto (Bld) 10.2 % Normal [facility] [place] [facility] Comment on above: Performed By: #### L CBCD ####[address] [address] MCH Auto Entitic mass (RBC) 30.4 pg Normal 27.0-31.0 [facility] [place] [facility] Comment on above: Performed By: #### L CBCD ####[place] [address] MCHC Auto mass conc (RBC) 33.2 % Normal 32.0-36.0 [facility] [place] [facility] Comment on above: Performed By: #### L CBCD ####[address] [address] MCV Auto Entitic volume (RBC) 91.8 fL Normal 80.0-94.0 [facility] [place] [facility] Comment on above: Performed By: #### L CBCD ####[address] [address] Monocytes/100 WBC Auto (Bld) 9.0 % Normal [facility] [place] [facility] Comment on above: Performed By: #### L CBCD ####[place] [address] Platelet mean volume Auto Entitic volume (Bld) 10.9 fL High 7.1-10.5 [facility] [place] [facility] Comment on above: Performed By: #### L CBCD ####[place] [address] Platelets Auto #/vol (Bld) 155 thou/cmm Normal 150-400 [facility] [place] [facility] Comment on above: Performed By: #### L CBCD ####[place] [address] RBC Auto #/vol (Bld) 4.50 mil/cmm Low 4.60-6.20 [facility] Comment on above: Performed By: #### L CBCD ####[place] [address] Seg Neutrophil 80.6 % Normal [facility] Comment on above: Performed By: #### L CBCD ####[place] [address] WBC Auto #/vol (Bld) 5.0 thou/cmm Normal 4.8-10.8 [facility] Comment on above: Performed By: #### L CBCD ####[place] [address] MDRD eGFRon 01-03-2018 GFR/1.73 sq M predicted among non-blacks MDRD vol rate/area (S/P/Bld) 56.42 mL/min/{1.73_m2} Normal >60mL/min/1 .73m2 [facility] [place] [facility] Comment on above: Result Comment: If t he patient is , multiply the result by 1.210. Performed By: #### L GFR ####[place] [address] Troponin Ion 01-03-2018 Troponin I.cardiac mass conc ng/mL Normal <=0.07 [facility] [place] [facility] Comment on above: Performed By: #### L TRP ####[facility] [place] [address] Urinalysis Routineon 018 Amorphous Urates FEW Abnormal None [facility] Comment on above: Performed By: #### L URIN ####[facility] [place] [address] Appearance Nom (U) CLEAR Normal [facility] [place] [facility] Comment on above: Performed By: #### L URIN ####[facility] [place] [address] Bilirubin Urine Negative Normal Negative [facility] Comment on above: Performed By: #### L URIN ####[place] [address] Color Nom (U) YELLOW Normal [facility] Comment on above: Performed By: #### L URIN ####[place] [address] Ep Cells Urine 0-2 Normal 0-5 [facility] Comment on above: Performed By: #### L URIN ####[place] [address] Glucose Ql (U) Negative Normal Negative [facility] Comment on above: Performed By: #### L URIN ####[place] [address] Hemoglobin,Urine Negative Normal Negative [facility] Comment on above: Performed By: #### L URIN ####[place] [address] Ketone Urine Negative Normal Negative [facility] Comment on above: Performed By: #### L URIN ####[place] [address] Leukocytes Esterase Negative Normal Negative [facility] [place] [facility] Comment on above: Performed By: #### L URIN ####[place] [address] Nitrites Urine Negative Normal Negative [facility] Comment on above: Performed By: #### L URIN ####[place] [address] pH Test strip (U) 7.0 [pH] Normal 5.0-8.0 [facility] Comment on above: Performed By: #### L URIN ####[facility] [place], [place] [address] Protein Urine Negative Normal Negative [facility] Comment on above: Performed By: #### L URIN ####[facility] [place], [place] [address] RBC LM.HPF #/area (Urine sed) NONE Normal 0-3 [facility] Comment on above: Performed By: #### L URIN ####[place] [address] Specific [place], Ur 1.020 Normal 1.005-1.030 [facility] Comment on above: Performed By: #### L URIN ####[place] [address] [place],Ur 0.2 EU/dL Normal 0.0-1.0 [facility] Comment on above: Performed By: #### L URIN ####[address] [address] WBC LM.HPF #/area (Urine sed) 0-2 Normal 0-5 [facility] Comment on above: Performed By: #### L URIN ####[address] [address] Vital Signs Date Time Vital Sign Value Performing Clinician Kamila ramirez 02-26-2025 08:53-0400 Heart rate 57 /min Matthew BECKER Work Phone: [facility] 02-26-2025 08:44-0400 Body temperature 97.7 [degF] Matthew BECKER Work Phone: [facility] 02-26-2025 08:44-0400 Diastolic blood pressure 69 mm[Hg] Matthew BECKER Work Phone: [facility] 02-26-2025 08:44-0400 Respiratory rate 18 /min Matthew BECKER Work Phone: [facility] 02-26-2025 08:44-0400 SaO2% (BldA) [Mass fraction] 98 % Matthew Acosta PA Work Phone: [facility] 02-26-2025 08:44-0400 Systolic blood pressure 121 mm[Hg] Matthew Acosta PA Work Phone: [facility] 02-25-2025 08:04-0400 Body height 167.64 cm Matthew Acosta PA Work Phone: [facility] 02-25-2025 08:04-0400 Body weight 115.66 kg Matthew Acosta PA Work Phone: [facility] 02-24-2025 10:53-0400 Body mass index (BMI) [Ratio] 41.1 kg/m2 Matthew Acosta PA Work Phone: [facility] 02-16-2025 13:08-0400 Body mass index (BMI) [Ratio] 41.1 kg/m2 Matthew Acosta PA Work Phone: [facility] 02-16-2025 13:08-0400 Body weight 115.66 kg Matthew Acosta PA Work Phone: [facility] 02-16-2025 13:08-0400 Diastolic blood pressure 76 mm[Hg] Matthew Acosta PA Work Phone: [facility] 02-16-2025 13:08-0400 Heart rate 64 /min Matthew Acosta PA Work Phone: [facility] 02-16-2025 13:08-0400 Respiratory rate 16 /min Matthew Acosta PA Work Phone: [facility] 02-16-2025 13:08-0400 Systolic blood pressure 119 mm[Hg] Matthew Acosta PA Work Phone: [facility] Encounters Encounter Date Encounter Type Care Provider Facility Start: 03-29-2025 ambulatory Migel Lamont Facility:[facility] Start: 03-01-[facility] Start: 02-25-2025 End: 02-26-[address] [facility] Facility:[facility] Start: 02-16-2025 End: 02-16-[address] Gaston Cantu MD -[facility] Work Phone: Start: 02-16-2025 End: 02-16-2025 ambulatory Matthew BECKER Facility:[facility] Start: 01-24-2025 Non-patient / Non-visit Dr. Omayra BARRETO -[facility] Work Phone: Start: 01-24-2025 Registered Referred Matthew BECKER -[facility] Work Phone: Start: 01-24-2025 ambulatory Matthew BECKER Fac ility:[facility] Procedures Date Procedure Procedure Detail Performing Clinician Start: 02-26-2025 Estimated creatinine clearance Matthew BECKER Work Phone: Start: 02-25-2025 Coagulation time, activated Matthew BECKER Work Phone: Start: 01-24-2025 CT angiography of co ronary arteries Matthew BECKER Work Phone: Plan of Treatment Date Care Activity Detail Author Start: 03-01-2025 Non-patient / Non-visit Non-pa tient / Non-visit -[facility] Start: 02-26-2025 Patient discharge [facility] Start: 02-26-2025 [facility] Start: 02-26-2025 Non-patient / Non-visit Non-pa tient / Non-visit -[facility] Start: 02-25-2025 End: 02-26-2025 [facility] Start: 02-25-2025 Admission procedure [facility] Start: 02-25-2025 End: 02-26-2025 Evaluation and management of inpatient Agatston coronary artery calcium score greater than 400 -[facility] Work Phone: Start: 02-25-2025 Elevation of head of bed [facility] Start: 02-25-2025 Dietary regime [facility] Start: 02-25-2025 Log roll [facility] Start: 02-25-2025 Provision of activit y privileges [facility] Start: 02-25-2025 Cardiac monitoring [facility] Start: 02-25-2025 Cardiac rehabilitati on - phase 1 [facility] Start: 02-25-2025 Notification of physician [facility] Start: 02-25-2025 Oxygen therapy [facility] Start: 02-25-2025 Patient discharge [facility] Start: 02-25-2025 Pulse taking [facility] Start: 02-16-2025 End: 02-16-2025 Evaluation of diagnostic study results [facility] Payers Date Payer Category Payer Unknown [id number] 2025 Self-pay Unknown [id number] Unknown [id number] 2.16.8 [id number] Unknown [id number] 2.16.8 [id number] Unknown [id number] 2.16.8 [id number] Unknown [id number] 2.16.8 [id number] Social History Date Type Detail Facility Start: 02-25-2025 [facility] Sex Male [facility] Start: 1960 Sex Assigned At Male [facility] Medical Equipment Procedure Code Equipment Code Equipment Origin al Text Equipment Identifier Dates Drug-eluting coronary artery stent, [id number] lymer-coated ()[id number] FDA Start: 02-25-2025 Drug-eluting coronary artery stent, [id number] lymer-coated ()[id number] FDA Start: 02-25-2025 Goals Date Patient Goal Desired Activity /State Functional Status Date Assessment Result Facility 02-26-2025 Functional status Activity Ability Indepe kathrynnt [facility] Work Phone: Mental Status Date Assessment Result Facility 02-26-2025 Cognitive function Voice/Name [facility] Work Phone: Progress note 02-16-2025 Note Date & Type Note Facility 02-16-2025 Progress note [facility] Progress note 02-16-2025 Note Date & Type Note Facility 02-16-2025 Progress note Note Date/Time February 16, 2025 2:46pm [facility] [address] [place] [address] OFFICE VISIT Date of Service: 02/16/25 MR#: [id number] Acct: [id number] Name: ALEKSANDRA FINNEY Rep #: [id number] : 1960 Provider: Dr. Jessica Cantu MD Age/Sex: 64/M [place] [facility]: Signed HPI HPI History of Present Illness Details: The patient is a 64-year-old male with a history of diabetes mellitus and hypercholesterolemia, presenting for evaluation of elevated coronary artery calcium (CAC) score. The patient reports no current symptoms, including chest pain, dyspnea, or dizziness. He underwent a CT scan, which revealed a total CAC score of 1,411, indicating more calcium than 90% of individuals his age. He hasalso lost 5 of his friends recently from heart disease. He has a significant family history of cardiovascular disease. Among his siblings, one of heart failure, another has undergone double bypass surgeryand heart valve replacement, a third has had stents placed, and a fourth recently experienced a mild stroke. He denies chest pain he has had occasional palpitations he does not have any shortness of breath and no pedal edema. He works actively in the [employer] [place]. His physical exam is unremarkable his electrocardiogram demonstrates sinus rhythm with a rateof 64 bpm. He is currently on treatment for diabetes and hypercholesterolemia. Intake Vital Signs 02/16/25 13:08 Height 5 ft 6 in Weight: 255 lb BMI 41.1 BP 119/76 Blood Pressure Location Lt brachial Position Sitting Respiration 16 Pulse 64 Pulse Source Monitor Intake Visit Reasons: ABN CCTA (SELF) Train Gate Attendant Required: No Accompanied by: Significant Other Is patient in pain?: No Allergies No Known Allergies Allergy (Verified 02/16/25 13:02) Medications ?Medication ?Instructions ?Recorded ?Confirmed ?Type bupropion HCl 150 mg 24 hr tablet, 150 mg PO QAM 01/3102/16/25 History extended release (Wellbutrin XL) cholecalciferol (vitamin D3) 125 125 mcg PO QDAY 01/31 History mcg (5,000 unit) capsule coenzyme Q10 50 mg capsule (Co 50 mg PO QDAY 01/31/25 02/16/25 History Q-10) dapagliflozin propanediol 10 mg 10 mg PO QDAY 01/31/25 02/16/25 History tablet (Farxiga) fenofibrate 160 mg tablet 160 mg PO QDAY 01/31/2501/27 History levothyroxine 125 mcg tablet 125 mcg PO QDAY 01/31/25 02/16/25 History (Synthroid) mecobalamin (vitamin B12) 1,000 1,000 mcg PO QDAY 10/2002/16/25 History mcg chewable tablet metformin 1,000 mg tablet 1,000 mg PO BID 01/31/25 History pioglitazone 45 mg tablet 45 mg PO QDAY 01/31/2502/16 History prasterone (DHEA) 50 mg capsule 50 mg PO QDAY 01/31/25 02/16/25 History rosuvastatin 10 mg tablet 10 mg PO QDAY 01/31/2502/16 History aspirin 81 mg tablet,delayed 81 mg PO DAILY #90 tabs 1 02/16/25 Rx release (Adult Aspirin Regimen) ferrous sulfate 325 mg (65 mg 325 mg PO BID 02/16/25 1 History iron) tablet (Feosol) [facility] Medical History Depression GERD (gastroesophageal reflux disease) Hypothyroidism Hyperlipidemia Type 2 diabetes mellitus with other specified complication SOB (shortness of breath) Family history of heart disease Chest pain Surgical History No history of previous surgery Family History Brother CHF (congestive heart failure) Brother Myocardial infarction [place] x2 and many stents Brother S/P CABG x 2 Sister CVA (cerebral vascular accident) Social History Smoking Status: Never smoker alcohol intake: never substance use type: does not use ROS Const Const: Positive for fatigue; Negative for weakness, daytime sleepiness or difficulty sleeping ENT ENT: Negative for dizziness or Nosebleed/epistaxis Cardio Chest Pain: No Palpitations: Yes (fluttering ) Edema: None Resp Respiratory: Negative for SOB with activity, SOB at rest, SOB orthopnea\SOB lying down or Cough GI GI: Positive for heartburn; Negative nausea or vomiting Neuro Neuro: Negative for dizziness, lightheadedness, near syncope or weakness Endo Endo: Positive for fatigue Cardiology Exam Const Appearance: cooperative, healthy appearing, no acute distress, well developed and well groomed Nutritional Appearance: average body habitus and well nourished Orientation: alert, awake and oriented x3 Head Head: normal to inspection, normocephalic and atraumatic Ears: hearing grossly normal bilaterally and external ears normal Nose: external nose normal, nares normal, nasal mucous membranes and turbinates normal, septum normal and no nasal discharge Face and Sinus: face symmetric Mouth: oral mucosae normal, tongue normal, oropharynx normal and moist mucous membranes Teeth and gingiva: dentition normal Throat: posterior oropharynx normal, tonsils normal and uvula midline Eyes General: appearance normal, both eyes and all related structures Eyelids: eyelids normal Conjunctivae: conjunctivae normal Pupils: PERRL, normal by confrontation and accommodation normal EOM: EOM intact bilaterally Neck Neck: normal visual inspection, trachea midline and no JVD JVD: +5 Carotids: normal carotid upstroke and bounding pulses Chest Chest inspection: normal inspection of the chest, symmetric chest movement and normal respiratory effort Auscultation: Bilateral: Clear to Auscultation Cardio Palpation: normal PMI Rate: regular rate Rhythm: regular rhythm Heart sounds: S1 normal, S2 normal and normal, physiologic split S2; Negative rub, gallop or murmur GI GI: normal to inspection, soft, no hepatosplenomegaly and bowel sounds present Neuro General: patient alert, patient awake, patient oriented x3, gait normal, moves all extremities and no focal sensory deficit Skin Skin: no rashes or lesions noted Extremities Pulses: Normal: Right Femoral Pulse, Left Femoral Pulse, Right Dorsalis Pedis Pulse, Left Dorsalis Pedis Pulse, Right Posterior Tibial Pulse, Left Posterior Tibial Pulse, Right Radial Pulse and Left Radial Pulse Lower Extremity Edema: None: Bilateral Musculoskel Musculoskeletal: No joint tenderness Psych Psychological: normal affect Supplemental Info Supplemental Information Coronary Calcium Scoring 01/23/25 Findings Coronary Artery Left Main (LM): 263 Left Anterior Descending (LAD): 550 Left Circumflex (LCX): 0 Right Coronary Artery (RCA): 598 Total Agatston Score: 1,411 Conclusion: Extensive two-vessel atherosclerotic plaquing including the distal left main. Diagnostics: Coronary Angiography CT Past Visits: Cardiology Visit Today Assessment and Plan Assessment and Plan (1) Agatston coronary artery calcium score greater than 400: Status: Acute Plan: # Family history of ischemic heart disease and other diseases of the circulatorysystem (Z82.49) Coronary artery calcium score is 1,411, placing patient above the 90th percentile for age, indicating significant coronary atherosclerosis. Patient is asymptomatic, has diabetes, is on treatment for hypercholesterolemia, and has a strong family history of ischemic heart disease. - Recommended coronary angiogram to assess for obstructive coronary artery disease. - Explained rationale for angiogram, including potential for stent placement if significant lesions are found. - Discussed typical post-procedure recovery time (overnight to 2 days if no intervention needed, 2?3 days if stent placed). - Nurse to coordinate scheduling of angiogram. (2) Hyperlipidemia: Status: Acute Plan: He does have a history of hyperlipidemia with his lipid profile being excellent at this time with a total cholesterol 131 HDL of 43 LDL of 63 triglycerides 171. In July lipoprotein B level is 80 normal being less than 90. (3) Family history of heart disease: Status: Acute Plan: He does have a significant family history of cardiac disease as noted above and with him being a diabetic he is concerned that with his very high calcium score this needs to be tackled. He will continue with risk factor modification. Thank you for allowing me to participate in the care of your patient. Please don't hesitate to call if any issues arise. Orders: Orders 12 Lead EKG performed by [facility] Today E78.5 - Hyperlipidemia, unspecified, R06.02 - Shortness of breath, R07.9 - Chest pain, unspecified Basic Metabolic Profile (BMP) Today R93.1 - Abnormal findings on diagnostic imaging of heart and coronary circulation CBC W/Diff, Automated Today R93.1 - Abnormal findings on diagnostic imaging of heart and coronary circulation Medications: New aspirin (Adult Aspirin Regimen) 81 mg PO DAILY 90 tabs 3RF Plan Details Follow Up: 6 Months (sd) Coding Level of Care Code Off vis,new,level 4 Diagnoses Agatston coronary artery calcium score greater than 400 R93.1 Hyperlipidemia E78.5 Family history of heart disease Z82.49 Coding Level of Care Code Off vis,new,level 4 Diagnoses Agatston coronary artery calcium score greater than 400 R93.1 Hyperlipidemia E78.5 Family history of heart disease Z82.49 02/16/25 1611 <Electronically signed by Gaston Ann> Date _ Gaston Cantu MD Cosigner Signature: Date (if applicable) CC: EUGENIO Lorenzana ~ [facility] [employer] [facility] Work Phone: [facility] Discharge summary 10-23-2020 Note Date & Type Note Facility 10-23-2020 [facility] Discharge summary EMERGENCY DEPARTMENT DISCHARGE SUMMARY PATIENT NAME:ALEKSANDRA FINNEY AGE: 59 Years SEX: Male PHONE:[phone] DOS: 10/23/2020 11:08:00 : 1960 ATTENDING PHYSICIAN:Sendy Carney MD PCP: CHIEF COMPLAINT: Right abd/groin/testicular pain Allergies No Known Medication Allergies Problems Active Diabetes DISCHARGE DIAGNOSIS: Kidney stone DISCHARGE INSTRUCTIONS: Kidney Stones ED PHYSICIAN DOCUMENTATION: History of Present Illness The patient is a?59yo M with hx of DM p/w testicular and abdominal pain. ?Started this morning. ?He did vomit after eating.? A few days ago he had some hematemesis and thought he might of been passing a kidney stone. ?The pain resolved.? This morning the pain started again out of the blue. ?It is worse than he has ever had before. ?Its radiating into his right testicle. ?He feels like his testicle is going to explode.? He notes he is able to urinate.? His vomit did not have any?coffee grounds, or blood. ?He had a regular bowel movement today. ?He has had a history of a?hernia repair but no other surgeries. ?Does not drink alcohol. ? Review of Systems ROS: All other systems reviewed and are negative except as noted. ?Nursing triage notes?were?reviewed by me and I agree. ? Physical Exam ? ? 10/23/20 11:26:00 Pulse: ?74 BP: ?166/82 Respiration: ??20 Pulse Ox: ? ? ?97 Ox. Delivery: ?Room air ? CONSTITUTIONAL: Well-appearing. ?Well-nourished.? EYES: ?No conjunctival injection, no icterus HENT: ?Head atraumatic. External ears appear normal. ?External nose appears normal RESPIRATORY: ?Normal chest excursion with respiration, no stridor. CARDIOVASCULAR:?No cyanosis. GASTROINTESTINAL:?Non-distended , epigastric and RLQ tender to palpation, no rebound, no guarding NEUROLOGICAL: ?Awake, alert and oriented.? PSYCHOLOGICAL: ?The patient's mood and manner are appropriate. ? INTEGUMENTARY: ?Warm and dry. No rash?noted. MUSCULOSKELETAL:?? :?Right testicle is not edematous, but tender to palpation, no overlying skin changes. ?No palpable hernia. ? Medical Decision Making ? 59yo M with hx of DM p/w testicular and abdominal pain. ? Vitals are stable ? ? Differential diagnosis includes nephrolithiasis, hydronephrosis, obstruction,?testicular torsion, epididymitis ? Vitals are stable. ?He is feeling much better after IV pain medication. ?CT shows a 2 mm obstructing stone on the right.? Labs with slight elevation of creatinine, unsure what his?normal creatinine is. ?He was given IV fluid bolus. ?Blood sugar is 307.? Urine with no evidence of infection, but pending microscopy at this time. ? If patient's pain is under control, he will likely be able to be discharged home with?outpatient?urology follow up. He lives in [place] and would like to f/u with someone closer to home. ? Patient was given strict return precautions and verbalized understanding of the plan. ? Impression 1. 2mm obstructing kidney stone ? ? DISPOSITION: Time of Departure From ER 10/23/2020 16:35 Discharge/Transfer From ER Home 01 MEDICATION LISTS: CURRENT MEDICATION LIST acetaminophen-HYDROcodone (Henderson 325 mg-5 mg oral tablet) 1-2 By Mouth every 6 hours as needed for pain for 2 Days. Refills: 0. Diagnosis: Kidney stone [N20.0] ibuprofen (Motrin 600 mg oral tablet) 1 Tab(s) By Mouth 4 Times/Day for 5 Days. with food or milk. Refills: 0. ondansetron (Zofran ODT 4 mg oral tablet, disintegrating) 1 Tab(s) Under the Tongue every 6 hours as needed Nausea and Vomitting for 3 Days. Refills: 0. MEDICATIONS GIVEN DURING MEDICAL VISIT morphine 4 mg last dose given on 10/23/2020 at 12:05 Route: IV Push Administer over 3 - 5 minutes (for IVP). ondansetron 4 mg last dose given on 10/23/2020 at 12:05 Route: IV Push Administer over 2 minutes (for IV Push) hydromorphone 1 mg last dose given on 10/23/2020 at 13:13 Route: IV Push Administer over 2-5 minutes (for IVP) ketorolac 15 mg last dose given on 10/23/2020 at 13:54 Route: IV Push Do NOT give with other NSAID Medications Sodium Chloride 0.9% 1,000 mL last dose given on 10/23/2020 at 13:54 Route: Intravenous Bolus, Wide Open. LAB RESULTS: LABORATORY TESTS: Abnormal Lab Result(s): Date Order Results 10/23/2020 11:42 Lymphocyte Absolute L 0.69 thou/mcL 10/23/2020 11:42 Neutrophil H 85.2 % 10/23/2020 11:42 Lymphocyte L 9.8 % 10/23/2020 11:42 BUN H 22 mg/dL 10/23/2020 11:42 Glucose Level H 307 mg/dL 10/23/2020 11:42 Creatinine H 1.57 mg/dL 10/23/2020 13:17 Color Urine A STRAW 10/23/2020 13:17 Specific [place] Urine H 1.036 10/23/2020 13:17 Glucose Urine A 500MG/DL 10/23/2020 13:17 Blood Urine A 300/UL 10/23/2020 13:17 Protein Urine A 30MG/DL 10/23/2020 13:17 RBC Urine H 22 /hpf 10/23/2020 13:17 Mucous Urine A RARE RADIOLOGY: RADIOLOGY RESULT(S) (Please contact Medical Rec (more content not included)... [facility] Evaluation note Note Date & Type Note Facility Evaluation note Diagnosis Onset Date Resolution Agatston coronary artery calcium score greater than 400 acute February 16, 2025 12:48pm Family history of heart disease acute February 16, 2025 12:48pm Hyperlipidemia acute February 162024 12:48pm Agatston coronary artery calcium score greater than 400 acute February 25, 2025 11:10am Hyperlipidemia acute February 252024 11:10am CAD (coronary artery disease) February 25, 2025 chronic February 25, 2025 11:10am [facility] [employer] Work Phone: Reason for referral (narrative) Note Date & Type Note Facility Reason for referral (narrative) No reason for referral information available [facility] Work Phone: Summary Purpose Family History Relationship Condition Age at Onset Recorded Date/T stephen brother Congestive heart failure Unknown brother Myocardial infarction Unknown brother Status post double v essel coronary artery bypass Unknown sister Cerebrovascular accident (CVA) Unknown Advance Directives Advance Directive Response Recorded Date/ Time Advance Directives on File No Octob 2024 7:04am Living Will Yes February 25 7:04am Do you have a Healthcare Power of Ring Facer? Yes February 25, 2025 7:04am Name of Medical Power of Ring Facer Jodi Finney February 25, 2025 7:04am Advance Directives Yes February 25, 2025 7:04am Chief Complaint and Reason for Visit Chief Complaint Admit Date SCREENING January 24, 2025 6:40am CT CALCIUM SCORING January 24, 2025 6:44am ABN CCTA (SELF) February 16, 2025 1 2:48pm ABN CCTA February 25, 2025 1 1:10am ABN CCTA February 26, 2025 8 :10am Referral Order March 01, 2025 6 :14pm Reason for Visit Admit Date Agatston coronary artery calcium score g reater than 400 February 16, 2025 12:48pm Family history of heart disease February 16, 2025 12:48pm Hyperlipidemia February 16, 2025 1 2:48pm Agatston coronary artery calcium score g reater than 400 February 25, 2025 11:10am Hyperlipidemia February 25, 2025 1 1:10am CAD (coronary artery disease) February 252024 11:10am Additional Source Comments (unrecognized sect ion and content) No Status Records FoundNo Status Records FoundNo Status Records FoundNo Status Records FoundNo Status Records FoundNo Status Records Found INFORMATION SOURCE (unrecogn ized section and content) DATE CREATED AUTHOR 01/14/2018 [facility] DATE CREATED AUTHOR AUTHOR'S ORGANIZ ATION 09/29/2019 [facility] DATE CREATED AUTHOR AUTHOR'S ORGANIZ ATION 10/23/2020 [facility] DATE CREATED AUTHOR AUTHOR'S ORGANIZ ATION 03/20/2021 [facility] DATE CREATED AUTHOR AUTHOR'S ORGANIZ ATION 02/24/2025 [facility] DATE CREATED AUTHOR AUTHOR'S ORGANIZ ATION 03/10/2025 [facility] y Hospital Care Teams (unrecognized sec tion and content) Team Status: Active Member Role/Relationship Status Dates EUGENIO Roberts Primary care physician Active Team Status: Active Member Role/Relationship Status Dates EUGENIO Roberts Primary care physician Active Start: January 24, 2025 EUGENIO Roberts Attending physician Active Start: January 24, 2025 EUGENIO Roberts Referring Provider Active Start: January 24, 2025 Team Status: Active Member Role/Relationship Status Dates EUGENIO Roberts Primary care physician Active Start: January 24, 2025 Matthew BECKER PA Referring Provider Active Start: January 24, 2025 Dr. Gaston Cantu MD Attending physician Active Start: January 24, 2025 Team Status: Inactive Member Role/Relationship Status Dates Matthew BECKER PA Primary care physician Active Start: February 16, 2025 End: February 16, 2025 Mathtew BECKER PA Referring Provider Active Start: February 16, 2025 End: February 16, 2025 Dr. Gaston Cantu MD Attending physician Active Start: February 16, 2025 End: February 16, 2025 Team Status: Inactive Member Role/Relationship Status Dates EUGENIO Roberts Primary care physician Active Start: February 25, 2025 End: February 26, 2025 Dr. Gaston Cantu MD Admitting physician Active Start: February 25, 2025 End: February 26, 2025 Dr. Gaston Cantu MD Attending physician Active Start: February 25, 2025 End: February 26, 2025 Dr. Gaston Cantu MD Referring Provider Active S tart: February 25, 2025 End: February 26, 2025 Team Status: Active Member Role/Relationship Status Dates EUGENIO Roberts Primary care physician Active Start: February 26, 2025 Dr. Gaston Cantu MD Admitting physician Active Start: February 26, 2025 Dr. Gaston Cantu MD Attending physician Active Start: February 26, 2025 Dr. Gaston Cantu MD Referring Provider Active S tart: February 26, 2025 Dr. Gaston Cantu MD Nurse Practitioner Active S tart: February 26, 2025 Team Status: Active Member Role/Relationship Status Dates EUGENIO Roberts Primary care physician Active Start: March 01, 2025 Dr. Gaston Cantu MD Attending physician Active Start: March 01, 2025 FOR RECORDS PERTAINING TO PATIENTS WHO ARE OR HAVE BEEN ENROLLED IN A CHEMICAL DEPENDENCY/SUBSTANCEABUSE PROGRAM, SOME INFORMATION MAY BE OMITTED. This clinical summary was aggregated from multiple sources. Caution should be exercised in using it in the provision of clinical care. This summary normalizes information from multiple sources, and as a consequence, information in this document may materially change the coding, format and clinical context of patient data. In addition, data may be omitted in some cases. CLINICAL DECISIONS SHOULD BE BASED ON THE PRIMARY CLINICAL RECORDS. [facility] [employer] [facility]. provides no warranty or guarantee of the accuracy or completeness of information in this document.
[2025-03-29 12:10] LABS: ACT Activated Clotting Time 209 sec (74-137)
--- NOTE | 2025-03-29 13:40 | CRPHASE1_ITS ---
Patient Communication Patient Information Former Patient:: Phase I PHII Cardiac Rehab Discussed with Patient:: Yes Guide to Cardiac Rehab Given to Patient:: Yes Cardiac Rehab Facility Choice List Given to Patient:: Yes Communication to Cardiac Rehab Choice Program [facility] CR PHII:: Communication Given to CR Cable Technician:: Migel Miguel Phase II Cardiac Rehab:: Yes Sessions:: 36 sessions - 3 days/wk, 12 weeks Medical/Surgical History Medical History ID:: No Angina:: No CAD:: Yes Congestive Heart Failure:: No Cardiomyopathy:: No Valve Disease/Replacement:: No Pulmonary:: No COPD:: No Asthma:: No DHARA:: No Diabetes:: Yes Diabetes Type I:: No Diabetes Type II:: Yes Hypertension:: Yes Dyslipidemia:: No Arrhythmias:: No EPS:: No CVA/TIA: CEA:: No PE:: No DVT:: No PVD:: No PAD:: No Arthritis:: No GI:: No GERD:: No Cancer:: No Renal:: No Thyroid:: No Depression:: No Anxiety:: No Surgical History CABG: No PTCA:: Yes ICD:: No Pacemaker:: No Orthopedic:: No Cardiac Rehabilitation Info Program Information Cardiac Rehabilitation Program Information: Cardiac Rehab The cardiac rehab team at [facility] consists of highly skilled exercise physiologists, nurses, respiratory therapists and physicians working together with you. Our purpose is to help you have a full recovery and achieve the goals you set for yourself. Over the years many of our patients have returned to activities they assumed they would never do again! We can help restore your confidence and motivation to make lifestyle changes that can have a significant impact on your health and quality of life! We can help answer questions and concerns you may have about exercise, lifestyle, medications, diet, stress and anxiety which are common following a hospitalization. WE monitor ECG and vital signs during exercise and discuss your progress with you and report to your physician(s). Cardiac Rehab is proven to help reduce readmissions, improve functional capacity and lower recurrence of problems with your heart. Our Cardiac Rehab program is Certified by the [place] [employer]Vascular [employer] Pulmonary [employer] (AACVPR) and Accredited by the [place] [employer] through our [facility]. You can contact us at . We invite you to call us with your questions or to get started in our program. If you have other questions or concerns be sure to ask your physician/provider during your follow-up visit. WE look forward to seeing you!
--- NOTE | 2025-03-29 13:42 | CRPH1.INSTRU ---
General Education Discussed with Patient CAD and cardiac anatomy and function:: Patient communicates acknowledgment Explanation of diagnoses and procedures:: Patient communicates acknowledgment Sign/Symptoms of FL:: Patient communicates acknowledgment Antiplatelet therapy: Patient communicates acknowledgment Proper use of NTG-SL: Patient communicates acknowledgment Emergency procedures and activation of EMS: Patient communicates acknowledgment Compliance of all prescribed medications: Patient communicates acknowledgment Dyslipidemia Recommendations Recommendations Include:: Lipid profile not available Overweight/Obesity Risk Factors Patient Overweight/Obesity Risk Factors Are:: Overweight = 26-29 Recommendations Recommendations Include:: Exercise 5-7 times/week Response Code Overweight/Obesity:: Family communicates acknowledgment Hypertension Recommendations Recommendations Include:: BP <130/80 if diabetic Heart Disease Risk Factors Patient Heart Disease Risk Factors Are:: Previous cardiac event Recommendations Recommendations Include:: Educated family members of their risk Response Code Heart Disease Response Code:: Patient communicates acknowledgment Diabetes Risk Factors Patient Diabetes Risk Factors Are:: Elevated blood sugars Recommendations Recommendations Include:: Maintain fasting blood sugars 70-110 md/dL, Diabetic dietary guidelines and Decrease/maintain body weight Response Code Diabetes:: Patient communicates acknowledgment Metabolic Syndrome Recommendations Recommendations Include:: Patient is diabetic Response Code Metabolic Syndrome Response Code:: Patient communicates acknowledgment Sedentary Risk Factors Patient Sedentary Risk Factors Are:: Lack of regular exercise Recommendations Recommendations Include:: Benefits of regular exercise Response Code Sedentary Response Code:: Patient communicates acknowledgment Stress Risk Factors Patient Stress Risk Factors Are:: Patient denies stress as a risk factor
[2025-03-30 03:20] VITALS: BP 105/72; PULSE 56; RESP 16; TEMP 36.4; O2SAT 96
[2025-03-30 05:01] LABS: Hematocrit 39.5 % (40-54); Hemoglobin 13.4 g/dL (13.0-16.5); Mean Corp Hgb Conc 33.9 g/dL (32-36); Mean Corpuscular Volume 92.5 fL (80-94); Mean Platelet Vol. 10.6 fl (6.2-12.0); Platelet Count 169 K/mm3 (150-450); RBC Distribution Width CV 14.2 % (11.6-14.6); RBC Distribution Width SD 47.9 fl (35.1-43.9); Red Blood Count 4.27 M/mm3 (4.6-6.2); White Blood Count 4.0 K/mm3 (4.4-11.0)
[2025-03-30 05:33] LABS: AST(SGOT) 14 U/L (<=37); Alanine Aminotransfer ALT/SGPT 9 U/L (<=46); Albumin, Serum 3.9 g/dL (3.4-4.8); Alkaline Phosphatase 42 U/L (40-129); Anion Gap 12 (5-15); BUN 23 mg/dL (4-19); BUN/Creat Ratio 15.7 RATIO (10-20); Calcium,Total 8.8 mg/dL (7.6-11.0); Carbon Dioxide 22.3 mmol/L (21.0-32.0); Chloride 105 mmol/L (98-108); Estimated Creatinine Clearance 60.30 ml/min (50-250); Globulin 2.6 g/dL (2.2-4.2); Glucose 131 mg/dL (70-99); Potassium 4.0 mmol/L (3.3-5.1)
[2025-03-30] MEDS: 0.9% Saline Lock 10 ML Syringe IV (05:47)
[2025-03-30 08:44] VITALS: PULSE 60
[2025-03-30] MEDS: buPROPion (XL) 150 MG TABLET.XL PO (08:44)
[2025-03-30] MEDS: Aspirin E.C. 81 MG Tablet PO (08:44)
[2025-03-30] MEDS: Cholecalciferol (Vit D3) 125 MCG CAPSULE (5,000 UNITS) PO (08:44)
--- NOTE | 2025-03-30 10:02 | CASEMGMT ---
Patient has order for discharge. RN CM in to discuss needs at discharge. Patient denies needs or help at discharge. Patient had no further questions or concerns.
--- NOTE | 2025-03-30 10:24 | PHA.DC.MR.R ---
Pharmacy [place] Med Reconciliation Pharmacy Service has performed discharge medication reconciliation for this patient. The patient's discharge medication list was reviewed for discrepancies and discrepancies were resolved. Medications at Discharge Home Medications bupropion HCl 150 mg 24 hr tablet, extended release (Wellbutrin XL) 150 mg PO QAM depression 01/31/25 cholecalciferol (vitamin D3) 125 mcg (5,000 unit) capsule 125 mcg PO QDAY supplement 01/31/25 coenzyme Q10 50 mg capsule (Co Q-10) 50 mg PO QDAY supplement 01/31/25 dapagliflozin propanediol 10 mg tablet (Farxiga) 10 mg PO QDAY 01/31/25 fenofibrate 160 mg tablet 160 mg PO QDAY cholesterol 01/31/25 levothyroxine 125 mcg tablet (Synthroid) 125 mcg PO QDAY thyroid 01/31/25 mecobalamin (vitamin B12) 1,000 mcg chewable tablet 1,000 mcg PO QDAY supplement 01/31/25 metformin 1,000 mg tablet 1,000 mg PO BID 01/31/25 Held on 03/29/25. Instructions: Resume on 04/01/25. pioglitazone 45 mg tablet 45 mg PO QDAY 01/31/25 prasterone (DHEA) 50 mg capsule 50 mg PO QDAY 01/31/25 rosuvastatin 10 mg tablet 10 mg PO QDAY cholesterol 01/31/25 aspirin 81 mg tablet,delayed release (Adult Aspirin Regimen) 81 mg PO DAILY heart health #90 tabs 02/16/25 ferrous sulfate 325 mg (65 mg iron) tablet (Feosol) 325 mg PO BID supplement 02/16/25 clopidogrel 75 mg tablet 75 mg PO DAILY #30 tabs 02/25/25 metoprolol tartrate 25 mg tablet 12.5 mg (1/2 x 25 mg) PO BID #60 tabs 02/25/25 nitroglycerin 0.4 mg sublingual tablet 0.4 mg sublingual Q5M PRN Cardiac/Chest Pain #15 tabs 02/25/25
[2025-03-30] MEDS: Pioglitazone Hydrochloride 45 MG Tablet PO (10:38)
[2025-03-30 12:57] VITALS: BP 107/56; PULSE 58; RESP 15; TEMP 36.1; O2SAT 99
== END 2025-03-30 13:14 | disposition home or self-care (01) ==
LOC: CLSP 10:23 → PCU 10:52
PROVIDERS: Internal Medicine Cardiovascular Disease; Admitting Provider Internal Medicine Cardiovascular Disease; PCP Physician Assistant; Referring Provider Internal Medicine Cardiovascular Disease; Visit Provider Internal Medicine Cardiovascular Disease
DX: I25.10 Atherosclerotic heart disease of native coronary artery without angina pectoris (principal); E11.9 Type 2 diabetes mellitus without complications; E78.00 Pure hypercholesterolemia, unspecified; Z82.49 Family history of ischemic heart disease and other diseases of the circulatory system; K21.9 Gastro-esophageal reflux disease without esophagitis; R06.02 Shortness of breath; R94.39 Abnormal result of other cardiovascular function study; R07.9 Chest pain, unspecified; Z79.899 Other long term (current) drug therapy; Z79.02 Long term (current) use of antithrombotics/antiplatelets; Z79.82 Long term (current) use of aspirin; Z79.890 Hormone replacement therapy; E03.9 Hypothyroidism, unspecified
CPT/HCPCS: 36415; 80048; 80053; 85025; 85027; 85347; 92928; 93005; 96360; 96361; 99152; 99153; 99221; C1894; Q9967; A4216; C1725; C1769; C1874; C1887; C9600; G0378

== ENCOUNTER → 2025-04-01 | Outpatient (CLI) | payer OTHER, SELFPAY ==
--- NOTE | 2025-04-01 13:44 | ADUUE_ITS ---
Reason For Study Reason For Study: RUE Pain Post Heart Cath Right Velocities Rt Radial Artery measures 0.19cm x 0.20cm in short axis Rt Radial Veins appear compressible throughout Rt Radial Artery waveform appears Triphasic Rt Radial A PSV - 54.5 cm/s Rt Ulnar Artery measures 0.28cm x 0.28cm in short axis Rt Ulnar Veins appear compressible throughout Rt Ulnar Artery waveform appears Triphasic Rt Ulnar A PSV - 65.5 cm/s Rt Brachial Artery measures 0.47cm in long axis Rt Brachial Veins appear compressible throughout Rt Brachial Artery waveform appears Triphasic Rt Brachial A PSV - 72.1 cm/s Rt Basilic Vein appears compressible throughout Rt Cephalic Vein appears compressible throughout No evidence of pseudoaneurysm viewed in color or pulsed wave doppler. Procedure The exam was diagnostic. VL/US Art Duplex Unilat UP Extrem Interpretation Summary Right upper extremity arteries patent with normal velocities and waveforms thro ughout. Right upper extremity veins patent. No arteriovenous fistula or pseudoaneurysm identified. Ordering Physician: Gaston Cantu Referring Physician: Christopher Acosta Performed By: Piter Ly RVT
--- OUTSIDE RECORDS SUMMARY | 2025-04-01 14:04 | XMS RPT_ITS | CCD ---
Author Organization [facility] Care Team Providers Care Machine Silver Stripper Name Role Phone Gaston Cantu Attending Unavailable [...] Care Unavailable Pepe, Gaston Attending Unavailable Pepe, [place] Attending Unavailable Galehouse PA, Matthew Primary Care Unavailable Pepe, [place] Attending Unavailable [place]alehouse PA, Matthew Primary Care Unavailable Pepe, [place] Admitting Unavailable Pepe, Gaston Referring Unavailable Galehouse PAMatthew Primary Care Physician Matthew Lou Attending Physician [phone] [facility] Referring Provider Dr. Gaston Cantu MD [...] disease (4 sources) Atherosclerotic heart disease of [place] coronary artery without angina pectoris; Translations: [Coronary arteriosclerosis] Onset: 02-25-2025 03-01-2025 Chronic Comment on above: IVL/PTCA/CHRISTIE to mid LAD using Charlie Menard 3.0 X22 mm; CHRISTIE to proximal D1 using Kremmling Menard 2.5 X8mm. Consider staged PCI of prox RCA 02/25/25 Coronary atherosclerosis and other heart disease (1 source) Stented coronary artery; Translations: [Presence of coronary angioplasty implant and graft] Onset: 02-25-2025 03-01-2025 Episodic Comment on above: IVL/PTCA/CHRISTIE to mid LAD using Kremmling Menard 3.0 X22 mm; CHRISTIE to proximal D1 using Charlie Menard 2.5 X8mm. Consider staged PCI of prox [...] 12 Lead EKGon 02-26-2025 12 Lead EKG [facility] Cardiovascular Services [address] [place] [address] 12 Lead EKG 02/26/25 0512 MR#: [id number] Acct: [id number] Name: ALEKSANDRA FINNEY Rep #: [id number] : 1960 64 From: Gaston Cantu MD Attending Dr: Dr. Gaston Cantu MD Status: DIS I NO Ordering Dr: Migel Miguel MD Date: 02/26/25 Location: [facility] Sex: M C Admitted: 02/25/25 Test Reason [...] UNCONFIRMED Confirmed by GASTON CANTU MD ([id number]), continuity editor NATE HEARD ([id number]) on 02/28/2025 6:32:38 AM Referred By: Gaston Cantu Confirmed By: GASTON CANTU MD 02/28/25 0632 Date Gaston Cantu MD CC: EUGENIO Lorenzana; Dr. Migel Miguel MD; Dr. Gaston Cantu MD Signed Normal [facility] Anion gap in Serum or Plasma Ordered By: Migel Miguel on 02-26-2025 Anion gap [Moles/Vol] 9 mmol/L 5-15 [facility] BUN/creatinine ratioOrdered By: Migel Miguel on 02-26-2025 Urea nitrogen/Creatinine [Mass ratio] 14.7 mg/mg 10-20 [facility] Bilirubin, totalOrdered By: Migel Miguel on 02-26-2025 Bilirubin [Mass/Vol] 0.34 mg/dL 0.00-1.30 [facility] CBC-Complete Blood Cnt No Di ffon 02-26-2025 Erythrocyte distribution width (RBC) [Ratio] 13.6 % Normal 11.6-14.6 [facility] Comment on above: Performed By: #### L 100.0500, L500.4050 #### [facility] [address] [place], [address] Hematocrit (Bld) [Volume fraction] 38.3 % Low 40-54 [facility] Comment on above: Performed By: #### L 100.0500, L500.4050 #### [facility] [address] [place], [address] Hemoglobin (Bld) [Mass/Vol] 12.7 g/dL Low 13.0-16.5 [facility] Comment on above: Performed By: #### L 100.0500, L500.4050 #### [facility] [address] [place], [address] MCH (RBC) [Entitic mass] 30.8 pg Normal 27.0-32.0 [facility] Comment on above: Performed By: #### L 100.0500, L500.4050 #### [facility] [address] [place], [address] MCHC (RBC) [Mass/Vol] 33.2 g/dL Normal 32-36 [facility] Comment on above: Performed By: #### L 100.0500, L500.4050 #### [facility] [address] [place], [address] MCV (RBC) [Entitic vol] 93.0 fL Normal 80-94 [facility] Comment on above: Performed By: #### L 100.0500, L500.4050 #### [facility] [address] [place], [address] Platelet mean volume (Bld) [Entitic vol] 10.7 fL Normal 6.2-12.0 [facility] Comment on above: Performed By: #### L 100.0500, L500.4050 #### [facility] [address] [place], [address] Platelets (Bld) [#/Vol] 193 10*3/uL Normal 150-450 [facility] Comment on above: Performed By: #### L 100.0500, L500.4050 #### [facility] [address] [place], [address] RBC (Bld) [#/Vol] 4.12 10*6/uL Low 4.6-6.2 [facility] Comment on above: Performed By: #### L 100.0500, L500.4050 #### [facility] [address] [place], [address] RDW SD 46.5 fl High 35.1-43.9 [facility] Comment on above: Performed By: #### L 100.0500, L500.4050 #### [facility] [address] [place], [address] WBC (Bld) [#/Vol] 4.3 10*3/uL Low 4.4-11.0 [facility] Comment on above: Performed By: #### L 100.0500, L500.4050 #### [facility] [address] [place], [address] Carbon dioxide, total [Moles /volume] in Central venous bloodOrdered By: Migel Miguel on 02-26-2025 CO2 [Moles/Vol] 20.9 mmol/L Low 21.0-32.0 [facility] Chloride assayOrdered By: Eduard Miguel on 02-26-2025 Chloride [Moles/Vol] 107 mmol/L 98-108 [facility] Comprehensive Metabolic Prof ilon 02-26-2025 Albumin [Mass/Vol] 3.6 g/dL Normal 3.4-4.8 [facility] Comment on above: Performed By: #### L 100.0500, L500.4050 ####[facility] [address] [place], [address] Albumin/Globulin [Mass ratio] 1.3 {ratio} Normal 0.9-2.4 [facility] Comment on above: Performed By: #### L 100.0500, L500.4050 ####[facility] [address] [place], [address] ALK PHOS 44 U/L Normal 40-129 [facility] Comment on above: Performed By: #### L 100.0500, L500.4050 ####[facility] [address] [place], [address] ALT [Catalytic activity/Vol] 7 U/L Normal <=46 [facility] Comment on above: Performed By: #### L 100.0500, L500.4050 ####[facility] [address] [place], [address] AST [Catalytic activity/Vol] 17 U/L Normal <=37 [facility] Comment on above: Performed By: #### L 100.0500, L500.4050 ####[facility] [address] [place], [address] Bilirubin [Mass/Vol] 0.34 mg/dL Normal 0.00-1.30 [facility] Comment on above: Performed By: #### L 100.0500, L500.4050 ####[facility] [address] [place], [address] BUN/CRE 14.7 RATIO Normal 10-20 [facility] Comment on above: Performed By: #### L 100.0500, L500.4050 ####[facility] [address] [place], [address] Calcium [Mass/Vol] 8.5 mg/dL Normal 7.6-11.0 [facility] Comment on above: Performed By: #### L 100.0500, L500.4050 ####[facility] [address] [place], [address] Chloride [Moles/Vol] 107 mmol/L Normal 98-108 [facility] Comment on above: Performed By: #### L 100.0500, L500.4050 ####[facility] [address] [place], [address] CO2 [Moles/Vol] 20.9 mmol/L Low 21.0-32.0 [facility] Comment on above: Performed By: #### L 100.0500, L500.4050 ####[facility] [address] [place], [address] Creatinine [Mass/Vol] 1.21 mg/dL High 0.70-1.20 [facility] Comment on above: Performed By: #### L 100.0500, L500.4050 ####[facility] [address] [place], [address] ECRCL 73.75 ml/min Normal 50-250 [facility] Comment on above: Performed By: #### L 100.0500, L500.4050 ####[facility] [address] [place], [address] GAP 9 Normal 5-15 [facility] Comment on above: Performed By: #### L 100.0500, L500.4050 ####[facility] [address] [place], [address] GFR/1.73 sq M.predicted among non-blacks MDRD (S/P/Bld) [Vol rate/Area] 67 mL/min/{1.73_m2} Normal >60 [facility] Comment on above: Result Comment: mL/m in/1.73m2 CKD-EPI Creatinine Equation (2020) Performed By: #### L 100.0500, L500.4050 ####[facility] [address] [place], [address] Globulin (S) [Mass/Vol] 2.7 g/dL Normal 2.2-4.2 [facility] Comment on above: Performed By: #### L 100.0500, L500.4050 ####[facility] [address] [place], [address] Glucose [Mass/Vol] 178 mg/dL High 70-99 [facility] Comment on above: Performed By: #### L 100.0500, L500.4050 ####[facility] [address] [place], [address] Potassium [Moles/Vol] 3.9 mmol/L Normal 3.3-5.1 [facility] Comment on above: Performed By: #### L 100.0500, L500.4050 ####[facility] [address] [place], [address] Sodium [Moles/Vol] 137 mmol/L Normal 133-145 [facility] Comment on above: Performed By: #### L 100.0500, L500.4050 ####[facility] [address] [place], [address] T PROT 6.3 g/dL Normal 5.9-8.4 [facility] Comment on above: Performed By: #### L 100.0500, L500.4050 ####[facility] [address], [address] Urea nitrogen [Mass/Vol] 18 mg/dL Normal 4-19 [facility] Comment on above: Performed By: #### L 100.0500, L500.4050 ####[facility] [address] [place], [address] Discharge Instructionon Discharge Instruction [facility] Medical Records Department [address] [address] Instructions for Home/Discharge Instructions 02/26/25 0819 MR#: [id number] Acct: [id number] Name: ALEKSANDRA FINNEY Rep #: [id number] : 1960 64 From: Gaston Cantu MD [...] Up: Matthew Acosta PA [Primary Care Provider, [facility]] Disposition Discharge Orders: Discharge Patient (Routine); Ordered 02/26/25 Ordered By: Dr. Migel Miguel 02/26/25 0820 Gaston Cantu MD CC: EUGENIO Lorenzana Signed Normal [facility] Erythrocyte distribution wid th ratioOrdered By: Migel Miguel on 02-26-2025 Erythrocyte distribution width (RBC) [Ratio] 13.6 % 11.6-14.6 [facility] Erythrocyte distribution wid th standard deviationOrdered By: Migel Miguel on 02-26-2025 Erythrocyte distribution width (RBC) [Ratio] 46.5 fl High 35.1-43.9 [facility] Glomerular filtration rate ( GFR) estimation/1.73 sq m using serum, plasma, or whole bOrdered By: Migel Miguel on 02-26-2025 GFR/1.73 sq M.predicted among non-blacks MDRD (S/P/Bld) [Vol rate/Area] 67 mL/min/{1.73_m2} >60 [facility] Comment on above: mL/min/1.73m2 CKD-EP I Creatinine Equation (2020) Hematocrit Auto (Bld) [Volum e fraction]Ordered By: Migel Miguel on 02-26-2025 Hematocrit (Bld) [Volume fraction] 38.3 % Low 40-54 [facility] Hemoglobin measurementOrdere d By: Migel Miguel on 02-26-2025 Hemoglobin (Bld) [Mass/Vol] 12.7 g/dL Low 13.0-16.5 [facility] - Chemistry and C hemistry - challengeOrdered By: Migel Miguel on 02-26-2025 AST [Catalytic activity/Vol] 17 U/L <38 [facility] MCV (mean corpuscular volume ) determinationOrdered By: Migel Miguel on 02-26-2025 MCV (RBC) [Entitic vol] 93.0 fL 80-94 [facility] Mean corpuscular hemoglobin (MCH) determinationOrdered By: Migel Miguel on 02-26-2025 MCH (RBC) [Entitic mass] 30.8 pg 27.0-32.0 [facility] Mean corpuscular hemoglobin concentration (MCHC) determinationOrdered By: Migel Miguel on 02-26-2025 MCHC (RBC) [Mass/Vol] 33.2 g/dL 32-36 [facility] Mean platelet volume determi nationOrdered By: Migel Miguel on 02-26-2025 Platelet mean volume (Bld) [Entitic vol] 10.7 fL 6.2-12.0 [facility] Platelet countOrdered By: Eduard Miguel on 02-26-2025 Platelets (Bld) [#/Vol] 193 10*3/uL 150-450 [facility] Potassium measurement (mass/ volume)Ordered By: Migel Miguel on 02-26-2025 Potassium (Unsp spec) [Mass/Vol] 3.9 mmol/L 3.3-5.1 [facility] RBC Auto (Bld) [#/Vol]Ordere d By: Migel Miguel on 02-26-2025 RBC (Bld) [#/Vol] 4.12 10*6/uL Low 4.6-6.2 [facility] Serum creatinine measurement (mass/volume)Ordered By: Migel Miguel on 02-26-2025 Creatinine [Mass/Vol] 1.21 mg/dL High 0.70-1.20 [facility] Serum globulin measurementOr dered By: Migel Miguel on 02-26-2025 Globulin (S) [Mass/Vol] 2.7 g/dL 2.2-4.2 [facility] Serum glucose measurement (m ass/volume)Ordered By: Migel Miguel on 02-26-2025 Glucose [Mass/Vol] 178 mg/dL High 70-99 [facility] Serum or plasma alanine dennis otransferase (ALT) measurementOrdered By: Migel Miguel on 02-26-2025 ALT [Catalytic activity/Vol] 7 U/L <47 [facility] Serum or plasma albumin kena urement (mass/volume)Ordered By: Migel Miguel on 02-26-2025 Albumin [Mass/Vol] 3.6 g/dL 3.4-4.8 [facility] Serum or plasma albumin/glob ulin mass ratioOrdered By: Migel Miguel on 02-26-2025 Albumin/Globulin [Mass ratio] 1.3 {ratio} 0.9-2.4 [facility] Serum or plasma alkaline dariel sphatase measurementOrdered By: Migel Miguel on 02-26-2025 ALP [Catalytic activity/Vol] 44 U/L 40-129 [facility] Serum or plasma calcium kena urement (mass/volume)Ordered By: Migel Miguel on 02-26-2025 Calcium [Mass/Vol] 8.5 mg/dL 7.6-11.0 [facility] Serum or plasma urea nitroge n measurement (mass/volume)Ordered By: Migel Miguel on 02-26-2025 Urea nitrogen [Mass/Vol] 18 mg/dL 4-19 [facility] Sodium levelOrdered By: Chalo Migeul on 02-26-2025 Sodium [Moles/Vol] 137 mmol/L 133-145 [facility] Total proteinOrdered By: Melvin Miguel on 02-26-2025 Protein [Mass/Vol] 6.3 g/dL 5.9-8.4 [facility] White blood cell (WBC) count Ordered By: Migel Miguel on 02-26-2025 WBC (Bld) [#/Vol] 4.3 10*3/uL Low 4.4-11.0 [facility] 12 Lead EKGon 02-25-2025 12 Lead EKG [facility] Cardiovascular Services [address] [place] [address] 12 Lead EKG 02/25/25 1149 MR#: [id number] Acct: [id number] Name: ALEKSANDRA FINNEY #: [id number] : 1960 64 From: Gaston Cantu MD [...] found Confirmed by PEPE BARRETO, GASTON ([id number]), continuity editor NATE HEARD ([id number]) on 02/28/2025 6:33:03 AM Referred By: Gaston Cantu Confirmed By: GASTON CANTU MD 02/28/25 0633 Date Gaston Cantu MD CC: EUGENIO Lorenzana; Dr. Migel Miguel MD; Dr. Gaston Cantu MD Signed Normal [facility] ACT Activated Clotting Timeo n 02-25-2025 ACTk CLOT TIME 225 sec High 74-137 [facility] Comment on above: Performed By: #### L 9100.0100 #### [facility] [address] [place], [place], [address] ACTk CLOT TIME 230 sec High 74-137 [facility] Comment on above: Performed By: #### L 9100.0100 #### [facility] [address] [place], [address] Cardiac Cath Diagnosticon Cardiac Cath Diagnostic [facility] Imaging Services [address] [place] [address] Cardiac Cath Diagnostic MR#: [id number] Acct: [id number] Name: ALEKSANDRA FINNEY Rep #: [id number] : 1960 64 From: Gaston Cantu MD PCP: EUGENIO Lorenzana Status:ADM SHANNAN Patient Name: ALEKSANDRA FINNEY Study Date: 02/25/2025 Performing: Gaston Cantu MD Ht: 66 inches 167.64 cm : 1960 Wt: 255.3 lbs 115.67 kg Age: 64 Gender: male BSA: 2.22 PROCEDURE(S) PERFORMED DC01-(45150)LHC/COR/LV IC11A-(96497)CORONARY INTRAVASCULAR LITHOTRIPSY IC12-(04886/C9600)CHRISTIE W/WO PTCA, SINGLE CORONARY ARTERY IC13-(21862/C9600)CHRISTIE W/WO PTCA, EACH ADD'L ART, SAME MAJOR [...] multiple views using a 5 Fr. 4.0 [place] catheter. Right Coronary Artery selective angiography was [...] MD Date Dictated: 02/25/25836 Date Transcribed: 02/25/251748 Gas Stove Servicer Helper: [place] Signed Normal [facility] Cardiac Cath Interventionon 02-25-2025 Cardiac Cath Intervention [facility] Imaging Services [address] [place] [address] Cardiac Cath Intervention MR#: [id number] Acct: [id number] Name: ALEKSANDRA FINNEY Rep #: [id number] : 1960 64 From: Gaston Cantu MD PCP: EUGENIO Lorenzana Status:REG [facility] Patient Name: ALEKSANDRA FINNEY Study Date: 02/25/2025 Performing: Migel Miguel MD Ht: 66 inches 167.64 cm : 1960 Wt: 255.3 lbs 115.67 kg Age: 64 Gender: male BSA: 2.22 PROCEDURE(S) PERFORMED IC11A-(97572)CORONARY INTRAVASCULAR LITHOTRIPSY IC12-(28549/C9600)CHRISTIE W/WO PTCA, SINGLE CORONARY ARTERY IC13-(90796/C9600)CHRISTIE W/WO PTCA, EACH ADD'L ART, SAME MAJOR CLINICAL PROFILE AND CO-MORBIDITIES Indications: Suspected CAD Heart Failure: None Stress/Imaging Coronary Calcium Score: Yes Calcium Score: 1411 Calcium Score: 1411 CAD Presentations: No Sxs, no angina. CONCLUSIONS Successful IVL/PTCA/CHRISTIE Mid LAD using Kremmling Menard 3.0x22 mm. Ostial D2 silated with 2.0 mm balloon Successful CHRISTIE Prox D1 using Charlie Menard 2.5x8 mm RECOMMENDATIONS ASA Indefinitley P2Y12 inhibitors [...] multiple views using a 5 Fr. 4.0 [place] catheter. Right Coronary Artery selective angiography was [...] dilatation. Angiogram performed post balloon dilatation. Charlie Menard 3.0 x 22 Drug Eluting stent was inserted. Drug Eluting stent was advanced across the lesion in the LAD, mid. Angiogram performed pre stent deployment. NC Emerge 3.0 x 15 Balloon catheter was inserted. Balloon catheter was advanced across lesion in the LAD, mid. Angiogram performed post balloon dilatation. Guide wire was repositioned to the 1st Diagonal Kremmling Menard 2.5 x 8 Drug Eluting stent was [...] IVL Post Stenosis: 0 % Post intervention EKRRIE flow: 3 Lesion Devices: Cordis 6 Fr XB4.0 100cm Guide Catheter Terumo .014 180cm Runthrough Extra Floppy straight Terumo .014 180cm Runthrough Extra Floppy straight [employer] EMERGE MR 2.50x12 BALLOON Medtronic 3.0 x 22 CHARLIE FRONTIER CHRISTIE [employer] NC EMERGE MR 3.00x15 BALLOON [employer] NC EMERGE MR 2.00x08 BALLOON LESION SIT (more content not included)... Normal [facility] Discharge Instructionon 01-28 Discharge Instruction [facility] Medical Records Department [address] [place] [address] Instructions for Home/Discharge Instructions 02/25/25 1103 MR#: [id number] Acct: [id number] Name: ALEKSANDRA FINNEY Rep #: [id number] : 1960 64 From: Migel Miguel MD [...] Care Provider: Matthew Acosta Instructions Print Language: Serbian Discharge Orders/Prescriptions Prescriptions: New clopidogrel 75 mg [...] Miguel MD CC: EUGENIO Lorenzana Signed Normal [facility] ALBUMIN, RANDOM URINE W/CREA TININEon 02-22-2025 ALBUMIN, URINE 2.3 mg/dL Normal See Note: [facility] Comment on above: Result Comment: Refe rentaylor Range: Reference Range Not established Performed By: #### 4 96, 56161, 6399, 6517, 7600 #### [facility] [address], [address] [place] [address] Buffing Wheel Raker: Aamir Huerta MD ALBUMIN/CREATININE RATIO, RANDOM URINE [...] diagnostic category. Performed By: #### 4 96, 28031, 6399, 6517, 7600 #### [facility] [place] [address] Buffing Wheel Raker: Aamir Huerta MD Creatinine (U) [Mass/Vol] 72 mg/dL Normal 20-320 [facility] Comment on above: Performed By: #### 4 96, 96955, 63, 6517, 7600 #### [facility] [place] [address] Buffing Wheel Raker: Aamir Huerta MD CBC (INCLUDES DIFF/PLT)on Basophils (Bld) [#/Vol] 0.019 10*3/uL Normal 0-200 [facility] Comment on above: Performed By: #### 4 96, 43074, 6399, 6517, 7600 #### [facility] [place] [address] Buffing Wheel Raker: Aamir Huerta MD Basophils/100 WBC (Bld) 0.4 % Normal [facility] Comment on above: Performed By: #### 4 96, 31049, 6399, 6517, 7600 #### [facility] [address] Buffing Wheel Raker: Amair Huerta MD Eosinophils (Bld) [#/Vol] 0.052 10*3/uL Normal 15-500 [facility] Comment on above: Performed By: #### 4 96, 63633, 6399, 6517, 7600 #### [facility] of [place] [address] Buffing Wheel Raker: Aamir Huerta MD Eosinophils/100 WBC (Bld) 1.1 % Normal [facility] Comment on above: Performed By: #### 4 96, 83974, 6399, 6517, 7600 #### [facility] of [place] [address] Buffing Wheel Raker: Aamir Huerta MD Erythrocyte distribution width (RBC) [Ratio] 13.2 % Normal 11.0-15.0 [facility] Comment on above: Performed By: #### 4 96, 85960, 63, 6517, 7600 #### [facility] [place] [address] Buffing Wheel Raker: Aamir Huerta MD Hematocrit (Bld) [Volume fraction] 44.6 % Normal 38.5-50.0 [facility] Comment on above: Performed By: #### 4 96, 57115, 6399, 6517, 7600 #### [facility] [place] [address] Buffing Wheel Raker: Aamir Huerta MD Hemoglobin (Bld) [Mass/Vol] 14.7 g/dL Normal 13.2-17.1 [facility] Comment on above: Performed By: #### 4 96, 05805, 6399, 6517, 7600 #### [facility] [place] [address] Buffing Wheel Raker: Aamir Huerta MD Lymphocytes (Bld) [#/Vol] 0.912 10*3/uL Normal 850-3900 [facility] Comment on above: Performed By: #### 4 96, 88379, 6399, 6517, 7600 #### [facility] [place] [address] Buffing Wheel Raker: Aamir Huerta MD Lymphocytes/100 WBC (Bld) 19.4 % Normal [facility] Comment on above: Performed By: #### 4 96, 68858, 6399, 6517, 7600 #### [facility] [place] [address] Buffing Wheel Raker: Aamir Huerta MD MCH (RBC) [Entitic mass] 31.2 pg Normal 27.0-33.0 [facility] Comment on above: Performed By: #### 4 96, 91873, 6399, 6517, 7600 #### [facility] [place] [address] Buffing Wheel Raker: Aamir Huerta MD MCHC (RBC) [Mass/Vol] 33.0 [...] clinical condition. Performed By: #### 4 96, 94254, 63, 6517, 7600 #### [facility] [place] [address] Buffing Wheel Raker: Aamir Huerta MD MCV (RBC) [Entitic vol] 94.7 fL Normal 80.0-100.0 [facility] Comment on above: Performed By: #### 4 96, 49469, 6399, 6517, 7600 #### [facility] [place] [address] Buffing Wheel Raker: Aamir Huerta MD Monocytes (Bld) [#/Vol] 0.663 10*3/uL Normal 200-950 [facility] Comment on above: Performed By: #### 4 96, 59930, 6399, 6517, 7600 #### [facility] of [address] [address] Buffing Wheel Raker: Aamir Huerta MD Monocytes/100 WBC (Bld) 14.1 % Normal [facility] Comment on above: Performed By: #### 4 96, 92004, 6399, 6517, 7600 #### [facility] [place] [address] Buffing Wheel Raker: Aamir Huerta MD Neutrophils (Bld) [#/Vol] 3.055 10*3/uL Normal 9378-6047 [facility] Comment on above: Performed By: #### 4 96, 09592, 6399, 6517, 7600 #### [facility] [place] [address] Buffing Wheel Raker: Aamir Huerta MD Neutrophils/100 WBC (Bld) 65 % Normal [facility] Comment on above: Performed By: #### 4 96, 85715, 63, 6517, 7600 #### [facility] [place] [address] Buffing Wheel Raker: Aamir Huerta MD Platelet mean volume (Bld) [Entitic vol] 12.0 fL Normal 7.5-12.5 [facility] Comment on above: Performed By: #### 4 96, 27989, 6399, 6517, 7600 #### [facility] [place] [address] Buffing Wheel Raker: Aamir Huerta MD Platelets (Bld) [#/Vol] 187 10*3/uL Normal 140-400 [facility] Comment on above: Performed By: #### 4 96, 23111, 6399, 6517, 7600 #### [facility] of [place] [address] Buffing Wheel Raker: Aamir Huerta MD RBC (Bld) [#/Vol] 4.71 10*6/uL Normal 4.20-5.80 [facility] Comment on above: Performed By: #### 4 96, 58197, 6399, 6517, 7600 #### [facility] of [place] [address] Buffing Wheel Raker: Aamir Huerta MD WBC (Bld) [#/Vol] 4.7 10*3/uL Normal 3.8-10.8 [facility] Comment on above: Performed By: #### 4 96, 94258, 6399, 6517, 7600 #### [facility] [place] [address] Buffing Wheel Raker: Aamir Huerta MD [facility] METABOLIC [facility] 02-22-2025 Albumin [Mass/Vol] 4.4 g/dL Normal 3.6-5.1 [facility] Comment on above: Performed By: #### 4 96, 05708, 6399, 6517, 7600 #### [facility] [place] [address] Buffing Wheel Raker: Aamir Huerta MD Albumin/Globulin [Mass ratio] 1.6 {ratio} Normal 1.0-2.5 [facility] Comment on above: Performed By: #### 4 96, 44887, 6399, 6517, 7600 #### [facility] of [place] [address] Buffing Wheel Raker: Aamir Huerta MD ALP [Catalytic activity/Vol] 53 U/L Normal 35-144 [facility] Comment on above: Performed By: #### 4 96, 52916, 6399, 6517, 7600 #### [facility] of [place] [address] Buffing Wheel Raker: Aamir Huerta MD ALT [Catalytic activity/Vol] 10 U/L Normal 9-46 [facility] Comment on above: Performed By: #### 4 96, 18176, 6399, 6517, 7600 #### [facility] of [place] [address] Buffing Wheel Raker: Aamir Huerta MD AST [Catalytic activity/Vol] 14 U/L Normal 10-35 [facility] Comment on above: Performed By: #### 4 96, 49477, 6399, 6517, 7600 #### [facility] of [address], [address] [place] [address] Buffing Wheel Raker: Aamir Huerta MD Bilirubin [Mass/Vol] 0.6 mg/dL Normal 0.2-1.2 [facility] Comment on above: Performed By: #### 4 96, 28938, 6399, 6517, 7600 #### [facility] of [address], [address] [place] [address] Buffing Wheel Raker: Aamir Huerta MD BUN/CREATININE RATIO SEE NOTE: Normal 6-22 [facility] Comment on above: Result Comment: Not Reported: BUN and Creatinine are within reference range. Performed By: #### 4 96, 25353, 6399, 6517, 7600 #### [facility] of [place] [address] Buffing Wheel Raker: Aamir Huerta MD Calcium [Mass/Vol] 9.5 mg/dL Normal 8.6-10.3 [facility] Comment on above: Performed By: #### 4 96, 64919, 6399, 6517, 7600 #### [facility] [place] [address] Buffing Wheel Raker: Aamir Huerta MD Chloride [Moles/Vol] 102 mmol/L Normal 98-110 [facility] Comment on above: Performed By: #### 4 96, 76066, 6399, 6517, 7600 #### [facility] of [place] [address] Buffing Wheel Raker: Aamir Huerta MD CO2 [Moles/Vol] 25 mmol/L Normal 20-32 [facility] Comment on above: Performed By: #### 4 96, 66378, 6399, 6517, 7600 #### [facility] of [place] [address] Buffing Wheel Raker: Aamir Huerta MD Creatinine [Mass/Vol] 1.29 mg/dL Normal 0.70-1.[address] [facility] Comment on above: Performed By: #### 4 96, 51059, 63, 6517, 7600 #### [facility] [place] [address] Buffing Wheel Raker: Aamir Huerta MD GFR/1.73 sq M.predicted among non-blacks MDRD (S/P/Bld) [Vol rate/Area] 62 mL/min/{1.73_m2} Normal > OR = 60 [facility] Comment on above: Performed By: #### 4 96, 56434, 63, 6517, 7600 #### [facility] [place] [address] Buffing Wheel Raker: Aamir Huerta MD Globulin (S) [Mass/Vol] 2.8 g/dL Normal 1.9-3.7 [facility] Comment on above: Performed By: #### 4 96, 21605, 63, 6517, 7600 #### [facility] [place] [address] Buffing Wheel Raker: Aamir Huerta MD Glucose [Mass/Vol] 154 mg/dL High 65-99 [facility] Comment on above: Result Comment: Fasting reference interval For someone without known diabetes, a glucose value >125 mg/dL indicates that they may have diabetes and this should be confirmed with a follow-up test. Performed By: #### 4 96, 97754, 63, 6517, 7600 #### [facility] [place] [address] Buffing Wheel Raker: Aamir Huerta MD Potassium [Moles/Vol] 4.2 mmol/L Normal 3.5-5.[address] [facility] Comment on above: Performed By: #### 4 96, 75815, 6399, 6517, 7600 #### [facility] [place] [address] Buffing Wheel Raker: Aamir Huerta MD Protein [Mass/Vol] 7.2 g/dL Normal 6.1-8.1 [facility] Comment on above: Performed By: #### 4 96, 08590, 6399, 6517, 7600 #### [facility] [address], [address] [place] [address] Buffing Wheel Raker: Aamir Huerta MD Sodium [Moles/Vol] 135 mmol/L Normal 135-146 [facility] Comment on above: Performed By: #### 4 96, 98764, 6399, 6517, 7600 #### [facility] [place] [address] Buffing Wheel Raker: Aamir Huerta MD Urea nitrogen [Mass/Vol] 17 mg/dL Normal 7-25 [facility] Comment on above: Performed By: #### 4 96, 81257, 6399, 6517, 7600 #### [facility] [place] [address] Buffing Wheel Raker: Aamir Huerta MD LIPID PANEL, [place] [address] Cholesterol [Mass/Vol] 136 mg/dL Normal <200 [facility] Comment on above: Order Comment: FASTI NG:YESFASTING: YES Performed By: #### 4 96, 95079, 6399, 6517, 7600 #### [facility] [place] [address] Buffing Wheel Raker: Aamir Huerta MD Cholesterol in HDL [Mass/Vol] 47 mg/dL Normal > OR = 40 [facility] Comment on above: Order Comment: FASTI NG:YESFASTING: YES Performed By: #### 4 96, 98690, 6399, 6517, 7600 #### [facility] [place] [address] Buffing Wheel Raker: Aamir Huerta MD Cholesterol in LDL [Mass/Vol] [...] Anton NORWOOD et al. JORGE A. 2013;310(19): 7936-9738 (http://education.[employer]/faq/KKW727) Performed By: #### 4 96, 88749, 6399, 6517, 7600 #### [facility] [address], [address] [place] [address] Buffing Wheel Raker: Aamir Huerta MD Cholesterol.total/Ashley sterol in HDL [Mass ratio] 2.9 {ratio} Normal <5.0 [facility] Comment on above: Order Comment: FASTI NG:YESFASTING: YES Performed By: #### 4 96, 02237, 6399, 6517, 7600 #### [facility] [address], [address] [place] [address] Buffing Wheel Raker: Aamir Huerta MD NON HDL CHOLESTEROL 89 mg/dL (calc) Normal <130 [facility] Comment on above: Order Comment: FASTI NG:YESFASTING: YES Result Comment: For patients with diabetes plus 1 major ASCVD risk factor, treating to a non-HDL-C goal of <100 mg/dL (LDL-C of <70 mg/dL) is considered a therapeutic option. Performed By: #### 4 96, 06470, 6399, 6517, 7600 #### [facility] [place] [address] Buffing Wheel Raker: Aamir Huerta MD Triglyceride [Mass/Vol] 160 mg/dL High <150 [facility] Comment on above: Order Comment: FASTI NG:YESFASTING: YES Performed By: #### 4 96, 57671, 6399, 6517, 7600 #### [facility] [place] [address] Buffing Wheel Raker: Aamir Huerta MD PSA, TOTALon 02-22-2025 PSA, [...] of disease. Performed By: #### 4 96, 20081, 6399, 6517, 7600 #### [facility] [address], [address] [place] [address] Buffing Wheel Raker: Aamir Huerta MD TEST AUTHORIZATIONon 02-22-2 025 CLIENT CONTACT: Normal [employer] Comment on above: Performed By: #### 4 96, 02789, 6399, 6517, 7600 #### [facility] [address], [address] [place] [address] Buffing Wheel Raker: Aamir Huerta MD COMMENT Normal [employer] Comment on above: Result Comment: Plea se have the ordering physician or his or her authorized new accounts representative sign a copy of this report and promptly return it by faxing it to: [phone] or by returning the form to your chassis driver. Performed By: #### 4 96, 93495, 6399, 6517, 7600 #### [facility] [address], [address] [place] [address] Buffing Wheel Raker: Aamir Huerta MD REPORT ALWAYS MESSAGE SIGNATURE Normal [employer] Comment on above: Result Comment: The laboratory testing on this patient was verbally requested or confirmed by the ordering physician or his or her authorized new accounts representative after contact with an employee of [employer]. Federal regulations require that we maintain on file written authorization for all laboratory testing. Accordingly we are asking that the ordering physician or his or her authorized new accounts representative sign a copy of this report and promptly return it to the client consultant. Signature: Performed By: #### 4 96, 13476, 6399, 6517, 7600 #### [facility] [address], [address] [place] [address] Buffing Wheel Raker: Aamir Huerta MD TEST CODE: 6399 Normal [facility] Comment on above: Performed By: #### 4 96, 47205, 6399, 6517, 7600 #### [facility] of [facility] [address], [address] [place], [place] [address] Buffing Wheel Raker: Aamir Huerta MD TEST NAME: CBC Normal [facility] Comment on above: Performed By: #### 4 96, 75015, 6399, 6517, 7600 #### [facility] of [facility] [address], [address] [place] [address] Buffing Wheel Raker: Aamir Huerta MD Absolute lymphocyte countOrd ered By: Gaston Cantu on 02-16-2025 Lymphocytes Auto (Unsp spec) [#/Vol] 1.25 10*3/uL 0.83-4.51 [facility] Absolute neutrophil countOrd ered By: Gaston Cantu on 02-16-2025 Neutrophils (Bld) [#/Vol] 2.8 10*3/uL 2.0-7.7 [facility] Automated lymphocyte count a s percentage of total leukocytesOrdered By: Gaston Cantu on 02-16-2025 Lymphocytes/100 WBC Auto (Unsp spec) 27.1 % 19-41 [facility] Basic Metabolic Profile (BMP )on 02-16-2025 BUN/CRE 16.1 RATIO Normal 10-20 [facility] Comment on above: Performed By: #### L 500.2500, L100.0100 #### [facility] [address] [place], [address] Calcium [Mass/Vol] 9.4 mg/dL Normal 7.6-11.0 [facility] Comment on above: Performed By: #### L 500.2500, L100.0100 #### [facility] [address] [place], [address] Chloride [Moles/Vol] 102 mmol/L Normal 98-108 [facility] Comment on above: Performed By: #### L 500.2500, L100.0100 #### [facility] [address] [place], [address] CO2 [Moles/Vol] 25.3 mmol/L Normal 21.0-32.0 [facility] Comment on above: Performed By: #### L 500.2500, L100.0100 #### [facility] [address] [place], [address] Creatinine [Mass/Vol] 1.39 mg/dL High 0.70-1.20 [facility] Comment on above: Performed By: #### L 500.2500, L100.0100 #### [facility] [address] [place], [address] GAP 11 Normal 5-15 [facility] Comment on above: Performed By: #### L 500.2500, L100.0100 #### [facility] [address] [place], [address] GFR/1.73 sq M.predicted among non-blacks MDRD (S/P/Bld) [Vol rate/Area] 57 mL/min/{1.73_m2} Low >60 [facility] Comment on above: Result Comment: mL/m in/1.73m2 CKD-EPI Creatinine Equation (2020) Performed By: #### L 500.2500, L100.0100 #### [facility] [address] [place], [address] Glucose [Mass/Vol] 136 mg/dL High 70-99 [facility] Comment on above: Performed By: #### L 500.2500, L100.0100 #### [facility] [address] [place], [address] Potassium [Moles/Vol] 4.6 mmol/L Normal 3.3-5.1 [facility] Comment on above: Performed By: #### L 500.2500, L100.0100 #### [facility] [address] [place], [address] Sodium [Moles/Vol] 138 mmol/L Normal 133-145 [facility] Comment on above: Performed By: #### L 500.2500, L100.0100 #### [facility] [address] [place], [address] Urea nitrogen [Mass/Vol] 22 mg/dL High 4-19 [facility] Comment on above: Performed By: #### L 500.2500, L100.0100 #### [facility] [address] [place], [address] Basophil percentageOrdered B y: Gaston Pepe on 02-16-2025 Basophils/100 WBC (Bld) 0.4 % 0-1 [facility] CBC W/Diff, Automatedon 01-27 Absolute Lymph 1.25 X10 3/uL Normal 0.83-4.51 [facility] Comment on above: Performed By: #### L 500.2500, L100.0100 #### [facility] [address] [place], [address] Absolute Neut 2.8 X10 3/uL Normal 2.0-7.7 [facility] Comment on above: Performed By: #### L 500.2500, L100.0100 #### [facility] [address] [place], [address] Basophils/100 WBC (Bld) 0.4 % Normal 0-1 [facility] Comment on above: Performed By: #### L 500.2500, L100.0100 #### [facility] [address] [place], [address] Eosinophils/100 WBC (Bld) 2.4 % Normal 0-5 [facility] Comment on above: Performed By: #### L 500.2500, L100.0100 #### [facility] [address] [place], [address] Erythrocyte distribution width (RBC) [Ratio] 13.5 % Normal 11.6-14.6 [facility] Comment on above: Performed By: #### L 500.2500, L100.0100 #### [facility] [address] [place], [address] Hematocrit (Bld) [Volume fraction] 42.1 % Normal 40-54 [facility] Comment on above: Performed By: #### L 500.2500, L100.0100 #### [facility] [address] [place], [address] Hemoglobin (Bld) [Mass/Vol] 13.8 g/dL Normal 13.0-16.5 [facility] Comment on above: Performed By: #### L 500.2500, L100.0100 #### [facility] [address] [place], [address] IG% 0.400 Normal 0.0-0.9 [facility] Comment on above: Result Comment: IG% - Immature Granulocytes (promyelocytes, myelocytes and metamyelocytes) > 1% indicates that a LEFT SHIFT is Present. Performed By: #### L 500.2500, L100.0100 #### [facility] [address] [place], [address] Lymphocytes/100 WBC (Bld) 27.1 % Normal 19-41 [facility] Comment on above: Performed By: #### L 500.2500, L100.0100 #### [facility] [address] [place], [address] MCH (RBC) [Entitic mass] 30.9 pg Normal 27.0-32.0 [facility] Comment on above: Performed By: #### L 500.2500, L100.0100 #### [facility] [address] [place], [address] MCHC (RBC) [Mass/Vol] 32.8 g/dL Normal 32-36 [facility] Comment on above: Performed By: #### L 500.2500, L100.0100 #### [facility] [address] [place], [address] MCV (RBC) [Entitic vol] 94.4 fL High 80-94 [facility] Comment on above: Performed By: #### L 500.2500, L100.0100 #### [facility] [address] [place], [address] Monocytes/100 WBC (Bld) 10.0 % Normal 0-10 [facility] Comment on above: Performed By: #### L 500.2500, L100.0100 #### [facility] [address] [place], [address] Neutrophils/100 WBC (Bld) 59.7 % Normal 47-70 [facility] Comment on above: Performed By: #### L 500.2500, L100.0100 #### [facility] [address] [place], [address] Nucleated RBC (Bld) [#/Vol] 0 10*3/uL Normal 0-5 [facility] Comment on above: Performed By: #### L 500.2500, L100.0100 #### [facility] [address] [place], [address] Platelet mean volume (Bld) [Entitic vol] 11.4 fL Normal 6.2-12.0 [facility] Comment on above: Performed By: #### L 500.2500, L100.0100 #### [facility] [address] [place], [address] Platelets (Bld) [#/Vol] 209 10*3/uL Normal 150-450 [facility] Comment on above: Performed By: #### L 500.2500, L100.0100 #### [facility] [address] [place], [address] RBC (Bld) [#/Vol] 4.46 10*6/uL Low 4.6-6.2 [facility] Comment on above: Performed By: #### L 500.2500, L100.0100 #### [facility] [address] [place], [address] RDW SD 47.3 fl High 35.1-43.9 [facility] Comment on above: Performed By: #### L 500.2500, L100.0100 #### [facility] [address] [place], [address] WBC (Bld) [#/Vol] 4.6 10*3/uL Normal 4.4-11.0 [facility] Comment on above: Performed By: #### L 500.2500, L100.0100 #### [facility] [address] [place], [address] Cardiology Visit Reporton Cardiology Visit Report [facility] [address] [place], [place] [address] OFFICE VISIT Date of Service: 02/16/25 MR#: [id number] Acct: [id number] Name: ALEKSANDRA FINNEY Rep #: [id number] : 1960 Provider: Dr. Gaston Cantu MD Age/Sex: 64/M [place] [facility] [place]: Signed HPI HPI History of Present [...] pedal edema. He works actively in the [employer]. 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 Normal [facility] Eosinophil percentageOrdered By: Gaston Cantu on 02-16-2025 Eosinophils/100 WBC (Bld) 2.4 % 0-5 [facility] Immature granulocytes/100 WB C Auto (Bld)Ordered By: Gaston Cantu on 02-16-2025 Immature granulocytes/100 WBC (Bld) 0.400 % 0.0-0.9 [facility] Comment on above: IG% - Immature Granu locytes (promyelocytes, myelocytes and metamyelocytes) > 1% indicates that a LEFT SHIFT is Present. Monocyte percentageOrdered B y: Gaston Pepe on 02-16-2025 Monocytes/100 WBC (Bld) 10.0 % 0-10 [facility] Neutrophil percentageOrdered By: Gaston Pepe on 02-16-2025 Neutrophils/100 WBC (Bld) 59.7 % 47-70 [facility] Nucleated red blood cell per centageOrdered By: [place] Pepe on 02-16-2025 Nucleated RBC/100 WBC (Bld) [Ratio] 0 % 0-5 [facility] Coronary Angiography CTon Coronary Angiography CT [facility] [address] [place] [address] 01/24/25 1838 MR#: [id number] Acct: [id number] Name: ALEKSANDRA FINNEY Rep #: [id number] : 1960 64 From: Gaston Cantu MD [...] Lorenzana; Dr. Gaston Cantu MD Signed Normal [facility] Limited Chest CT Cardiac Onl yon 01-24-[address] Cardiac Only [facility] [address] [place] [id number] Cardiac Only MR#: [id number] Acct: [id number] Name: ALEKSANDRA FINNEY Rep #: [id number] : 1960 M 64 From: [place] PCP: EUGENIO Lorenzana Status: REG REF Study: Limited Chest CT Cardiac Only Date of Exam: Exam# [id number] Ordering Dr: Matthew Acosta PROCEDURE: LIMITED CHEST [...] abdomen demonstrates no significant abnormality. 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: Signed Normal [facility] ALBUMIN, RANDOM URINE W/CREA SYLVIEon 01-05-2025 ALBUMIN, URINE 1.4 mg/dL Normal See Note: [facility] Comment on above: Order Comment: FASTI NG:YES FASTING: YES Result Comment: Refe rence Range: Reference Range Not established Performed By: #### 6 517, 6399, 1005, 496, 899, 08528 #### [facility] [address], [address] [place], [place] [address] Buffing Wheel Raker: Aamir Huerta MD #### 5224 #### [facility]/[place] [id number] [facility] [place] Buffing Wheel Raker: Jasvir Lundberg M.D.,PhD ALBUMIN/CREATININE RATIO, RANDOM URINE [...] #### 6 517, 6399, 1005, 496, 899, 67770 #### [facility] [address], [address] [place], [place] [address] Buffing Wheel Raker: Aamir Huerta MD #### 5224 #### [facility]/[place] [address] [place] Buffing Wheel Raker: Jasvir Lundberg M.D.,PhD Creatinine (U) [Mass/Vol] 82 mg/dL Normal 20-320 [facility] Comment on above: Order Comment: FASTI NG:YES FASTING: YES Performed By: #### 6 517, 6399, 1005, 496, 899, 95767 #### [facility] [address], [address] [place] [address] Buffing Wheel Raker: Aamir Huerta MD #### 5224 #### [facility]/[place] [address] [place] Buffing Wheel Raker: Jasvir Lundberg M.D.,PhD APOLIPOPROTEIN Bon Apolipoprotein B [...] al. 2019.doi:10.1016/j.jacc.2018.11.002; Berenice Y, et al. 2020. doi:10.[facility]8/[id number]). Performed By: #### 4 96, 57202, 6399, 6517, 7600 #### [facility] [address], [address] [place] [address] Buffing Wheel Raker: Aamir Huerta MD CBC (INCLUDES DIFF/PLT)on Basophils (Bld) [#/Vol] 0.01 10*3/uL Normal 0-200 [facility] Comment on above: Performed By: #### 6 517, 6399, 1005, 496, 899, 53118 #### [facility] [address], [address] [place] [address] Buffing Wheel Raker: Aamir Huerta MD #### 5224 #### [facility] [address] [place] Buffing Wheel Raker: Jasvir Lundberg M.D.,PhD Basophils/100 WBC (Bld) 0.2 % Normal [facility] Comment on above: Performed By: #### 6 517, 6399, 1005, 496, 899, 68895 #### [facility] of [address], [address] [place], [place] [address] Buffing Wheel Raker: Aamir Huerta MD #### 5224 #### [facility]/[address] [place], [place] Buffing Wheel Raker: Jasvir Lundberg M.D.,PhD Eosinophils (Bld) [#/Vol] 0.078 10*3/uL Normal 15-500 [facility] Comment on above: Performed By: #### 6 517, 6399, 1005, 496, 899, 83319 #### [facility] of [address], [address] [place] [address] Buffing Wheel Raker: Aamir Huerta MD #### 5224 #### [facility]/[address] [place], [place] Buffing Wheel Raker: Jasvir Lundberg M.D.,PhD Eosinophils/100 WBC (Bld) 1.5 % Normal [facility] Comment on above: Performed By: #### 6 517, 6399, 1005, 496, 899, 69596 #### [facility] of [address], [address] [place], [place] [address] Buffing Wheel Raker: Aamir Huerta MD #### 5224 #### [facility]/[address] [place], [place] Buffing Wheel Raker: Jasvir Lundberg M.D.,PhD Erythrocyte distribution width (RBC) [Ratio] 14.4 % Normal 11.0-15.0 [facility] Comment on above: Performed By: #### 6 517, 6399, 1005, 496, 899, 14199 #### [facility] of [address], [address] Buffing Wheel Raker: Aamir Huerta MD #### 5224 #### [facility]/[place] [address] [facility] [place], [place] Buffing Wheel Raker: Jasvir Lundberg M.D.,PhD Hematocrit (Bld) [Volume fraction] 42.8 % Normal 38.5-50.0 [facility] Comment on above: Performed By: #### 6 517, 6399, 1005, 496, 899, 96859 #### [facility] of [address], [address] [place] [address] Buffing Wheel Raker: Aamir Huerta MD #### 5224 #### [facility] [place] Buffing Wheel Raker: Jasvir Lundberg M.D.,PhD Hemoglobin (Bld) [Mass/Vol] 14.0 g/dL Normal 13.2-17.1 [facility] Comment on above: Performed By: #### 6 517, 6399, 1005, 496, 899, 59365 #### [facility] of [address], [address] [place], [place] [address] Buffing Wheel Raker: Aamir Huerta MD #### 5224 #### [facility] [place] Buffing Wheel Raker: Jasvir Lundberg M.D.,PhD Lymphocytes (Bld) [#/Vol] 1.196 10*3/uL Normal 850-3900 [facility] Comment on above: Performed By: #### 6 517, 6399, 1005, 496, 899, 59253 #### [facility] of [address], [address] [place] [address] Buffing Wheel Raker: Aamir Huerta MD #### 5224 #### [facility]/[place] [address] [place] Buffing Wheel Raker: Jasvir Lundberg M.D.,PhD Lymphocytes/100 WBC (Bld) 23.0 % Normal [facility] Comment on above: Performed By: #### 6 517, 6399, 1005, 496, 899, 79139 #### [facility] [place] [id number] Buffing Wheel Raker: Aamir Huerta MD #### 5224 #### [facility]/[place] [address] [facility] [place] Buffing Wheel Raker: Jasvir Lundberg M.D.,PhD MCH (RBC) [Entitic mass] 31.1 pg Normal 27.0-33.0 [facility] Comment on above: Performed By: #### 6 517, 6399, 1005, 496, 899, 54977 #### [facility] [place] [id number] Buffing Wheel Raker: Aamir Huerta MD #### 5224 #### [facility]/[place] [address] [facility] [place] Buffing Wheel Raker: Jasvir Lundberg M.D.,PhD MCHC (RBC) [Mass/Vol] 32.7 [...] #### 6 517, 6399, 1005, 496, 899, 02944 #### [facility] [address], [address] [place], [place] [address] Buffing Wheel Raker: Aamir Huerta MD #### 5224 #### [facility] [place] Buffing Wheel Raker: Jasvir Lundberg M.D.,PhD MCV (RBC) [Entitic vol] 95.1 fL Normal 80.0-100.0 [facility] Comment on above: Performed By: #### 6 517, 6399, 1005, 496, 899, 35030 #### [facility] of [address] Buffing Wheel Raker: Aamir Huerta MD #### 5224 #### [facility]/[address] [place], [place] Buffing Wheel Raker: Jasvir Lundberg M.D.,PhD Monocytes (Bld) [#/Vol] 0.354 10*3/uL Normal 200-950 [facility] Comment on above: Performed By: #### 6 517, 6399, 1005, 496, 899, 85523 #### [facility] of [place] [id number] Buffing Wheel Raker: Aamir Huerta MD #### 5224 #### [facility]/[address] [place], [place] Buffing Wheel Raker: Jasvir Lundberg M.D.,PhD Monocytes/100 WBC (Bld) 6.8 % Normal [facility] Comment on above: Performed By: #### 6 517, 6399, 1005, 496, 899, 94403 #### [facility] of [address] Buffing Wheel Raker: Aamir Huerta MD #### 5224 #### [facility]/[address] [place], [place] Buffing Wheel Raker: Jasvir Lundberg M.D.,PhD Neutrophils (Bld) [#/Vol] 3.562 10*3/uL Normal 6315-1200 [facility] Comment on above: Performed By: #### 6 517, 6399, 1005, 496, 899, 45103 #### [facility] of [place] [id number] Buffing Wheel Raker: Aamir Huerta MD #### 5224 #### [facility]/[place] [address] [facility] [place], [place] Buffing Wheel Raker: Jasvir Lundberg M.D.,PhD Neutrophils/100 WBC (Bld) 68.5 % Normal [facility] Comment on above: Performed By: #### 6 517, 6399, 1005, 496, 899, 15899 #### [facility] of [address], [address] [place], [place] [id number] Buffing Wheel Raker: Aamir Huerta MD #### 5224 #### [facility]/[place] [address] [facility] [place], [place] Buffing Wheel Raker: Jasvir Lundberg M.D.,PhD Platelet mean volume (Bld) [Entitic vol] 11.7 fL Normal 7.5-12.5 [facility] Comment on above: Performed By: #### 6 517, 6399, 1005, 496, 899, 30388 #### [facility] of [address], [address] [place], [place] [address] Buffing Wheel Raker: Aamir Huerta MD #### 5224 #### [facility]/[place] [address]25 [facility] [place] Buffing Wheel Raker: Jasvir Lundberg M.D.,PhD Platelets (Bld) [#/Vol] 222 10*3/uL Normal 140-400 [facility] Comment on above: Performed By: #### 6 517, 6399, 1005, 496, 899, 54869 #### [facility] of [address], [address] [place], [place] [address] Buffing Wheel Raker: Aamir Huerta MD #### 5224 #### [facility] [place] Buffing Wheel Raker: Jasvir Lundberg M.D.,PhD RBC (Bld) [#/Vol] 4.50 10*6/uL Normal 4.20-5.80 [facility] Comment on above: Performed By: #### 6 517, 6399, 1005, 496, 899, 36210 #### [facility] of [address], [address] [place] [address] Buffing Wheel Raker: Aamir Huerta MD #### 5224 #### [facility]/[address] [place], [place] Buffing Wheel Raker: Jasvir Lundberg M.D.,PhD WBC (Bld) [#/Vol] 5.2 10*3/uL Normal 3.8-10.8 [facility] Comment on above: Performed By: #### 6 517, 6399, 1005, 496, 899, 88519 #### [facility] [address], [address] [place] [address] Buffing Wheel Raker: Aamir Huerta MD #### 5224 #### [facility]/[address] [place], [place] Buffing Wheel Raker: Jasvir Lundberg M.D.,PhD [facility] 01-05-2025 Albumin [Mass/Vol] 4.4 g/dL Normal 3.6-5.1 [facility] Comment on above: Performed By: #### 6 517, 6399, 1005, 496, 899, 30610 #### [facility] of [address], [address] [place] [address] Buffing Wheel Raker: Aamir Huerta MD #### 5224 #### [facility]/[address] [place], [place] Buffing Wheel Raker: Jasvir Lundberg M.D.,PhD Albumin/Globulin [Mass ratio] 1.5 {ratio} Normal 1.0-2.5 [facility] Comment on above: Performed By: #### 6 517, 6399, 1005, 496, 899, 71765 #### [facility] of [address], [address] [place] [address] Buffing Wheel Raker: Aamir Huerta MD #### 5224 #### [facility] [place] Buffing Wheel Raker: Jasvir Lundberg M.D.,PhD ALP [Catalytic activity/Vol] 41 U/L Normal 35-144 [facility] Comment on above: Performed By: #### 6 517, 6399, 1005, 496, 899, 33027 #### [facility] of [place] [id number] Buffing Wheel Raker: aAmir Huerta MD #### 5224 #### [facility] [place] Buffing Wheel Raker: Jasvir Lundberg M.D.,PhD ALT [Catalytic activity/Vol] 11 U/L Normal 9-46 [facility] Comment on above: Performed By: #### 6 517, 6399, 1005, 496, 899, 69685 #### [facility] of [place] [id number] Buffing Wheel Raker: Aamir Huerta MD #### 5224 #### [facility] [place] Buffing Wheel Raker: Jasvir Lundberg M.D.,PhD AST [Catalytic activity/Vol] 13 U/L Normal 10-35 [facility] Comment on above: Performed By: #### 6 517, 6399, 1005, 496, 899, 80294 #### [facility] of [place] [id number] Buffing Wheel Raker: Aamir Huerta MD #### 5224 #### [facility] [place] Buffing Wheel Raker: Jasvir Lundberg M.D.,PhD Bilirubin [Mass/Vol] 0.7 mg/dL Normal 0.2-1.2 [facility] Comment on above: Performed By: #### 6 517, 6399, 1005, 496, 899, 41235 #### [facility] of [address], [address] [place] [address] Buffing Wheel Raker: Aamir Huerta MD #### 5224 #### [facility] [address] [facility] [place] Buffing Wheel Raker: Jasvir Lundberg M.D.,PhD BUN/CREATININE RATIO SEE NOTE: Normal 6-22 [facility] Comment on above: Result Comment: Not Reported: BUN and Creatinine are within reference range. Performed By: #### 6 517, 6399, 1005, 496, 899, 37654 #### [facility] of [address], [address] [place] [address] Buffing Wheel Raker: Aamir Huerta MD #### 5224 #### [facility]/[place] [address] [facility] [place] Buffing Wheel Raker: Jasvir Lundberg M.D.,PhD Calcium [Mass/Vol] 9.5 mg/dL Normal 8.6-10.3 [facility] Comment on above: Performed By: #### 6 517, 6399, 1005, 496, 899, 34495 #### [facility] of [place] [address], [address] [place], [place] [id number] Buffing Wheel Raker: Aamir Huerta MD #### 5224 #### [facility]/[place] [address]7425 [facility] [place] Buffing Wheel Raker: Jasvir Lundberg M.D.,PhD Chloride [Moles/Vol] 103 mmol/L Normal 98-110 [facility] Comment on above: Performed By: #### 6 517, 6399, 1005, 496, 899, 18226 #### [facility] of [place] [address], [address] [place], [place] [address] Buffing Wheel Raker: Aamir Huerta MD #### 5224 #### [facility]/[place] [address] [facility] [address] [place] Buffing Wheel Raker: Jasvir Lundberg M.D.,PhD CO2 [Moles/Vol] 22 mmol/L Normal 20-32 [facility] Comment on above: Performed By: #### 6 517, 6399, 1005, 496, 899, 25517 #### [facility] [address], [address] [place], [place] [address] Buffing Wheel Raker: Aamir Huerta MD #### 5224 #### [facility]/[address] [place], [place] Buffing Wheel Raker: Jasvir Lundberg M.D.,PhD Creatinine [Mass/Vol] 1.28 mg/dL Normal 0.70-1.[address] [facility] Comment on above: Performed By: #### 6 517, 6399, 1005, 496, 899, 42186 #### [facility] [address], [address] [place], [place] [address] Buffing Wheel Raker: Aamir Huerta MD #### 5224 #### [facility]/[place] [address] [place], [place] Buffing Wheel Raker: Jasvir Lundberg M.D.,PhD GFR/1.73 sq M.predicted among non-blacks MDRD (S/P/Bld) [Vol rate/Area] 62 mL/min/{1.73_m2} Normal > OR = 60 [facility] Comment on above: Performed By: #### 6 517, 6399, 1005, 496, 899, 24053 #### [facility] [address], [address] [place], [place] [address] Buffing Wheel Raker: Aamir Huerta MD #### 5224 #### [facility]/[place] [id number] [facility] [address] [place] Buffing Wheel Raker: Jasvir Lundberg M.D.,PhD Globulin (S) [Mass/Vol] 2.9 g/dL Normal 1.9-3.7 [facility] Comment on above: Performed By: #### 6 517, 6399, 1005, 496, 899, 18835 #### [facility] [place] [address] Buffing Wheel Raker: Aamir Huerta MD #### 5224 #### [facility]/[place] [address]74[address] [facility] [place] Buffing Wheel Raker: Jasvir Lundberg M.D.,PhD Glucose [Mass/Vol] 133 mg/dL High 65-99 [facility] Comment on above: Result Comment: Fasting reference interval For someone without known diabetes, a glucose value >125 mg/dL indicates that they may have diabetes and this should be confirmed with a follow-up test. Performed By: #### 6 517, 6399, 1005, 496, 899, 37949 #### [place] [address] Buffing Wheel Raker: Aamir Huerta MD #### 5224 #### [facility]/[place] [address] [facility] [place] Buffing Wheel Raker: Jasvir Lundberg M.D.,PhD Potassium [Moles/Vol] 4.2 mmol/L Normal 3.5-5.3 [facility] Comment on above: Performed By: #### 6 517, 6399, 1005, 496, 899, 43738 #### [facility] [place] [id number] Buffing Wheel Raker: Aamir Huerta MD #### 5224 #### [facility]/[place] [address]74[address] [facility] [place] Buffing Wheel Raker: Jasvir Lundberg M.D.,PhD Protein [Mass/Vol] 7.3 g/dL Normal 6.1-8.1 [facility] Comment on above: Performed By: #### 6 517, 6399, 1005, 496, 899, 19864 #### [facility] [address] [place] [address] Buffing Wheel Raker: Aamir Huerta MD #### 5224 #### [facility]/[place] [address]74[address] [facility] [place] Buffing Wheel Raker: Jasvir Lundberg M.D.,PhD Sodium [Moles/Vol] 137 mmol/L Normal 135-146 [facility] Comment on above: Performed By: #### 6 517, 6399, 1005, 496, 899, 11770 #### [facility] of [address], [address] [place] [address] Buffing Wheel Raker: Aamir Huerta MD #### 5224 #### [facility] [place] Buffing Wheel Raker: Jasvir Lundberg M.D.,PhD Urea nitrogen [Mass/Vol] 24 mg/dL Normal 7-25 [facility] Comment on above: Performed By: #### 6 517, 6399, 1005, 496, 899, 56176 #### [facility] [place] [address] Buffing Wheel Raker: Aamir Huerta MD #### 5224 #### [facility] [place] Buffing Wheel Raker: Jasvir Lundberg M.D.,PhD HEMOGLOBIN A1con 01-05-2025 HbA1c [...] for children. Performed By: #### 4 96, 93933, 6399, 6517, 7600 #### [facility] [address], [address] [place] [address] Buffing Wheel Raker: Aamir Huerta MD TEST AUTHORIZATIONon 025 CLIENT CONTACT: Normal [facility] Comment on above: Performed By: #### 6 517, 6399, 1005, 496, 899, 85296 #### [facility] [address], [address] [place] [address] Buffing Wheel Raker: Aamir Huerta MD #### 5224 #### [facility]/[place] [address] [facility] [place] Buffing Wheel Raker: Jasvir Lundberg M.D.,PhD COMMENT Normal [facility] Comment on above: Result Comment: Plea se have the ordering physician or his or her authorized new accounts representative sign a copy of this report and promptly return it by faxing it to: [phone] or by returning the form to your chassis driver. Performed By: #### 6 517, 6399, 1005, 496, 899, 04711 #### [facility] [address], [address] [place] [address] Buffing Wheel Raker: Aamir Huerta MD #### 5224 #### [facility] [address] [facility] [place] Buffing Wheel Raker: Jasvir Lundberg M.D.,PhD REPORT ALWAYS MESSAGE SIGNATURE Normal [facility] Comment on above: Result Comment: The laboratory testing on this patient was verbally requested or confirmed by the ordering physician or his or her authorized new accounts representative after contact with an employee of [employer]. Federal regulations require that we maintain on file written authorization for all laboratory testing. Accordingly we are asking that the ordering physician or his or her authorized new accounts representative sign a copy of this report and promptly return it to the client consultant. Signature: Performed By: #### 6 517, 6399, 1005, 496, 899, 67471 #### [facility] [address], [address] [place] [address] Buffing Wheel Raker: Aamir Huerta MD #### 5224 #### [facility]/[place] [address]74[address] [facility] [place] Buffing Wheel Raker: Jasvir Lundberg M.D.,PhD TEST CODE: 5224 Normal [facility] Comment on above: Performed By: #### 6 517, 6399, 1005, 496, 899, 81403 #### [facility] [place] [address] Buffing Wheel Raker: Aamir Huerta MD #### 5224 #### [facility]/[address] [place], [place] Buffing Wheel Raker: Jasvir Lundberg M.D.,PhD TEST NAME: APOLIPORTEIN B Normal [facility] Comment on above: Performed By: #### 6 517, 6399, 1005, 496, 899, 52138 #### [facility] [place] [address] Buffing Wheel Raker: Aamir Huerta MD #### 5224 #### [facility]/[address] [place], [place] Buffing Wheel Raker: Jasvir Lundberg M.D.,PhD TSHon 01-05-2025 TSH Qn 2.57 m[IU]/L Normal 0.40-4.50 [facility] Comment on above: Performed By: #### 4 96, 79065, 6399, 6517, 7600 #### [facility] of [place] [address] Buffing Wheel Raker: Aamir Huerta MD ALBUMIN, RANDOM URINE W/CREA Ramu 08-17-2024 ALBUMIN, URINE 1.0 mg/dL Normal See Note: [facility] Comment on above: Result Comment: Refe rentaylor Range: Reference Range Not established Performed By: #### 4 96, 78635, 63, 6517, 7600 #### [facility] [place] [address] Buffing Wheel Raker: Aamir Huerta MD ALBUMIN/CREATININE RATIO, RANDOM URINE [...] diagnostic category. Performed By: #### 4 96, 62809, 63, 6517, 7600 #### [facility] [place] [address] Buffing Wheel Raker: Aamir Huerta MD Creatinine (U) [Mass/Vol] 83 mg/dL Normal 20-320 [facility] Comment on above: Performed By: #### 4 96, 41469, 63, 6517, 7600 #### [facility] [place] [address] Buffing Wheel Raker: Aamir Huerta MD CBC (INCLUDES DIFF/PLT)on Basophils (Bld) [#/Vol] 0.019 10*3/uL Normal 0-200 [facility] Comment on above: Performed By: #### 4 96, 65868, 63, 6517, 7600 #### [facility] [place] [address] Buffing Wheel Raker: Aamir Huerta MD Basophils/100 WBC (Bld) 0.4 % Normal [facility] Comment on above: Performed By: #### 4 96, 82836, 6399, 6517, 7600 #### [facility] [place] [address] Buffing Wheel Raker: Aamir Huerta MD Eosinophils (Bld) [#/Vol] 0.082 10*3/uL Normal 15-500 [facility] Comment on above: Performed By: #### 4 96, 72087, 6399, 6517, 7600 #### [facility] of [place] [address] Buffing Wheel Raker: Aamir Huerta MD Eosinophils/100 WBC (Bld) 1.7 % Normal [facility] Comment on above: Performed By: #### 4 96, 73837, 63, 6517, 7600 #### [facility] of [place] [address] Buffing Wheel Raker: Aamir Huerta MD Erythrocyte distribution width (RBC) [Ratio] 13.2 % Normal 11.0-15.0 [facility] Comment on above: Performed By: #### 4 96, 43107, 63, 6517, 7600 #### [facility] of [place] [address] Buffing Wheel Raker: Aamir Huerta MD Hematocrit (Bld) [Volume fraction] 42.2 % Normal 38.5-50.0 [facility] Comment on above: Performed By: #### 4 96, 81956, 63, 6517, 7600 #### [facility] of [place] [address] Buffing Wheel Raker: Aamir Huerta MD Hemoglobin (Bld) [Mass/Vol] 14.0 g/dL Normal 13.2-17.1 [facility] Comment on above: Performed By: #### 4 96, 51853, 63, 6517, 7600 #### [facility] [place] [address] Buffing Wheel Raker: Aamir Huerta MD Lymphocytes (Bld) [#/Vol] 1.138 10*3/uL Normal 850-3900 [facility] Comment on above: Performed By: #### 4 96, 71850, 6399, 6517, 7600 #### [facility] [place] [address] Buffing Wheel Raker: Aamir Huerta MD Lymphocytes/100 WBC (Bld) 23.7 % Normal [facility] Comment on above: Performed By: #### 4 , , 6398, 65, 7600 #### [facility] [place] [address] Buffing Wheel Raker: Aamir Huerta MD MCH (RBC) [Entitic mass] 30.9 pg Normal 27.0-33.0 [facility] Comment on above: Performed By: #### 4 , , 6398, 65, 7600 #### [facility] [place] [address] Buffing Wheel Raker: Aamir Huerta MD MCHC (RBC) [Mass/Vol] 33.2 [...] , 6398, 65, 7600 #### [facility] [place] [address] Buffing Wheel Raker: Aamir Huerta MD MCV (RBC) [Entitic vol] 93.2 fL Normal 80.0-100.0 [facility] Comment on above: Performed By: #### 4 , , 6398, 65, 7600 #### [facility] [place] [address] Buffing Wheel Raker: Aamir Huerta MD Monocytes (Bld) [#/Vol] 0.36 10*3/uL Normal 200-950 [facility] Comment on above: Performed By: #### 4 96, , 63, 65, 7600 #### [facility] [place] [address] Buffing Wheel Raker: Aamir Huerta MD Monocytes/100 WBC (Bld) 7.5 % Normal [facility] Comment on above: Performed By: #### 4 96, 22428, 6399, 6517, 7600 #### [facility] [place] [address] Buffing Wheel Raker: Aamir Huerta MD Neutrophils (Bld) [#/Vol] 3.202 10*3/uL Normal 1288-0033 [facility] Comment on above: Performed By: #### 4 96, 75503, 6399, 6517, 7600 #### [facility] of [address], [address] [place] [address] Buffing Wheel Raker: Aamir Huerta MD Neutrophils/100 WBC (Bld) 66.7 % Normal [facility] Comment on above: Performed By: #### 4 96, 66989, 6399, 6517, 7600 #### [facility] [place] [address] Buffing Wheel Raker: Aamir Huerta MD Platelet mean volume (Bld) [Entitic vol] 11.4 fL Normal 7.5-12.5 [facility] Comment on above: Performed By: #### 4 96, 29465, 6399, 6517, 7600 #### [facility] [place] [address] Buffing Wheel Raker: Aamir Huerta MD Platelets (Bld) [#/Vol] 244 10*3/uL Normal 140-400 [facility] Comment on above: Performed By: #### 4 96, 18086, 6399, 6517, 7600 #### [facility] [place] [address] Buffing Wheel Raker: Aamir Huerta MD RBC (Bld) [#/Vol] 4.53 10*6/uL Normal 4.20-5.80 [facility] Comment on above: Performed By: #### 4 96, 66683, 6399, 6517, 7600 #### [facility] [place] [address] Buffing Wheel Raker: Aamir Huerta MD WBC (Bld) [#/Vol] 4.8 10*3/uL Normal 3.8-10.8 [facility] Comment on above: Performed By: #### 4 96, 27579, 6399, 6517, 7600 #### [facility] of [address], [address] [place] [address] Buffing Wheel Raker: Aamir Huerta MD COMPREHENSIVE METABOLIC PANE [facility] 08-17-2024 Albumin [Mass/Vol] 4.3 g/dL Normal 3.6-5.1 [facility] Comment on above: Performed By: #### 4 96, 12194, 6399, 6517, 7600 #### [facility] [place] [address] Buffing Wheel Raker: Aamir Huerta MD Albumin/Globulin [Mass ratio] 1.7 {ratio} Normal 1.0-2.5 [facility] Comment on above: Performed By: #### 4 96, 70886, 6399, 6517, 7600 #### [facility] of [address], [address] [place] [address] Buffing Wheel Raker: Aamir Huerta MD ALP [Catalytic activity/Vol] 46 U/L Normal 35-144 [facility] Comment on above: Performed By: #### 4 96, 37445, 6399, 6517, 7600 #### [facility] [place] [address] Buffing Wheel Raker: Aamir Huerta MD ALT [Catalytic activity/Vol] 10 U/L Normal 9-46 [facility] Comment on above: Performed By: #### 4 96, 48487, 6399, 6517, 7600 #### [facility] [place] [address] Buffing Wheel Raker: Aamir Huerta MD AST [Catalytic activity/Vol] 14 U/L Normal 10-35 [facility] Comment on above: Performed By: #### 4 96, 16815, 6399, 6517, 7600 #### [facility] [place] [address] Buffing Wheel Raker: Amair Huerta MD Bilirubin [Mass/Vol] 0.6 mg/dL Normal 0.2-1.2 [facility] Comment on above: Performed By: #### 4 96, 82401, 63, 6517, 7600 #### [facility] [place] [address] Buffing Wheel Raker: Aamir Huerta MD Calcium [Mass/Vol] 9.6 mg/dL Normal 8.6-10.3 [facility] Comment on above: Performed By: #### 4 96, 01450, 6399, 6517, 7600 #### [facility] [place] [address] Buffing Wheel Raker: Aamir Huerta MD Chloride [Moles/Vol] 101 mmol/L Normal 98-110 [facility] Comment on above: Performed By: #### 4 96, 01403, 63, 6517, 7600 #### [facility] [place] [address] Buffing Wheel Raker: Aamir Huerta MD CO2 [Moles/Vol] 26 mmol/L Normal 20-32 [facility] Comment on above: Performed By: #### 4 96, 39680, 63, 6517, 7600 #### [facility] [place] [address] Buffing Wheel Raker: Aamir Huerta MD Creatinine [Mass/Vol] 1.36 mg/dL High 0.70-1.[address] [facility] Comment on above: Performed By: #### 4 96, 19387, 6399, 6517, 7600 #### [facility] [place] [address] Buffing Wheel Raker: Aamir Huerta MD GFR/1.73 sq M.predicted among non-blacks MDRD (S/P/Bld) [Vol rate/Area] 58 mL/min/{1.73_m2} Low > OR = 60 [facility] Comment on above: Performed By: #### 4 96, 70199, 6399, 6517, 7600 #### [facility] [address], [address] [place] [address] Buffing Wheel Raker: Aamir Huerta MD Globulin (S) [Mass/Vol] 2.6 g/dL Normal 1.9-3.7 [facility] Comment on above: Performed By: #### 4 96, 77147, 63, 6517, 7600 #### [facility] [place] [address] Buffing Wheel Raker: Aamir Huerta MD Glucose [Mass/Vol] 130 mg/dL High 65-99 [facility] Comment on above: Result Comment: Fasting reference interval For someone without known diabetes, a glucose value >125 mg/dL indicates that they may have diabetes and this should be confirmed with a follow-up test. Performed By: #### 4 96, 27656, 63, 6517, 7600 #### [facility] [place] [address] Buffing Wheel Raker: Aamir Huerta MD Potassium [Moles/Vol] 4.3 mmol/L Normal 3.5-5.[address] [facility] Comment on above: Performed By: #### 4 96, 32807, 63, 6517, 7600 #### [facility] [place] [address] Buffing Wheel Raker: Aamir Huerta MD Protein [Mass/Vol] 6.9 g/dL Normal 6.1-8.1 [facility] Comment on above: Performed By: #### 4 96, 95940, 63, 6517, 7600 #### [facility] [place] [address] Buffing Wheel Raker: Aamir Huerta MD Sodium [Moles/Vol] 135 mmol/L Normal 135-146 [facility] Comment on above: Performed By: #### 4 96, 13338, 63, 6517, 7600 #### [facility] [place] [address] Buffing Wheel Raker: Aamir Huerta MD Urea nitrogen [Mass/Vol] 19 mg/dL Normal 7-25 [facility] Comment on above: Performed By: #### 4 96, 17565, 6399, 6517, 7600 #### [facility] [place] [address] Buffing Wheel Raker: Aamir Huerta MD Urea nitrogen/Creatinine [Mass ratio] 14 mg/mg Normal 6-22 [facility] Comment on above: Performed By: #### 4 96, 77325, 63, 6517, 7600 #### [facility] [address], [address] [place] [address] Buffing Wheel Raker: Aamri Huerta MD HEMOGLOBIN A1con 08-17-2024 HbA1c (Bld) [...] for children. Performed By: #### 4 96, 91102, 63, 6517, 7600 #### [facility] [address], [address] [place] [address] Buffing Wheel Raker: Aamir Huerta MD LIPID PANEL, STANDARDon 07-28 Cholesterol [Mass/Vol] 131 mg/dL Normal <200 [facility] Comment on above: Order Comment: FASTI NG:YES FASTING: YES Performed By: #### 4 96, 35596, 6399, 6517, 7600 #### [facility] [address], [address] [place] [address] Buffing Wheel Raker: Aamir Huerta MD Cholesterol in HDL [Mass/Vol] 43 mg/dL Normal > OR = 40 [facility] Comment on above: Order Comment: FASTI NG:YES FASTING: YES Performed By: #### 4 96, 17300, 6399, 6517, 7600 #### [facility] [address], [address] [place] [address] Buffing Wheel Raker: Aamir Huerta MD Cholesterol in LDL [Mass/Vol] [...] Anton SS et al. JORGE A. 2013;310(19): 4197-4988 (http://education.Unidesk.AptDeco/faq/[email or web address]) Performed By: #### 4 96, 20023, 6399, 6517, 7600 #### [facility] [address], [address] [place] [address] Buffing Wheel Raker: Aamir Huerta MD Cholesterol.total/Ashley sterol in HDL [Mass ratio] 3.0 {ratio} Normal <5.0 [facility] Comment on above: Order Comment: FASTI NG:YES FASTING: YES Performed By: #### 4 96, 33350, 6399, 6517, 7600 #### [facility] [address], [address] [place] [address] Buffing Wheel Raker: Aamir Huerta MD NON HDL CHOLESTEROL 88 mg/dL (calc) Normal <130 [facility] Comment on above: Order Comment: FASTI NG:YES FASTING: YES Result Comment: For patients with diabetes plus 1 major ASCVD risk factor, treating to a non-HDL-C goal of <100 mg/dL (LDL-C of <70 mg/dL) is considered a therapeutic option. Performed By: #### 4 96, 86351, 6399, 6517, 7600 #### [facility] [address], [address] [place] [address] Buffing Wheel Raker: Aamir Huerta MD Triglyceride [Mass/Vol] 171 mg/dL High <150 [facility] Comment on above: Order Comment: FASTI NG:YES FASTING: YES Performed By: #### 4 96, 13580, 6399, 6517, 7600 #### [facility] [address], [address] [place] [address] Buffing Wheel Raker: Aamir Huerta MD TSHon 08-17-2024 TSH Qn 1.06 m[IU]/L Normal 0.40-4.50 [facility] Comment on above: Performed By: #### 4 96, 95964, 6399, 6517, 7600 #### [facility] [address] [facility], [address] [place] [address] Buffing Wheel Raker: Aamir Huerta MD ED Discharge Educationon ED Discharge Education Normal So [facility] ED Patient Summaryon 021 ED Patient Summary [facility] Emergency Department Discharge Instructions [address] [place] [address] \.br\(Patient Copy)\.br\ \.br\Name: ALEKSANDRA FINNEY : 1960 \.br\Allergies: No Known Allergies\.br\Diagnosis : Diagnoses This Visit\.br\ COVID-19 virus infection (U07.1)\.br\ Medical problem - minor ([id number])\.br\ Medical screening exam ([id number])\.br\\.b r\\.br\ \.br\ Visit Date: 03/19/2021 08:23:28 \.br\ Current Date Time: 03/19/2021 08:42:54 \.br\Address: [address] [place] [address] \.br\ \.br\ \.br\Primary Care Provider: \.br\ Name: MATTHEW ACOSTA\.br\ Phone: [phone] \.br\ \.br\Emergency Department Care Providers: \.br\ Primary Physician: ALEJANDRA GREEN DO \.br\ \.br\ \.br\\.br\Thank you for choosing [facility] for your emergency care. You are very important to us. Our goal is to demonstrate our high quality medical care, and provide you with a very good patient experience.\.br\\.br\Yo u may receive a survey about our service. Please take the time to complete the survey and return it so we can continue to enhance our service.\.br\\.br\Thank you again for allowing the [facility] Emergency Department to care for your medical needs. If you have questions about your care or follow up information please contact us at [phone].\.br\\.br\ Follow-Up Instructions\.br\ \.br\ALEKSANDRA MILLER has been given these follow-up instructions:\.br\\.br\ Patient Education Materials\.br\ \.br\ALEKSANDRA REYES has been given the following patient education materials:\.br\\.br\ \.br\BEFORE YOU LEAVE\.br\\.br\Set up your [facility] Taskforcefe account!\.br\ \.br\[employer] is a secure, online health management tool that connects you to portions of your hospital-based electronic medical record, allowing you to see test results, manage appointments, access discharge care instructions and much more.\.br\ \.br\You can access [employer] from a computer, tablet or smartphone. Enrollment/registration is required. If you do not have a [employer] account, please provide us with an email address before you leave so that we may set up an account for you.\.br\ \.br\New to [employer]!\.br\You may now securely connect some of the health management apps you use (e.g., fitness trackers, dietary trackers, etc.) to your health record in [facility] [employer]. This new feature provides expanded access to your health and wellness data, which will help you and your care team make informed decisions about your health care. \.br\If you are interested in using a health management bertha not currently connected to [employer], contact a Copy Manager at [phone] or [email or web address]. We will determine if the bertha meets the technical requirements to connect to [facility] [employer] and assure the security of your private [...] health or substance abuse issue, please call [facility] at [phone] or the National Suicide Prevention Lifeline at .\.br\ \.br\ \.br\\.br\MIKAELA Steinberg IVAN, have received the follow-up provider(s) list, medication information and patient education materials/instructions and have verbalized understanding.\.br\ \.br\ \.br\Patient Signature \.br\Date \.br\Time \.br\ \.br\ \.br\Pr ovider Signature \.br\Date \.br\Time Normal [facility] ED Physician Reporton 2020 ED Physician [...] Impression and Plan Diagnosis COVID-19 virus infection (SNL36-PP U07.1, Working, Medical) Plan Condition: Stable. Disposition: [...] plan, Patient indicated understanding of instructions. Normal [facility] ED Progress Noteon ED Progress Note Patient [place] [facility] [place]. IV established, infusion started without incident. No reaction noted. Patient discharged from [facility]. IV removed, no reaction noted. Normal [facility] SARS-CoV-2 (COVID-19) [place] 0830 [...] the infusion,. D/c'd from the ED. Normal [facility] Basic metabolic 2000 panelon 10-23-2020 Anion gap [Moles/Vol] 9.0 mmol/L Normal 6.0-18.0 [facility] Comment on above: Performed By: #### 2 4321-2 #### [facility] [address] [place] [address] Calcium [Mass/Vol] 9.6 mg/dL Normal 8.9-10.3 [facility] Comment on above: Performed By: #### 2 4321-2 #### [facility] [address] [place] [address] Chloride [Moles/Vol] 105 mmol/L Normal 98-107 [facility] Comment on above: Performed By: #### 2 4321-2 #### [facility] [address] [facility] [place] [address] CO2 [Moles/Vol] 24 mmol/L Normal 22-32 [facility] Comment on above: Performed By: #### 2 4321-2 #### [facility] [address] [facility] [place] [address] Creatinine [Mass/Vol] 1.57 mg/dL High 0.60-1.30 [facility] Comment on above: Performed By: #### 2 4321-2 #### [facility] [address] [facility] [address] Glucose [Mass/Vol] 307 mg/dL High 70-99 [facility] Comment on above: Result Comment: U pdated ADA Reference Range A normal fasting glucose concentration is less than 100 mg/dL. An impaired fasting glucose concentration is 100-125 mg/dL. A provisional diagnosis of diabetes mellitus can be made when a fasting glucose concentration is greater than 125 mg/dL. Performed By: #### 2 4321-2 #### [facility] [address] [place] [address] Potassium [Moles/Vol] 4.2 mmol/L Normal 3.6-5.1 [facility] Comment on above: Performed By: #### 2 4321-2 #### [facility] [address] [facility] [place] [address] Sodium [Moles/Vol] 138 mmol/L Normal 136-145 [facility] Comment on above: Performed By: #### 2 4321-2 #### [facility] [address] [facility] [place] [address] Urea nitrogen (BldV) [Mass/Vol] 22 mg/dL High 8-20 [facility] Comment on above: Performed By: #### 2 4321-2 #### [facility] [address] [facility] [place] [address] CBC W Auto Differential pane l (Bld)on 10-23-2020 Basophils (Bld) [#/Vol] 0.02 thou/mcL Normal 0.00-0.20 [facility] Comment on above: Performed By: #### 5 7021-8 #### [facility] [address] [place] [address] Basophils/100 WBC (Bld) 0.3 % Normal 0.0-2.0 [facility] Comment on above: Performed By: #### 5 7021-8 #### [facility] [address] [place] [address] Eosinophils (Bld) [#/Vol] 0.02 thou/mcL Normal 0.00-0.70 [facility] Comment on above: Performed By: #### 5 7021-8 #### [facility] [address] [place] [address] Eosinophils/100 WBC (Bld) 0.3 % Normal 0.0-7.0 [facility] Comment on above: Performed By: #### 5 7021-8 #### [facility] [address] [place] [address] Erythrocyte distribution width (RBC) [Entitic vol] 12.9 % Normal 11.0-14.8 [facility] Comment on above: Performed By: #### 5 7021-8 #### [facility] [address] [place] [address] Hematocrit (Bld) [Volume fraction] 43.3 % Normal 39.0-49.0 [facility] Comment on above: Performed By: #### 5 7021-8 #### [facility] [address] [place] [address] Hemoglobin (Bld) [Mass/Vol] 14.3 g/dL Normal 13.5-17.5 [facility] Comment on above: Performed By: #### 5 7021-8 #### [facility] [address] [place] [address] Lymphocytes (Bld) [#/Vol] 0.69 thou/mcL Low 1.00-4.80 [facility] Comment on above: Performed By: #### 5 7021-8 #### [facility] [address] [place] [address] Lymphocytes/100 WBC (Bld) 9.8 % Low 22.0-44.0 [facility] Comment on above: Performed By: #### 5 7021-8 #### [facility] [address] [place] [address] MCH (RBC) [Entitic mass] 31.2 Picograms Normal 27.0-34.0 [facility] Comment on above: Performed By: #### 5 7021-8 #### [place] [address] [place] [address] MCHC (RBC) [Mass/Vol] 33.0 g/dL Normal 32.0-36.0 [facility] Comment on above: Performed By: #### 5 7021-8 #### [address] [address] MCV (RBC) [Entitic vol] 94.3 fL Normal 80.0-97.0 [facility] Comment on above: Performed By: #### 5 7021-8 #### [place] [address] [place] [address] Monocytes (Bld) [#/Vol] 0.31 thou/mcL Normal 0.00-0.90 [facility] Comment on above: Performed By: #### 5 7021-8 #### [place] [address] [place] [address] Monocytes/100 WBC (Bld) 4.4 % Normal 0.0-12.0 [facility] Comment on above: Performed By: #### 5 7021-8 #### [place] [address] [place] [address] Neutrophils (Bld) [#/Vol] 5.98 thou/mcL Normal 1.80-7.70 [facility] Comment on above: Performed By: #### 5 7021-8 #### [place] [address] [place] [address] Neutrophils/100 WBC (Bld) 85.2 % High 40.0-70.0 [facility] Comment on above: Performed By: #### 5 7021-8 #### [facility] [address] [place] [address] Platelet mean volume (Bld) [Entitic vol] 11.7 fL Normal 6.2-12.1 [facility] Comment on above: Performed By: #### 5 7021-8 #### [facility] [address] [place] [address] Platelets (Bld) [#/Vol] 221 thou/mcL Normal 142-424 [facility] Comment on above: Performed By: #### 5 7021-8 #### [address] [address] [place] [address] RBC (Bld) [#/Vol] 4.59 million/mcL Normal 4.30-5.70 [facility] Comment on above: Performed By: #### 5 7021-8 #### [address] [place] [address] WBC (Bld) [#/Vol] 7.0 thou/mcL Normal 4.6-10.2 [facility] Comment on above: Performed By: #### 5 7021-8 #### [address] [address] [address] Abd and Pelvis w Contrast on [...] Mild hepatic steatosis. 4. Small hiatal hernia. [facility] thanks you for the opportunity to care for your patient. Workstation ID: [id number] - [id number] FINAL REPORT Dictated By: Ike Velez MD 10/23/2020 13:17 Assigned Physician: Ike Velez MD Reviewed and Electronically Signed By: Ike Velez MD 10/23/2020 13:21 Transcribed by: NATALIA 10/23/2020 13:17 Technologist: PRINCESS Johnson [facility] ED [facility] 10-23-2020 [place] [address] Emergency Department Discharge Instructions ALEKSANDRA FINNEY, Please [...] Servicios de Emergencia Name ALEKSANDRA FINNEY MRN [facility]-[id number] PLEASE READ THE FOLLOWING REGARDING YOUR MEDICATIONS [...] doses are changed, or new medications (including bkrk-teu-uqhzabg products) are added. If you have any [...] MEDICATIONS YOU SHOULD BE TAKING acetaminophen-HYDROcodo ne (Inez 325 mg-5 mg oral tablet) 1-2 By [...] below: NEW MEDICATIONS Printed Prescriptions acetaminophen-HYDROcodo ne (Inez 325 mg-5 mg oral tablet) 1-2 By [...] UNTIL YOU TALK TO YOUR DOCTOR None [facility] [address] [place] [address] Emergency Department Discharge Instructions Name: ALEKSANDRA FINNEY Current Date: 10/23/2020 16:42:41 :1960 nbsp; Primary Physician: We would like to thank you for choosing [facility] for your emergency medical needs. We examined and treated you today on an emergency basis only (more content not included)... Normal [facility] GFR/1.73 sq M.predicted (S/P /Bld) [Vol rate/Area]on 10-23-2020 GFR/1.73 sq M.predicted among blacks MDRD (S/P/Bld) [Vol rate/Area] 55 mL/min/{1.73_m2} Normal [facility] Comment on above: Result Comment: The MDRD equation has not been validated for those over 70 years, women, patients with serious co-morbid conditions, or with extremes of body size, muscle mass of nutritional status. Performed By: #### 6 9405-9 #### [address] [address] GFRbbon 10-23-2020 GFR/1.73 sq M.predicted among non-blacks MDRD (S/P/Bld) [Vol rate/Area] 45 mL/min/{1.73_m2} Normal [facility] Comment on above: Performed By: #### 4 8642-3x1 #### [address] [address] Hepatic function 2000 panelo n 10-23-2020 Albumin [Mass/Vol] 4.6 g/dL Normal 3.5-4.8 [facility] Comment on above: Performed By: #### 2 4325-3 #### [address] [address] ALP [Catalytic activity/Vol] 42 Units/L Normal 32-91 [facility] Comment on above: Performed By: #### 2 4325-3 #### [address] [address] ALT [Catalytic activity/Vol] 15 Units/L Normal 7-52 [facility] Comment on above: Result Comment: Emeterio renee note: Change in reference range for ALT occurred on 03/09/20 at [facility], [facility], and [facility]. Performed By: #### 2 4325-3 #### [facility] [address] [facility] [place] [address] AST [Catalytic activity/Vol] 19 Units/L Normal 15-41 [facility] Comment on above: Performed By: #### 2 4325-3 #### [facility] [address] [facility] [place] [address] Bilirubin [Mass/Vol] 0.6 mg/dL Normal 0.3-1.2 [facility] Comment on above: Performed By: #### 2 4325-3 #### [facility] [address] [facility] [place] [address] Bilirubin.direct [Mass/Vol] 0.1 mg/dL Normal 0.1-0.5 [facility] Comment on above: Performed By: #### 2 4325-3 #### [facility] [address] [facility] [place] [address] Bilirubin.indirect [Mass/Vol] 0.5 mg/dL Normal 0.0-1.0 [facility] Comment on above: Performed By: #### 2 4325-3 #### [facility] [address] [place] [address] Protein [Mass/Vol] 7.6 g/dL Normal 6.1-7.9 [facility] Comment on above: Performed By: #### 2 4325-3 #### [facility] [address] [facility] [place] [address] Lactate (Bld) [Mass/Vol]on 0 10-23-2020 Lactate [Moles/Vol] 1.3 mmol/L Normal 0.5-2.2 [facility] Comment on above: Performed By: #### 5 9032-3 #### [facility] [address] [facility] [place] [address] Lipaseon 10-23-2020 Lipase [Catalytic activity/Vol] 39 Units/L Normal 11-82 [facility] Comment on above: Result Comment: Emeterio renee note: Change in reference range for LIP occurred on 03/09/20 at [facility], [facility], [facility], and [facility]. Performed By: #### 3 040-3 #### [place] [place] [address] Microscopic method Nom (U)on 10-23-2020 Epithelial cells.squamous LM.HPF (Urine sed) [#/Area] RARE Normal FEW/LPF [facility] Comment on above: Performed By: #### 6 9405-9 #### [place] [address] [place] [address] Mucus Ql (Urine sed) RARE Abnormal NONE/LPF [facility] Comment on above: Performed By: #### 6 9405-9 #### [place] [address] [place] [address] RBC LM.HPF (Urine sed) [#/Area] 22 /[HPF] High 0-5 [facility] Comment on above: Performed By: #### 6 9405-9 #### [facility] [address] [place] [address] WBC LM.HPF (Urine sed) [#/Area] 2 /[HPF] Normal 0-5 [facility] Comment on above: Performed By: #### 6 9405-9 #### [address] [address] [place] Duplex Abd/Pelvis Retrope r Completeon 10-23-2020 [...] by: NATALIA 10/23/2020 13:11 Technologist: CATRACHO Normal [facility] US Scrotum and Contentson US Scrotum and [...] by: NATALIA 10/23/2020 13:11 Technologist: TCP Normal [facility] Urinalysis dipstick W Reflex Microscopic panel (U)on 10-23-2020 Appearance (U) CLEAR Normal CLEAR [facility] Comment on above: Performed By: #### 6 9405-9 #### [facility] [address] [place] [address] Bilirubin (U) [Mass/Vol] Negative Normal NEGATIVE-NE [facility] Comment on above: Performed By: #### 6 9405-9 #### [facility] [address] [facility] [place] [address] Color (U) STRAW Abnormal YELLOW [facility] Comment on above: Performed By: #### 6 9405-9 #### [facility] [address] [place] [address] Glucose Test strip (U) [Mass/Vol] 500MG/DL Abnormal NORMAL [facility] Comment on above: Performed By: #### 6 9405-9 #### [facility] [address] [place] [address] Hemoglobin Ql (U) 300/UL Abnormal NEGATIVE-N E [facility] Comment on above: Performed By: #### 6 9405-9 #### [facility] [address] [place] [address] Ketones (U) [Mass/Vol] Negative Normal NEGAT BRIANNE-NE [facility] Comment on above: Performed By: #### 6 9405-9 #### [facility] [address] [place] [address] Leukocyte esterase Test strip Ql (U) Negative Normal NEGATIVE-NE [facility] Comment on above: Performed By: #### 6 9405-9 #### [facility] [address] [place] [address] Nitrite Test strip (U) [Mass/Vol] Negative Normal NEGATIVE-NE [facility] Comment on above: Performed By: #### 6 9405-9 #### [facility] [address] [place] [address] pH (U) 5.5 [pH] Normal 4.5-8.0 [facility] Comment on above: Performed By: #### 6 9405-9 #### [facility] [address] [place] [address] Protein (U) [Mass/Vol] 30 mg/dL Abnormal NEGAT BRIANNE-NE GATIVE [facility] Comment on above: Performed By: #### 6 9405-9 #### [facility] [address] [facility] [place] [address] Specific gravity (U) [Rel density] 1.036 High 1.002-1.030 [facility] Comment on above: Performed By: #### 6 9405-9 #### [facility] [address] [facility] [place] [address] Urobilinogen (U) [Mass/Vol] NORMAL Normal NORMAL [facility] Comment on above: Performed By: #### 6 9405-9 #### [facility] [address] [facility] [place] [address] PROGRESSon 09-29-2019 PROGRESS HNO ID: [id number] Author: Rey Hoskins Service: ? 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 Rey Hoskins MD Normal [facility] Basic Panelon 01-03-2018 Anion gap 3 molar conc 9 mmol/L Normal 8-20 [facility] Comment on above: Performed By: #### L P8 ####[address] [address] Calcium mass conc 8.6 mg/dL Normal 8.5-10.1 [facility] Comment on above: Performed By: #### L P8 ####[address] [address] Chloride molar conc 101 mmol/L Normal 98-107 [facility] Comment on above: Performed By: #### L P8 ####[place] [address] [place], [place] [address] CO2 molar conc 26 mmol/L Normal 21-32 [facility] Comment on above: Performed By: #### L P8 ####[facility] [place], [place] [address] Creatinine mass conc 1.38 mg/dL High 0.67-1.17 [facility] Comment on above: Performed By: #### L P8 ####[facility] [place], [place] [address] Glucose mass conc 191 mg/dL High 70-99 [facility] Comment on above: Performed By: #### L P8 ####[facility] [place] [address] Potassium molar conc 3.9 mmol/L Normal 3.5-5.1 [facility] Comment on above: Performed By: #### L P8 ####[place] [address] Sodium molar conc 132 mmol/L Low 136-145 [facility] Comment on above: Performed By: #### L P8 ####[facility] [place], [place] [address] Urea nitrogen mass conc (Bld) 17 mg/dL Normal 7-25 [facility] Comment on above: Performed By: #### L P8 ####[place] [address] Urea nitrogen/Creatinine mass ratio 12 mg/mg Normal 10-20 [facility] Comment on above: Performed By: #### L P8 ####[place] [address] CHEST 2 VIEWSon 01-03-2018 Protein mass conc Performed at [facility] APPROVED BY: KANIKA GERMAN MD EXAMINATION: CHEST RADIOGRAPH (2 VIEW FRONTAL & LATERAL) CLINICAL HISTORY: Chest pain MQ: XC2_5Comparison: 06/13/2009 RESULT: Lines, tubes, and devices: None. Lungs and pleura: No consolidation. No lung mass. No pleural effusion. Cardiomediastinal silhouette: Normal cardiomediastinal silhouette. Other: No bony abnormalities. IMPRESSION:There has been no significant change. No acute radiographic abnormality. Normal [facility] CT HEAD W/O CONTRASTon 01-03 Protein mass conc Performed at [facility] APPROVED BY: Jai Bundy MD BRAIN [...] definitive acute abnormality as described above. Normal [facility] Hemogram/Diffon 01-03-2018 Abs. Baso 0.01 thou/cmm Normal 0.00-0.08 [facility] Comment on above: Performed By: #### L CBCD ####[address] [address] Abs. [place] 0.45 thou/cmm Normal 0.20-1.00 [facility] Comment on above: Performed By: #### L CBCD ####[address] [address] Abs. Neut (ANC) 4.03 thou/cmm Normal 3.00-5.67 [facility] Comment on above: Performed By: #### L CBCD ####[address] [address] Basophils/100 WBC Auto (Bld) 0.2 % Normal [facility] Comment on above: Performed By: #### L CBCD ####[address] [address] Eosinophils Auto #/vol (Bld) 0.00 thou/cmm Normal 0.00-0.41 [facility] Comment on above: Performed By: #### L CBCD ####[address] [address] Eosinophils/100 WBC Auto (Bld) 0.0 % Normal [facility] Comment on above: Performed By: #### L CBCD ####[address] [address] Erythrocyte distribution width Auto Ratio (RBC) 12.7 % Normal 11.5-15.9 [facility] Comment on above: Performed By: #### L CBCD ####[address] [address] Hematocrit Auto Volume Fraction (Bld) 41.3 % Low 42.0-52.0 [facility] Comment on above: Performed By: #### L CBCD ####[place] [address] Hemoglobin mass conc (Bld) 13.7 g/dL Low 14.0-18.0 [facility] Comment on above: Performed By: #### L CBCD ####[place] [address] Lymphocytes Auto #/vol (Bld) 0.51 thou/cmm Low 1.50-3.65 [facility] Comment on above: Performed By: #### L CBCD ####[address] [address] Lymphocytes/100 WBC Auto (Bld) 10.2 % Normal [facility] Comment on above: Performed By: #### L CBCD ####[address] [address] MCH Auto Entitic mass (RBC) 30.4 pg Normal 27.0-31.0 [facility] Comment on above: Performed By: #### L CBCD ####[place] [address] MCHC Auto mass conc (RBC) 33.2 % Normal 32.0-36.0 [facility] Comment on above: Performed By: #### L CBCD ####[address] [address] MCV Auto Entitic volume (RBC) 91.8 fL Normal 80.0-94.0 [facility] Comment on above: Performed By: #### L CBCD ####[address] [address] Monocytes/100 WBC Auto (Bld) 9.0 % Normal [facility] Comment on above: Performed By: #### L CBCD ####[place] [address] Platelet mean volume Auto Entitic volume (Bld) 10.9 fL High 7.1-10.5 [facility] Comment on above: Performed By: #### L CBCD ####[place] [address] Platelets Auto #/vol (Bld) 155 thou/cmm Normal 150-400 [facility] Comment on above: Performed By: #### L CBCD ####[place] [address] RBC Auto #/vol (Bld) 4.50 mil/cmm Low 4.60-6.20 [facility] Comment on above: Performed By: #### L CBCD ####[place] [address] Seg Neutrophil 80.6 % Normal [facility] Comment on above: Performed By: #### L CBCD ####[place] [address] WBC Auto #/vol (Bld) 5.0 thou/cmm Normal 4.8-10.8 [facility] Comment on above: Performed By: #### L CBCD ####[place] [address] MDRD eGFRon 01-03-2018 GFR/1.73 sq M predicted among non-blacks MDRD vol rate/area (S/P/Bld) 56.42 mL/min/{1.73_m2} Normal >60mL/min/1 .73m2 [facility] Comment on above: Result Comment: If t he patient is , multiply the result by 1.210. Performed By: #### L GFR ####[place] [address] Troponin Ion 01-03-2018 Troponin I.cardiac mass conc ng/mL Normal <=0.07 [facility] Comment on above: Performed By: #### L TRP ####[facility] [place] [address] Urinalysis Routineon 018 Amorphous Urates FEW Abnormal None [facility] Comment on above: Performed By: #### L URIN ####[facility] [place] [address] Appearance Nom (U) CLEAR Normal [facility] Comment on above: Performed By: #### L URIN ####[facility] [place] [address] Bilirubin Urine Negative Normal Negative [facility] Comment on above: Performed By: #### L URIN ####[place] [address] Color Nom (U) YELLOW Normal [facility] Comment on above: Performed By: #### L URIN ####[place] [address] Ep Cells Urine 0-2 Normal 0-5 [facility] Comment on above: Performed By: #### L URIN ####[place] [address] Glucose Ql (U) Negative Normal Negative [facility] Comment on above: Performed By: #### L URIN ####[place] [address] Hemoglobin,Urine Negative Normal Negative [facility] Comment on above: Performed By: #### L URIN ####[place] [address] Ketone Urine Negative Normal Negative [facility] Comment on above: Performed By: #### L URIN ####[place] [address] Leukocytes Esterase Negative Normal Negative [facility] Comment on above: Performed By: #### L URIN ####[place] [address] Nitrites Urine Negative Normal Negative [facility] Comment on above: Performed By: #### L URIN ####[place] [address] pH Test strip (U) 7.0 [pH] Normal 5.0-8.0 [facility] Comment on above: Performed By: #### L URIN ####[facility] [place], [place] [address] Protein Urine Negative Normal Negative [facility] Comment on above: Performed By: #### L URIN ####[facility] [place], [place] [address] RBC LM.HPF #/area (Urine sed) NONE Normal 0-3 [facility] Comment on above: Performed By: #### L URIN ####[place] [address] Specific [place], Ur 1.020 Normal 1.005-1.030 [facility] Comment on above: Performed By: #### L URIN ####[place] [address] Urobilinogen,Ur 0.2 EU/dL Normal 0.0-1.0 [facility] Comment on above: Performed By: #### L URIN ####[address] [address] WBC LM.HPF #/area (Urine sed) 0-2 Normal 0-5 [facility] Comment on above: Performed By: #### L URIN ####[address] [address] Vital Signs Date Time Vital Sign Value Performing Clinician Kamila ramirez 02-26-2025 08:53-0400 Heart rate 57 /min Matthew BECKER Work Phone: [facility] 02-26-2025 08:44-0400 Body temperature 97.7 [degF] Matthew BECKER Work Phone: [facility] 02-26-2025 08:44-0400 Diastolic blood pressure 69 mm[Hg] Matthew BECKER Work Phone: [facility] 02-26-2025 08:44-0400 Respiratory rate 18 /min Matthew BECKER Work Phone: [facility] 02-26-2025 08:44-0400 SaO2% (BldA) [Mass fraction] 98 % Matthew Acosta PA Work Phone: [facility] 02-26-2025 08:44-0400 Systolic blood pressure 121 mm[Hg] Matthew Acosta PA Work Phone: [facility] 02-25-2025 08:04-0400 Body height 167.64 cm Matthew Acosta PA Work Phone: [facility] 02-25-2025 08:04-0400 Body weight 115.66 kg Matthew Acosta PA Work Phone: [facility] 02-24-2025 10:53-0400 Body mass index (BMI) [Ratio] 41.1 kg/m2 Matthew Acosta PA Work Phone: [facility] 02-16-2025 13:08-0400 Body mass index (BMI) [Ratio] 41.1 kg/m2 Matthew Acosta PA Work Phone: [facility] 02-16-2025 13:08-0400 Body weight 115.66 kg Matthew Acosta PA Work Phone: [facility] 02-16-2025 13:08-0400 Diastolic blood pressure 76 mm[Hg] Matthew Acosta PA Work Phone: [facility] 02-16-2025 13:08-0400 Heart rate 64 /min Matthew Acosta PA Work Phone: [facility] 02-16-2025 13:08-0400 Respiratory rate 16 /min Matthew Acosta PA Work Phone: [facility] 02-16-2025 13:08-0400 Systolic blood pressure 119 mm[Hg] Matthew Acosta PA Work Phone: [facility] Encounters Encounter Date Encounter Type Care Provider Facility Start: 03-29-2025 ambulatory Migel Lamont Facility:[facility] [place] [facility]: [facility] Start: 02-25-2025 End: 02-26-2025 ambulatory [facility] Facility:[facility] Start: 02-16-2025 End: 02-16-[address] Gaston Cantu MD -[facility] Work Phone: Start: 02-16-2025 End: 02-16-2025 ambulatory Matthew BECKER Facility:[facility] Start: 01-24-2025 Non-patient / Non-visit Dr. Omayra BARRETO -[facility] Work Phone: Start: 01-24-2025 Registered Referred Matthew BECKER -Cat [facility] Work Phone: Start: 01-24-2025 ambulatory Mathtew BECKER Fac ility:[facility] Procedures Date Procedure Procedure Detail Performing Clinician Start: 02-26-2025 Estimated creatinine clearance Matthew BECKER Work Phone: Start: 02-25-2025 Coagulation time, activated Matthew BECKER Work Phone: Start: 01-24-2025 CT angiography of co ronary arteries Matthew BECKER Work Phone: Plan of Treatment Date Care Activity Detail Author Start: 03-01-2025 Non-patient / Non-visit Non-pa tient / Non-visit -[facility] Start: 02-26-2025 Patient discharge [facility] Start: 02-26-2025 [facility] Start: 02-26-2025 Non-patient / Non-visit Non-pa tient / Non-visit -[facility] Start: 02-25-2025 End: 02-26-2025 [facility] Start: 02-25-2025 Admission procedure [facility] Start: 02-25-2025 End: 02-26-2025 Evaluation and management of inpatient [place] coronary artery calcium score greater than 400 -[facility] Work Phone: Start: 02-25-2025 Elevation of head of bed [facility] Start: 02-25-2025 Dietary regime [facility] Start: 02-25-2025 Log roll [facility] Start: 02-25-2025 Provision of activit y privileges [facility] Start: 02-25-2025 Cardiac monitoring [facility] Start: 02-25-2025 Cardiac rehabilitati on - phase 1 [facility] Start: 02-25-2025 Notification of physician [facility] Start: 02-25-2025 Oxygen therapy [facility] Start: 02-25-2025 Patient discharge [facility] Start: 02-25-2025 Pulse taking [facility] Start: 02-16-2025 End: 02-16-2025 Evaluation of diagnostic study results [facility] Payers Date Payer Category Payer Unknown [id number] 2025 Self-pay Unknown [id number] 2.16.8 [id number] Unknown [id number] 2.16.8 [id number] Unknown [id number] 2.16.8 [id number] Unknown [id number] 2.16.8 [id number] Unknown [id number] 2.16.8 [id number] Social History Date Type Detail Facility Start: [facility]-25-[facility] Sex Male [facility] Start: 1960 Sex Assigned At Male [facility] [place] Medical Equipment Procedure Code Equipment Code Equipment Origin al Text Equipment Identifier Dates Drug-eluting coronary artery stent, [id number] lymer-coated ()[id number] FDA Start: 02-25-2025 Drug-eluting coronary artery stent, [id number] lymer-coated ()[id number] FDA Start: 02-25-2025 Goals Date Patient Goal Desired Activity /State Functional Status Date Assessment Result Facility 02-26-2025 Functional status Activity Ability Indepe kath[facility] Work Phone: Mental Status Date Assessment Result Facility 02-26-2025 Cognitive function Voice/Name [facility] Work Phone: Progress note 02-16-2025 Note Date & Type Note Facility 02-16-2025 Progress note [facility] Progress note 02-16-2025 Note Date & Type Note Facility 02-16-2025 Progress note Note Date/Time February 16, 2025 2:46pm [facility] [address] [place] [address] OFFICE VISIT Date of Service: 02/16/25 MR#: [id number] Acct: [id number] Name: ALEKSANDRA FINNEY Rep #: [id number] : 1960 Provider: Dr. Jessica Cantu MD Age/Sex: 64/M [facility] [facility] Status: Signed HPI HPI History of Present [...] pedal edema. He works actively in the [employer]. His physical exam is unremarkable his electrocardiogram demonstrates sinus rhythm with a rateof 64 bpm. He is currently on treatment for diabetes and hypercholesterolemia. Intake Vital Signs 02/16/25 13:08 Height 5 ft 6 in Weight: 255 lb BMI 41.1 BP 119/76 Blood Pressure Location Lt brachial Position Sitting Respiration 16 Pulse 64 Pulse Source Monitor Intake Visit Reasons: ABN CCTA (SELF) Machine Driller Required: No Accompanied by: Significant Other Is [...] BID 02/16/25 1 History iron) tablet (Feosol) [facility] Medical History Depression GERD (gastroesophageal reflux disease) Hypothyroidism Hyperlipidemia Type 2 diabetes mellitus with other specified complication SOB (shortness of breath) Family history of heart disease Chest pain Surgical History No history of previous surgery Family History Brother CHF (congestive heart failure) Brother Myocardial infarction LA x2 and many stents Brother S/P CABG [...] Date (if applicable) CC: EUGENIO Lorenzana ~ [place] [employer] Work Phone: [facility] Discharge summary 10-23-2020 Note Date & Type Note Facility 10-23-2020 [facility] EMERGENCY DEPARTMENT DISCHARGE SUMMARY PATIENT NAME:ALEKSANDRA FINNEY AGE: 59 Years SEX: Male PHONE:[phone] DOS: 10/23/2020 11:08:00 : 1960 ATTENDING PHYSICIAN:Sendy [...] home with?outpatient?urology follow up. He lives in [place] and would like to f/u with someone closer to home. ? Patient was given strict return precautions and verbalized understanding of the plan. ? Impression 1. 2mm obstructing kidney stone ? ? DISPOSITION: Time of Departure From ER 10/23/2020 16:35 Discharge/Transfer From ER Home 01 MEDICATION LISTS: CURRENT MEDICATION LIST acetaminophen-HYDROcodone (Inez 325 mg-5 mg oral tablet) 1-2 By [...] Color Urine A STRAW 10/23/2020 13:17 Specific [place] Urine H 1.036 10/23/2020 13:17 Glucose Urine A 500MG/DL 10/23/2020 13:17 Blood Urine A 300/UL 10/23/2020 13:17 Protein Urine A 30MG/DL 10/23/2020 13:17 RBC Urine H 22 /hpf 10/23/2020 13:17 Mucous Urine A RARE RADIOLOGY: RADIOLOGY RESULT(S) (Please contact Medical Rec (more content not included)... [facility] Evaluation note Note Date & Type Note [...] 25, 2025 chronic February 25, 2025 11:10am [facility] [employer] Work Phone: Reason for referral (narrative) Note Date & Type Note Facility Reason for referral (narrative) No reason for referral information available [facility] Work Phone: Summary Purpose Family History Relationship [...] Do you have a Healthcare Power of [employer] Eng[employer]? Yes February 25, 2025 7:04am Name of Medical Power of [employer] Eng[employer] Operator Jodi Finney February 25, 2025 7:04am Advance [...] section and content) DATE CREATED AUTHOR 01/14/2018 [facility] DATE CREATED AUTHOR AUTHOR'S ORGANIZ ATION 09/29/2019 [facility] DATE CREATED AUTHOR AUTHOR'S ORGANIZ ATION 10/23/2020 [facility] DATE CREATED AUTHOR AUTHOR'S ORGANIZ ATION 03/20/2021 [facility] DATE CREATED AUTHOR AUTHOR'S ORGANIZ ATION 02/24/2025 [facility] DATE CREATED AUTHOR AUTHOR'S ORGANIZ ATION 03/10/2025 [facility] y [...] February 16, 2025 End: February 16, 2025 Matthew BECKER PA Referring Provider Active Start: February [...] BE BASED ON THE PRIMARY CLINICAL RECORDS. [facility] [employer] [facility]. provides no warranty or guarantee of the accuracy or completeness of information in this document.
== END | disposition home or self-care (01) ==
LOC: CVS 13:43
PROVIDERS: PCP Physician Assistant; Referring Provider Internal Medicine Cardiovascular Disease; Visit Provider Internal Medicine Cardiovascular Disease
DX: R52 Pain, unspecified (principal); I79.8 Other disorders of arteries, arterioles and capillaries in diseases classified elsewhere
CPT/HCPCS: 93931

== ENCOUNTER → 2025-04-06 | Outpatient (CLI) | payer OTHER, SELFPAY ==
[2025-04-06 15:23] LABS: Hematocrit 45.3 % (40-54); Hemoglobin 14.6 g/dL (13.0-16.5); Mean Corp Hgb Conc 32.2 g/dL (32-36); Mean Corpuscular Volume 92.6 fL (80-94); Mean Platelet Vol. 11.3 fl (6.2-12.0); Platelet Count 234 K/mm3 (150-450); RBC Distribution Width CV 13.9 % (11.6-14.6); RBC Distribution Width SD 47.1 fl (35.1-43.9); Red Blood Count 4.89 M/mm3 (4.6-6.2); White Blood Count 5.2 K/mm3 (4.4-11.0)
[2025-04-06 15:48] LABS: AST(SGOT) 17 U/L (<=37); Alanine Aminotransfer ALT/SGPT 11 U/L (<=46); Albumin, Serum 4.4 g/dL (3.4-4.8); Alkaline Phosphatase 47 U/L (40-129); Anion Gap 13 (5-15); BUN 27 mg/dL (4-19); BUN/Creat Ratio 18.9 RATIO (10-20); Calcium,Total 10.3 mg/dL (7.6-11.0); Carbon Dioxide 23.7 mmol/L (21.0-32.0); Chloride 100 mmol/L (98-108); Globulin 3.2 g/dL (2.2-4.2); Glucose 129 mg/dL (70-99); Potassium 4.3 mmol/L (3.3-5.1)
== END | disposition home or self-care (01) ==
LOC: LAB 14:16
PROVIDERS: PCP Physician Assistant; Referring Provider Internal Medicine Cardiovascular Disease; Visit Provider Internal Medicine Cardiovascular Disease
DX: I25.10 Atherosclerotic heart disease of native coronary artery without angina pectoris (principal); E66.01 Morbid (severe) obesity due to excess calories; Z68.41 Body mass index [BMI] 40.0-44.9, adult; E11.9 Type 2 diabetes mellitus without complications; E78.5 Hyperlipidemia, unspecified; Z95.5 Presence of coronary angioplasty implant and graft
CPT/HCPCS: 36415; 80053; 84443; 85027